=== PATIENT | male | born 1935 | race Caucasian/White ===

== ENCOUNTER 2019-09-27 08:49 | Emergency (ER) | payer OTHER ==
[~2019-09-27] VITALS: Ht 167.6 cm; Wt 72.6 kg
[2019-09-27 09:20] VITALS: BP_SYST 131
[2019-09-27 10:10] LABS: BASOPHILS % (AUTO) 0.7 % (0.0-2.0); EOSINOPHILS # (AUTO) 0.1 K/uL (0.0-0.4); EOSINOPHILS % (AUTO) 2.1 % (0.0-4.0); HEMATOCRIT 42.6 % (36-54); HEMOGLOBIN 14.2 g/dL (14.0-18.0); LYMPHOCYTES # (AUTO) 0.7 K/uL (1.0-5.5); LYMPHOCYTES % (AUTO) 10.9 % (20.5-51.5); MEAN CORPUSCULAR HEMOGLOBIN 30 pg (27-31); MEAN CORPUSCULAR HGB CONC 33 % (32-36); MEAN CORPUSCULAR VOLUME 90 fL (79.0-98.0); MONOCYTES # (AUTO) 0.5 K/uL (0.0-1.0); MONOCYTES % (AUTO) 8.1 % (1.7-9.3); NEUTROPHILS % (AUTO) 78.2 % (40.0-70.0); PLATELET COUNT (AUTO) 205 K/uL (130-430); RED BLOOD CELL COUNT(AUTO) 4.72 MIL/uL (4.2-6.2); RED CELL DISTRIBUTION WIDTH 13.4 % (9.0-15.0); WHITE BLOOD COUNT (AUTO) 6.3 K/uL (4.8-10.8)
[2019-09-27 10:39] LABS: ALANINE AMINOTRANSFERASE 25 U/L (12-78); ALBUMIN 3.8 g/dL (3.4-4.8); ANION GAP 4 (5-15); ASPARTATE AMINOTRANSFERASE 17 U/L (10-37); CALCIUM 8.7 mg/dL (8.4-11.0); CHLORIDE 105 mmol/L (98-107); CHOLESTEROL 176 mg/dL (<200); CREATININE 1.28 mg/dL (0.55-1.30); GLUCOSE 110 mg/dL (70-99); HDL CHOLESTEROL 60 mg/dL (>45); LDL CHOLESTEROL 107 mg/dL (<100); POTASSIUM 3.6 mmol/L (3.5-5.1); SODIUM SERUM 136 mmol/L (136-145); TOTAL BILIRUBIN 0.6 mg/dL (0.0-1.0); TRIGLYCERIDES 75 mg/dL (30-150); UREA NITROGEN, BLOOD 23 mg/dL (8-21)
[2019-09-27 10:40] LABS: ALCOHOL, BLOOD < 3 mg/dL (<10)
[2019-09-27 10:43] LABS: ACETAMINOPHEN < 1 ug/mL (1-30)
[2019-09-27 12:40] LABS: BILIRUBIN,URINE NEGATIVE (NEGATIVE); BLOOD, URINE NEGATIVE (NEGATIVE); CLARITY/URINE CLEAR (CLEAR); COLOR,URINE YELLOW (YELLOW); GLUCOSE,URINE NEGATIVE (NEGATIVE); KETONES,URINE NEGATIVE (NEGATIVE); LEUKOCYTE ESTERASE ,URINE NEGATIVE (NEGATIVE); NITRITE, URINE NEGATIVE (NEGATIVE); PH,URINE 5.5 (5.0-8.0); PROTEIN URINE NEGATIVE (NEGATIVE)
[2019-09-27 12:52] LABS: BARBITURATE, URINE NEGATIVE (NEG <=200); BENZODIAZEPINE, URINE NEGATIVE (NEG <=150); CANNABINOID, URINE NEGATIVE (NEG <=50); COCAINE, URINE NEGATIVE (NEG <=150); METHAMPHETAMINES SCREEN,URINE NEGATIVE (NEG <=500); OPIATE, URINE NEGATIVE (NEG <=100); PHENCYCLIDINE SCREEN,URINE NEGATIVE (NEG <=25); URINE AMPHETAMINE NEGATIVE (NEG <=500); URINE METHADONE NEGATIVE (NEG <=200); URINE OXYCODONE SCREEN NEGATIVE (NEG <=100); URINE PROPOXYPHENE SCREEN NEGATIVE (NEG <=300)
[2019-09-27 12:53] LABS: UR TRICYCLIC ANTIDEPRESSANTS NEGATIVE (NEG <=300)
[2019-09-27 14:38] VITALS: BP_SYST 129
== END 2019-09-27 15:00 ==
LOC: SED 08:49
DX: Z02.89 Encounter for other administrative examinations (principal); M54.5 Low back pain; I44.4 Left anterior fascicular block; R79.89 Other specified abnormal findings of blood chemistry
CPT/HCPCS: 36415; 80053; 80061; 80307; 81003; 83036; 85025; 87081; 93005; 99285; G0480; G0481; G0482

== ENCOUNTER 2019-09-28 12:57 | Outpatient (CLI) | payer OTHER ==
[2019-09-28 14:10] LABS: CHOLESTEROL 156 mg/dL (<200); HDL CHOLESTEROL 50 mg/dL (>45); TRIGLYCERIDES 54 mg/dL (30-150)
[2019-09-28 14:11] LABS: LDL CHOLESTEROL 94 mg/dL (<100)
== END 2019-09-28 20:16 | disposition home or self-care (01) ==
LOC: SLB 12:57
DX: Z00.00 Encounter for general adult medical examination without abnormal findings (principal); R73.09 Other abnormal glucose
CPT/HCPCS: 36415; 80061; 83036

== ENCOUNTER 2019-10-02 17:53 | Outpatient (CLI) | payer OTHER ==
[2019-10-02 18:21] LABS: ANION GAP 8 (5-15); CHLORIDE 106 mmol/L (98-107); CREATININE 1.53 mg/dL (0.55-1.30); GLUCOSE 93 mg/dL (70-99); SODIUM SERUM 137 mmol/L (136-145); UREA NITROGEN, BLOOD 32 mg/dL (8-21)
== END 2019-10-02 21:10 | disposition home or self-care (01) ==
LOC: SLB 17:53
PROVIDERS: ATTEND Internal Medicine
DX: Z00.00 Encounter for general adult medical examination without abnormal findings (principal)
CPT/HCPCS: 36415; 80048

== ENCOUNTER 2019-10-02 20:46 | Inpatient (IN) | payer OTHER ==
[~2019-10-02] VITALS: Ht 172.7 cm; Wt 59.9 kg
[2019-10-02] MEDS ORDERED: ACETAMINOPHEN 325 MG TABLET PO PRN (22:15)
[2019-10-02] MEDS ORDERED: MAG-AL HYDROX/SIMETH 30 ML UDC PO PRN (22:15)
[2019-10-02] MEDS ORDERED: MILK OF MAGNESIA 30 ML UDC PO PRN (22:15)
[2019-10-02 22:35] VITALS: BP_SYST 130
[2019-10-03] MEDS ORDERED: DOCUSATE SODIUM 100 MG CAPSULE PO SCH
[2019-10-03] MEDS ORDERED: MEMANTINE HCL 5 MG TABLET PO SCH
[2019-10-03] MEDS: cloNIDine HCL 0.1 MG TABLET PO PRN (00:06)
[2019-10-03] MEDS: ZOLPIDEM TARTRATE 5 MG TABLET PO PRN (00:06)
[2019-10-03] MEDS: D5/0.45 NS 1,000 ML IV SCH ×2 (00:07→08:28)
[2019-10-03 00:10] VITALS: BP_SYST 171
[2019-10-03 01:20] VITALS: BP_SYST 127
[2019-10-03 07:13] LABS: BILIRUBIN,URINE NEGATIVE (NEGATIVE); BLOOD, URINE NEGATIVE (NEGATIVE); CLARITY/URINE CLEAR (CLEAR); COLOR,URINE YELLOW (YELLOW); GLUCOSE,URINE NEGATIVE (NEGATIVE); KETONES,URINE NEGATIVE (NEGATIVE); LEUKOCYTE ESTERASE ,URINE NEGATIVE (NEGATIVE); NITRITE, URINE NEGATIVE (NEGATIVE); PROTEIN URINE NEGATIVE (NEGATIVE)
[2019-10-03 07:19] LABS: BASOPHILS # (AUTO) 0.1 K/uL (0.0-0.2); EOSINOPHILS # (AUTO) 0.3 K/uL (0.0-0.4); EOSINOPHILS % (AUTO) 3.7 % (0.0-4.0); HEMATOCRIT 38.3 % (36-54); LYMPHOCYTES # (AUTO) 1.2 K/uL (1.0-5.5); MEAN CORPUSCULAR HEMOGLOBIN 31 pg (27-31); MEAN CORPUSCULAR HGB CONC 34 % (32-36); MEAN CORPUSCULAR VOLUME 91 fL (79.0-98.0); MONOCYTES # (AUTO) 0.8 K/uL (0.0-1.0); NEUTROPHILS # (AUTO) 5.2 K/uL (1.8-7.7); NEUTROPHILS % (AUTO) 68.3 % (40.0-70.0); PLATELET COUNT (AUTO) 177 K/uL (130-430); RED BLOOD CELL COUNT(AUTO) 4.22 MIL/uL (4.2-6.2); RED CELL DISTRIBUTION WIDTH 13.2 % (9.0-15.0); WHITE BLOOD COUNT (AUTO) 7.6 K/uL (4.8-10.8)
[2019-10-03 07:32] LABS: ALANINE AMINOTRANSFERASE 25 U/L (12-78); ALBUMIN 3.3 g/dL (3.4-4.8); ANION GAP 8 (5-15); ASPARTATE AMINOTRANSFERASE 29 U/L (10-37); CALCIUM 8.5 mg/dL (8.4-11.0); CHLORIDE 105 mmol/L (98-107); CREATININE 1.22 mg/dL (0.55-1.30); GLUCOSE 94 mg/dL (70-99); POTASSIUM 3.8 mmol/L (3.5-5.1); SODIUM SERUM 135 mmol/L (136-145); TOTAL BILIRUBIN 0.7 mg/dL (0.0-1.0); UREA NITROGEN, BLOOD 32 mg/dL (8-21)
[2019-10-03] MEDS: QUEtiapine FUMARATE 25 MG TABLET PO SCH ×2 (08:27→22:08)
[2019-10-03] MEDS: MEMANTINE HCL 5 MG TABLET PO SCH ×2 (08:27→22:08)
[2019-10-03] MEDS: DOCUSATE SODIUM 100 MG CAPSULE PO SCH ×2 (08:27→22:09)
[2019-10-03] MEDS: MULTIVITS,CA,MINERALS/IRON/FA 1 TABLET PO SCH (08:27)
[2019-10-03 08:35] VITALS: BP_SYST 139
[2019-10-03 12:32] VITALS: BP_SYST 129
[2019-10-03] MEDS: NACL 0.9% 1,000 ML IV SCH (15:45)
[2019-10-03 16:50] VITALS: BP_SYST 123
[2019-10-03 20:48] VITALS: BP_SYST 160
[2019-10-04 00:25] VITALS: BP_SYST 150
[2019-10-04] MEDS: NACL 0.9% 1,000 ML IV SCH ×2 (03:50→17:10)
[2019-10-04 05:35] LABS: URINE SODIUM, RANDOM 40 mmol/L (40-220)
[2019-10-04 06:15] LABS: ALANINE AMINOTRANSFERASE 21 U/L (12-78); ANION GAP 7 (5-15); ASPARTATE AMINOTRANSFERASE 27 U/L (10-37); CALCIUM 8.4 mg/dL (8.4-11.0); CHLORIDE 106 mmol/L (98-107); CREATININE 1.12 mg/dL (0.55-1.30); GLUCOSE 80 mg/dL (70-99); PHOSPHORUS 2.8 mg/dL (2.7-4.5); POTASSIUM 3.8 mmol/L (3.5-5.1); SODIUM SERUM 138 mmol/L (136-145); TOTAL BILIRUBIN 0.6 mg/dL (0.0-1.0); UREA NITROGEN, BLOOD 26 mg/dL (8-21)
[2019-10-04 07:12] LABS: BASOPHILS % (AUTO) 0.6 % (0.0-2.0); EOSINOPHILS # (AUTO) 0.2 K/uL (0.0-0.4); EOSINOPHILS % (AUTO) 3.4 % (0.0-4.0); HEMATOCRIT 35.7 % (36-54); HEMOGLOBIN 12.2 g/dL (14.0-18.0); LYMPHOCYTES # (AUTO) 1.2 K/uL (1.0-5.5); LYMPHOCYTES % (AUTO) 18.3 % (20.5-51.5); MEAN CORPUSCULAR HEMOGLOBIN 31 pg (27-31); MEAN CORPUSCULAR HGB CONC 34 % (32-36); MEAN CORPUSCULAR VOLUME 90 fL (79.0-98.0); MONOCYTES # (AUTO) 0.7 K/uL (0.0-1.0); MONOCYTES % (AUTO) 10.5 % (1.7-9.3); NEUTROPHILS # (AUTO) 4.5 K/uL (1.8-7.7); NEUTROPHILS % (AUTO) 67.2 % (40.0-70.0); PLATELET COUNT (AUTO) 184 K/uL (130-430); RED BLOOD CELL COUNT(AUTO) 3.99 MIL/uL (4.2-6.2); RED CELL DISTRIBUTION WIDTH 13.3 % (9.0-15.0); WHITE BLOOD COUNT (AUTO) 6.7 K/uL (4.8-10.8)
[2019-10-04 08:00] VITALS: BP_SYST 153
[2019-10-04] MEDS: DOCUSATE SODIUM 100 MG CAPSULE PO SCH ×2 (09:11→21:29)
[2019-10-04] MEDS: MULTIVITS,CA,MINERALS/IRON/FA 1 TABLET PO SCH (09:11)
[2019-10-04] MEDS: QUEtiapine FUMARATE 25 MG TABLET PO SCH ×2 (09:11→21:29)
[2019-10-04] MEDS: MEMANTINE HCL 5 MG TABLET PO SCH ×2 (09:12→21:29)
[2019-10-04 10:14] LABS: CREATININE, URINE 48.9 mg/dL; MICROALBUMIN URINE RANDOM < 3.0 ug/ml (NOT ESTABLISHED); MICROALBUMIN/CREAT RATIO, UR <6.1 MG/G CRE (0.0-30.0)
[2019-10-04 12:50] VITALS: BP_SYST 148
[2019-10-04 16:39] VITALS: BP_SYST 148
[2019-10-04 20:00] VITALS: BP_SYST 163
[2019-10-05 00:12] VITALS: BP_SYST 146
[2019-10-05] MEDS: NACL 0.9% 1,000 ML IV SCH (06:30)
[2019-10-05 08:00] VITALS: BP_SYST 149
[2019-10-05] MEDS: MULTIVITS,CA,MINERALS/IRON/FA 1 TABLET PO SCH (08:31)
[2019-10-05] MEDS: DOCUSATE SODIUM 100 MG CAPSULE PO SCH ×2 (08:31→21:02)
[2019-10-05] MEDS: MEMANTINE HCL 5 MG TABLET PO SCH ×2 (08:32→21:03)
[2019-10-05 09:24] LABS: ANION GAP 8 (5-15); CALCIUM 8.2 mg/dL (8.4-11.0); CHLORIDE 105 mmol/L (98-107); CREATININE 1.06 mg/dL (0.55-1.30); GLUCOSE 78 mg/dL (70-99); POTASSIUM 3.7 mmol/L (3.5-5.1); SODIUM SERUM 135 mmol/L (136-145); UREA NITROGEN, BLOOD 25 mg/dL (8-21)
[2019-10-05 13:22] VITALS: BP_SYST 128
[2019-10-05 17:35] VITALS: BP_SYST 125
[2019-10-05 19:00] VITALS: BP_SYST 151
[2019-10-05 20:00] VITALS: BP_SYST 151
[2019-10-05] MEDS: QUEtiapine FUMARATE 25 MG TABLET PO SCH (21:03)
[2019-10-05] MEDS: LORazepam 1 MG TABLET PO PRN (22:02)
[2019-10-06] VITALS (12 sets, daily range): BP systolic 119–207
[2019-10-06] MEDS: cloNIDine HCL 0.1 MG TABLET PO PRN ×3 (00:10→20:25)
[2019-10-06] MEDS: NACL 0.9% 1,000 ML IV SCH ×3 (06:08→22:30)
[2019-10-06] MEDS: MEMANTINE HCL 5 MG TABLET PO SCH ×2 (10:12→20:24)
[2019-10-06] MEDS: DOCUSATE SODIUM 100 MG CAPSULE PO SCH ×2 (10:12→20:22)
[2019-10-06] MEDS: MULTIVITS,CA,MINERALS/IRON/FA 1 TABLET PO SCH (10:12)
[2019-10-06] MEDS: LORazepam 1 MG TABLET PO PRN (20:24)
[2019-10-06] MEDS: ZOLPIDEM TARTRATE 5 MG TABLET PO PRN (20:24)
[2019-10-06] MEDS: QUEtiapine FUMARATE 25 MG TABLET PO SCH (20:24)
[2019-10-07 00:40] VITALS: BP_SYST 103
[2019-10-07] MEDS: NACL 0.9% 1,000 ML IV SCH ×2 (01:02→15:00)
[2019-10-07 08:00] VITALS: BP_SYST 132
[2019-10-07] MEDS: DOCUSATE SODIUM 100 MG CAPSULE PO SCH ×2 (08:23→22:30)
[2019-10-07] MEDS: MULTIVITS,CA,MINERALS/IRON/FA 1 TABLET PO SCH (08:23)
[2019-10-07] MEDS: QUEtiapine FUMARATE 25 MG TABLET PO SCH ×2 (08:23→22:30)
[2019-10-07] MEDS: MEMANTINE HCL 5 MG TABLET PO SCH ×2 (08:23→22:30)
[2019-10-07 08:29] LABS: ANION GAP 8 (5-15); CALCIUM 8.1 mg/dL (8.4-11.0); CHLORIDE 106 mmol/L (98-107); CREATININE 1.11 mg/dL (0.55-1.30); GLUCOSE 80 mg/dL (70-99); POTASSIUM 3.7 mmol/L (3.5-5.1); SODIUM SERUM 137 mmol/L (136-145); UREA NITROGEN, BLOOD 24 mg/dL (8-21)
[2019-10-07 12:00] VITALS: BP_SYST 101
[2019-10-07 16:00] VITALS: BP_SYST 135
[2019-10-07 20:00] VITALS: BP_SYST 135; BP_SYST 159
[2019-10-08 01:08] VITALS: BP_SYST 135
[2019-10-08 02:59] VITALS: BP_SYST 139
[2019-10-08 08:00] VITALS: BP_SYST 157
[2019-10-08] MEDS: MEMANTINE HCL 5 MG TABLET PO SCH ×2 (10:07→20:12)
[2019-10-08] MEDS: DOCUSATE SODIUM 100 MG CAPSULE PO SCH ×2 (10:07→20:12)
[2019-10-08] MEDS: MULTIVITS,CA,MINERALS/IRON/FA 1 TABLET PO SCH (10:08)
[2019-10-08 12:00] VITALS: BP_SYST 171
[2019-10-08] MEDS: QUEtiapine FUMARATE 25 MG TABLET PO SCH ×2 (12:27→20:12)
[2019-10-08 16:00] VITALS: BP_SYST 153
[2019-10-08 19:34] VITALS: BP_SYST 158
[2019-10-08] MEDS: NACL 0.9% 1,000 ML IV SCH (20:00)
[2019-10-08] MEDS: cloNIDine HCL 0.1 MG TABLET PO PRN (21:40)
== END 2019-10-08 21:45 | DRG 682 ==
LOC: STU 21:32 → SMU 10-04 13:18
PROVIDERS: ADMIT Internal Medicine; ATTEND Internal Medicine
DX: N17.9 Acute kidney failure, unspecified (principal); G93.41 Metabolic encephalopathy; E44.0 Moderate protein-calorie malnutrition; F03.91 Unspecified dementia, unspecified severity, with behavioral disturbance; F29 Unspecified psychosis not due to a substance or known physiological condition; E66.9 Obesity, unspecified; E86.0 Dehydration; M19.90 Unspecified osteoarthritis, unspecified site; Z91.19 Patient's noncompliance with other medical treatment and regimen; Z68.20 Body mass index [BMI] 20.0-20.9, adult
CPT/HCPCS: 36415; 76770; 80048; 80053; 81003; 82043; 82570; 82570-TC; 83735-TC; 84100-TC; 84302-TC; 84550-TC; 85025; 87081; 87086; G0378; J7030

== ENCOUNTER → 2019-10-09 | Outpatient (CLI) | payer OTHER ==
[2019-10-09 11:20] LABS: CHOLESTEROL 163 mg/dL (<200); HDL CHOLESTEROL 51 mg/dL (>45); LDL CHOLESTEROL 102 mg/dL (<100); TRIGLYCERIDES 51 mg/dL (30-150)
== END | disposition home or self-care (01) ==
LOC: SLB 10:42
PROVIDERS: ATTEND Psychiatry & Neurology Psychiatry
DX: Z00.00 Encounter for general adult medical examination without abnormal findings (principal)
CPT/HCPCS: 36415; 80061; 83036

== ENCOUNTER 2019-11-18 18:04 | Inpatient (IN) | payer OTHER ==
[~2019-11-18] VITALS: Ht 162.6 cm; Wt 53.1 kg
[2019-11-18 18:11] VITALS: BP_SYST 122
--- NOTE | 2019-11-18 18:15 | NUR ---
Patient triaged and placed in waiting room. VSS and patient appears in no acute distress at this time. Accompanied by EMS, awaiting available bed, and MD notified of need for MSE.
--- NOTE | 2019-11-18 19:00 | NUR ---
ER at bedside examining patient.
--- NOTE | 2019-11-18 19:15 | NUR ---
Pt brought in by BLS Ambulance. Pt brought in by ambulance after [facility] staff stated that the patient had difficulty breathing. Staff stated that patient had sp02 saturation of 85% prior to EMS arrival. Pt is normally nonverbal, unable to answer questions. At time of ED presentation, pt VSS, resting comfortably, no acute signs of distress, pain, guarding, accessory muscle use or retractions. VSS
--- NOTE | 2019-11-18 20:00 | NUR ---
ER at bedside examining patient.
[2019-11-18 20:05] LABS: BASOPHILS # (AUTO) 0.1 K/uL (0.0-0.2); BASOPHILS % (AUTO) 0.5 % (0.0-2.0); EOSINOPHILS # (AUTO) 0.1 K/uL (0.0-0.4); EOSINOPHILS % (AUTO) 0.9 % (0.0-4.0); HEMATOCRIT 43.1 % (36-54); LYMPHOCYTES # (AUTO) 1.4 K/uL (1.0-5.5); LYMPHOCYTES % (AUTO) 10.5 % (20.5-51.5); MEAN CORPUSCULAR HEMOGLOBIN 30 pg (27-31); MEAN CORPUSCULAR HGB CONC 32 % (32-36); MEAN CORPUSCULAR VOLUME 91 fL (79.0-98.0); MONOCYTES # (AUTO) 0.8 K/uL (0.0-1.0); MONOCYTES % (AUTO) 5.9 % (1.7-9.3); NEUTROPHILS # (AUTO) 11.2 K/uL (1.8-7.7); NEUTROPHILS % (AUTO) 82.2 % (40.0-70.0); PLATELET COUNT (AUTO) 290 K/uL (130-430); RED BLOOD CELL COUNT(AUTO) 4.75 MIL/uL (4.2-6.2); RED CELL DISTRIBUTION WIDTH 13.6 % (9.0-15.0); WHITE BLOOD COUNT (AUTO) 13.6 K/uL (4.8-10.8)
[2019-11-18 20:11] LABS: ANION GAP 10 (5-15); CALCIUM 8.7 mg/dL (8.4-11.0); CHLORIDE 118 mmol/L (98-107); CREATININE 1.27 mg/dL (0.55-1.30); GLUCOSE 77 mg/dL (70-99); POTASSIUM 3.4 mmol/L (3.5-5.1); SODIUM SERUM 149 mmol/L (136-145); UREA NITROGEN, BLOOD 28 mg/dL (8-21)
[2019-11-18] MEDS ORDERED: cefTRIAXone 1 GM in D5W 50 ML IV ONE (20:15)
[2019-11-18] MEDS ORDERED: LORazepam 2 MG/ML VIAL IVP ONE (20:15)
[2019-11-18] MEDS ORDERED: NACL 0.9% 1,000 ML IV ONE (20:15)
[2019-11-18 20:17] LABS: ALANINE AMINOTRANSFERASE 29 U/L (12-78); ALBUMIN 2.2 g/dL (3.4-4.8); ASPARTATE AMINOTRANSFERASE 24 U/L (10-37); TOTAL BILIRUBIN 0.6 mg/dL (0.0-1.0)
[2019-11-18 20:18] LABS: ALCOHOL, BLOOD < 3 mg/dL (<10)
--- NOTE | 2019-11-18 21:00 | NUR ---
Pt resting in ED bed comfortably
--- NOTE | 2019-11-18 21:45 | NUR ---
Patient will be admitted to care of [facility]. Admitted to Tele unit. Will go to room 113B. Belongings list completed. Complete and up to date summary report printed. SBAR report to be given at bedside with opportunity for questions.
[2019-11-18] MEDS ORDERED: ACET-2165 PO ×2 (21:52→21:53)
[2019-11-18] MEDS ORDERED: CAT.1 PO (21:54)
[2019-11-18] MEDS ORDERED: DOCU-144 PO (21:55)
[2019-11-18] MEDS ORDERED: HYDR-3698 PO (21:55)
[2019-11-18] MEDS ORDERED: LORA-258 PO (21:56)
[2019-11-18] MEDS ORDERED: MAG-149 (22:00)
[2019-11-18] MEDS ORDERED: ANT30 PO (22:00)
[2019-11-18] MEDS ORDERED: MEGE40TA PO (22:01)
[2019-11-18] MEDS ORDERED: MELA5TAB12 PO (22:03)
[2019-11-18] MEDS ORDERED: MEGE400O4 PO (22:03)
[2019-11-18] MEDS ORDERED: MEMA10TA PO (22:04)
[2019-11-18] MEDS ORDERED: MOM PO (22:05)
[2019-11-18] MEDS ORDERED: MOXI400T30 PO (22:06)
[2019-11-18] MEDS ORDERED: MULT-1100 PO (22:07)
[2019-11-18] MEDS ORDERED: SER25 PO (22:07)
[2019-11-18] MEDS ORDERED: RISP1TAB7 PO (22:08)
[2019-11-18] MEDS ORDERED: ZOLP5TAB2 PO (22:09)
--- NOTE | 2019-11-18 22:09 | NUR ---
Medication reconciliation completed with information provided by [facility]. Any prior medication reconciliation on file was reviewed and corrected.
[2019-11-19 00:10] LABS: BILIRUBIN,URINE 1+ (NEGATIVE); CLARITY/URINE CLEAR (CLEAR); COLOR,URINE YELLOW (YELLOW); GLUCOSE,URINE NEGATIVE (NEGATIVE); KETONES,URINE 1+ (NEGATIVE); LEUKOCYTE ESTERASE ,URINE NEGATIVE (NEGATIVE); NITRITE, URINE NEGATIVE (NEGATIVE); PH,URINE 5.5 (5.0-8.0); PROTEIN URINE NEGATIVE (NEGATIVE)
[2019-11-19 00:11] LABS: BLOOD, URINE TRACE (NEGATIVE)
--- NOTE | 2019-11-19 00:15 | NUR ---
ADMISSION NOTE: Received patient from ER via gurney. Patient admitted with diagnosis of PNA, SEPSIS . Patient is awake, alert, oriented X 1. Patient oriented to hospital room, call light, toileting, pain management and safety-teach back done. Patient informed that DALIA will be HIS nurse and that their room number is 133A. Personal belongings checked and Belongings List documented. Call light within reach.
[2019-11-19 00:49] LABS: BACTERIA,URINE FEW /HPF (None Seen); WBC,URINE 0-3 /HPF (0-3)
[2019-11-19 01:00] VITALS: BP_SYST 110
--- NOTE | 2019-11-19 01:00 | NUR ---
ASSUMED CARE. RECEIVED AWAKE, ALERT, NON-VERBAL. AFEBRILE, NOT IN ACUTE DISTRESS. NO PAIN OR DISCOMFORT NOTED. WITH SALINE LOCK TO THE RIGHT FOREARM #20 INTACT. SAO2=97% ON ROOM AIR. SINUS RHYTHM AT 70-80'S/MINUTE ON THE MONITOR. VS STABLE, WILL CONTINUE TO MONITOR. NEEDS ATTENDED.
[2019-11-19] MEDS ORDERED: AZITHROMYCIN 500 MG/VIAL (ZITHROMAX) IV ONE (02:10)
[2019-11-19] MEDS ORDERED: cefTRIAXone 1 GM IVPB PREMIX 50 ML IV ONE (02:10)
[2019-11-19] MEDS: 0.45% NACL 1,000 ML IV SCH ×3 (02:13→17:38)
--- NOTE | 2019-11-19 02:14 | NUR ---
IV FLUID 1/2 NS @ 75 ML/HR AND ROCEPHIN 1 GM IVPB GIVEN ORDERED.
[2019-11-19] MEDS: AZITHROMYCIN 500 MG in NS 250 ML IV SCH (02:45)
--- NOTE | 2019-11-19 02:45 | NUR ---
ZITHROMAX 500 MG IVPB ADMINISTERED.
--- NOTE | 2019-11-19 04:00 | NUR ---
ASLEEP, NOT IN ANY KIND OF DISTRESS. NO PAIN OR DISCOMFORT NOTED. SIDE RAILS UP,CALL LIGHT WITHIN REACH. KEPT WARM AND COMFORTABLE.
--- NOTE | 2019-11-19 05:25 | NUR ---
CONSULTATION PAGED/CALLED Reason for Consultation: PNA Person Who was Notified: MARILIN Consulting Physician: DR. SMITH; CAKE TESTER- DR. LEON Ordering Physician: DR. GLEASON
--- NOTE | 2019-11-19 05:27 | NUR ---
CONSULTATION PAGED/CALLED Reason for Consultation: SEPSIS Person Who was Notified:MARILIN Consulting Physician: NICOLE BRIGHT Ordering Physician: DR. GLEASON FAXED FACESHEET TO 'S OFFICE f)[phone]
--- NOTE | 2019-11-19 07:26 | NUR ---
ENDORSED CARE TO TITUS LEWIS
--- NOTE | 2019-11-19 07:30 | NUR ---
Opening note Patient is A/ox1, nonverbal, awake. No sob. No complaints of pain. Iv patent, intact, and infusing fluids as ordered. No adverse side effects noted. No infiltration noted. On safety and aspiration precautions, HOB kept elevated, 3 side rails up, call light within reach. patient in stable condition. Will continue to monitor.
--- NOTE | 2019-11-19 07:30 | NUR ---
ENDORSED CARE TO TITUS LEWIS
[2019-11-19 08:00] VITALS: BP_SYST 158
[2019-11-19 08:31] LABS: BASOPHILS # (AUTO) 0.1 K/uL (0.0-0.2); BASOPHILS % (AUTO) 0.4 % (0.0-2.0); EOSINOPHILS # (AUTO) 0.1 K/uL (0.0-0.4); EOSINOPHILS % (AUTO) 0.7 % (0.0-4.0); HEMATOCRIT 44.5 % (36-54); HEMOGLOBIN 14.4 g/dL (14.0-18.0); LYMPHOCYTES # (AUTO) 1.1 K/uL (1.0-5.5); LYMPHOCYTES % (AUTO) 7.7 % (20.5-51.5); MEAN CORPUSCULAR HEMOGLOBIN 29 pg (27-31); MEAN CORPUSCULAR HGB CONC 32 % (32-36); MEAN CORPUSCULAR VOLUME 91 fL (79.0-98.0); MONOCYTES # (AUTO) 0.6 K/uL (0.0-1.0); MONOCYTES % (AUTO) 4.1 % (1.7-9.3); NEUTROPHILS # (AUTO) 12.1 K/uL (1.8-7.7); NEUTROPHILS % (AUTO) 87.1 % (40.0-70.0); PLATELET COUNT (AUTO) 323 K/uL (130-430); RED BLOOD CELL COUNT(AUTO) 4.91 MIL/uL (4.2-6.2); RED CELL DISTRIBUTION WIDTH 13.7 % (9.0-15.0); WHITE BLOOD COUNT (AUTO) 13.8 K/uL (4.8-10.8)
[2019-11-19 09:04] LABS: ALANINE AMINOTRANSFERASE 26 U/L (12-78); ALBUMIN 2.8 g/dL (3.4-4.8); ANION GAP 14 (5-15); ASPARTATE AMINOTRANSFERASE 24 U/L (10-37); CALCIUM 8.9 mg/dL (8.4-11.0); CHLORIDE 116 mmol/L (98-107); CREATININE 1.39 mg/dL (0.55-1.30); GLUCOSE 86 mg/dL (70-99); POTASSIUM 3.4 mmol/L (3.5-5.1); SODIUM SERUM 152 mmol/L (136-145); TOTAL BILIRUBIN 0.7 mg/dL (0.0-1.0); UREA NITROGEN, BLOOD 27 mg/dL (8-21)
--- NOTE | 2019-11-19 09:30 | NUR ---
NPO Patient unable to eat breakfast. Poor swallowing noted. Patient currently NPO.
--- NOTE | 2019-11-19 10:35 | NUR ---
Nutrition Update Matthew Scale 14 noted. Pt admitted for pneumonia, sepsis. Diet: cardiac BMI: 17.6 kg/m2 RD to follow per nutrition care standards.
--- NOTE | 2019-11-19 11:00 | NUR ---
misty ESCOBAR Spoke with Dr. quinones about patients poor swallowing. New orders noted. Patient to remain NPO.
--- NOTE | 2019-11-19 11:27 | NUR ---
S.T. SWALLOW EVAL SWALLOW EVAL COMPLETED. PT PRESENTS W/ SEV PRE-ORAL, ORAL, AND PHARYNGEAL DYSPHAGIA W/ POOR BOLUS AWARENESS, POOR BOLUS CORPORATE SCHEDULER, POOR BOLUS MANIPULATION, SEV DELAYED OR ABSENT SWALLOW WITH COUGHING ON TSP HONEY THICK LIQUIDS. PT W/ DIFFICULTY MANAGING OWN SECRETIONS WITH VERY WEAK COUGH. PT IS AT HIGH RISK FOR ASPIRATION. REC: STRICT NPO. ALTERNATIVE METHOD FOR FEEDING. NURSE TITUS NOTIFIED. G8996 CM G8997 CM G8998 CM NOMS LEVEL 2
[2019-11-19 12:42] VITALS: BP_SYST 147
--- NOTE | 2019-11-19 14:34 | NUR ---
Skin care Skin care provided. patient turned and repositioned. Linens changed. No other needs at this time.
--- NOTE | 2019-11-19 16:30 | NUR ---
skin care Skin care provided, oral care provided. No other needs at this time.
[2019-11-19 16:32] VITALS: BP_SYST 141
--- NOTE | 2019-11-19 17:54 | NUR ---
rounds patient noted with incontinence of urine. Skin care provided. linens changed. No other needs at this time.
--- NOTE | 2019-11-19 18:14 | NUR ---
CONSULTATION PAGED REASON FOR CONSULTATION:WEAKNESS WAS CONSULT CALLED?Y PERSON WHO WAS NOTIFIED:JOSSE CONSULTING PHYSICIAN:MELQUIADES ELLISON DIRECTOR OF FEDERAL SALES SPECIALTY:NEURO DIRECTOR OF FEDERAL SALES PHONE NUMBER:[phone] REQUESTING PHYSICIAN:AMARJIT LITTLE
--- NOTE | 2019-11-19 18:23 | NUR ---
CONSULTATION PAGED REASON FOR CONSULTATION:PNA WAS CONSULT CALLED?Y PERSON WHO WAS NOTIFIED:MIREYA CONSULTING PHYSICIAN:PEDRO FRENCH FARM SERVICE ADVISER SPECIALTY:INFECTIOUS DISEASE FARM SERVICE ADVISER PHONE NUMBER:[phone] REQUESTING PHYSICIAN:AMARJIT LITTLE
--- NOTE | 2019-11-19 18:36 | NUR ---
closing note Patient is A/ox1, nonverbal, awake. No sob. No complaints of pain. Iv patent, intact, and infusing fluids as ordered. No adverse side effects noted. No infiltration noted. On safety and aspiration precautions, HOB kept elevated, 3 side rails up, call light within reach. patient in stable condition. All needs met.
[2019-11-19 18:41] LABS: BASOPHILS # (AUTO) 0.1 K/uL (0.0-0.2); BASOPHILS % (AUTO) 0.6 % (0.0-2.0); EOSINOPHILS # (AUTO) 0.1 K/uL (0.0-0.4); HEMOGLOBIN 15.1 g/dL (14.0-18.0); LYMPHOCYTES # (AUTO) 1.4 K/uL (1.0-5.5); LYMPHOCYTES % (AUTO) 10.2 % (20.5-51.5); MEAN CORPUSCULAR HEMOGLOBIN 29 pg (27-31); MEAN CORPUSCULAR HGB CONC 32 % (32-36); MEAN CORPUSCULAR VOLUME 91 fL (79.0-98.0); MONOCYTES # (AUTO) 0.8 K/uL (0.0-1.0); MONOCYTES % (AUTO) 6.1 % (1.7-9.3); NEUTROPHILS # (AUTO) 11.2 K/uL (1.8-7.7); NEUTROPHILS % (AUTO) 82.1 % (40.0-70.0); PLATELET COUNT (AUTO) 299 K/uL (130-430); RED BLOOD CELL COUNT(AUTO) 5.16 MIL/uL (4.2-6.2); RED CELL DISTRIBUTION WIDTH 13.7 % (9.0-15.0); WHITE BLOOD COUNT (AUTO) 13.7 K/uL (4.8-10.8)
[2019-11-19] MEDS: D5/0.45 NS 1,000 ML IV SCH (18:48)
--- NOTE | 2019-11-19 19:10 | NUR ---
OPENING NOTES Late entry due to patient care. Patient in bed sleeping. No s/s of acute distress noted. Breathing even and unlabored. IVF infusing well, HOB raised, nasal canula attached properly, on 2L of oxygen. Bed alarm on. Bed is locked and at lowest position. Will continue to monitor.
--- NOTE | 2019-11-19 19:10 | NUR ---
OPENING NOTES Bedside report received from [facility] nurse. Patient received lying in bed, awake, no s/s of acute distress noted. Breathing is even and unlabored. HOB raised, trach to TBAR attached. Gtube infusing well. Sandoval attached, secured and draining by gravity. Bed alarm on. Will continue to monitor. Addendum: 11/20/19 at 0533 by Chuy Romero RN INPUTTED FOR WRONG PATIENT
[2019-11-19 20:00] VITALS: BP_SYST 145
[2019-11-19] MEDS: cefTRIAXone 1 GM IVPB PREMIX 50 ML IV SCH (20:07)
--- NOTE | 2019-11-19 21:00 | NUR ---
ROUNDS Patient in bed sleeping. No s/s of acute distress noted. Breathing even and unlabored. HOB raised. Nasal canula attached properly. IVF infusing well. All needs met. bed alarm on. Will continue to monitor.
--- NOTE | 2019-11-19 23:00 | NUR ---
ROUNDS Patient in bed asleep. No signs of discomfort noted. All needs met. Call light with patient. Bed alarm on. Will continue to monitor.
[2019-11-20] VITALS: BP_SYST 151
[2019-11-20] MEDS: AZITHROMYCIN 500 MG in NS 250 ML IV SCH ×2 (00:54→23:34)
--- NOTE | 2019-11-20 01:00 | NUR ---
VOID/PERICARE Pericare done by RN at this time. Sheets replaced. All needs met. Bed alarm on. Will continue to monitor.
--- NOTE | 2019-11-20 03:00 | NUR ---
ROUNDS Patient in bed asleep. No s/s of acute distress noted. Breathing even and unlabored. HOB raised. IVF infusing well. Bed alarm on. Will continue to monitor.
--- NOTE | 2019-11-20 05:00 | NUR ---
ROUNDS Patient in bed sleeping. No signs of discomfort noted. Chest rise and fall even bilaterally. All needs met. Call light with patient. Bed alarm on. Will continue to monitor.
--- NOTE | 2019-11-20 06:18 | NUR ---
CLOSING NOTES Patient at bedside sleeping at this time. No s/s of acute distress noted. Breathing is even and unlabored. HOB raised, nasal canula attached properly, on 2L of oxygen. IVF infusing well, IV site patent, no signs of infiltration or infection noted. All needs met throughout shift. Fall and safety precautions maintained throughout shift. Will continue to monitor until patient care is endorsed to oncoming dayshift nurse.
[2019-11-20 08:00] VITALS: BP_SYST 108
[2019-11-20 09:12] LABS: ANION GAP 8 (5-15); CALCIUM 8.4 mg/dL (8.4-11.0); CHLORIDE 119 mmol/L (98-107); GLUCOSE 89 mg/dL (70-99); POTASSIUM 3.2 mmol/L (3.5-5.1); SODIUM SERUM 147 mmol/L (136-145); UREA NITROGEN, BLOOD 22 mg/dL (8-21)
--- NOTE | 2019-11-20 09:30 | NUR ---
skin care Patient noted with episode of urine incontinence. Skin care provided. linens changed. Oral care provided. No other needs at this time.
--- NOTE | 2019-11-20 11:45 | NUR ---
Rounds Patient noted with incontinence of bladder. Linens changed, skin care provided. no other needs at this time.
[2019-11-20 12:48] VITALS: BP_SYST 147
--- NOTE | 2019-11-20 13:50 | NUR ---
Rounds Patient resting in bed at this time. No signs of pain. No SOB. Patient kept NPO. HOB kept elevated, 3 side rails up, call light within reach. patient in stable condition.
[2019-11-20] MEDS: D5/0.45 NS 1,000 ML IV SCH (14:53)
--- NOTE | 2019-11-20 15:55 | NUR ---
Rounds patient resting in bed at this time, no complaints of pain. IV patent, intact, and infusing fluids as ordered. no adverse side effects noted. No infiltration noted. No other needs at this time. patient in stable condition.
--- NOTE | 2019-11-20 17:15 | NUR ---
CONSULT GI DYSPHAGIA KYLEE HOLLIDAY [phone] S/W RICHY EXCHANGE
--- NOTE | 2019-11-20 17:18 | NUR ---
Dr. Edwards reported patients potassium to MD. New orders noted. patient to be seen by GI. Attempted to reach family for possible GTube placement if needed. Called daughter left message. Awaiting call back.
[2019-11-20 17:19] VITALS: BP_SYST 152
[2019-11-20] MEDS: KCL 40mEq in D5/0.45NS 1000 mL 1,000 ML IV SCH (17:25)
--- NOTE | 2019-11-20 18:12 | NUR ---
Closing note Patient resting in bed at this time, A/ox1. nonverbal, awake. No sob. No complaints of pain. Iv patent, intact, and infusing fluids as ordered. No adverse side effects noted. No infiltration noted. On safety and aspiration precautions, HOB kept elevated, 3 side rails up, call light within reach, bed alarm on. patient in stable condition. All needs met.
--- NOTE | 2019-11-20 19:05 | NUR ---
OPENING NOTES Late entry due to patient care. Bedside report received from dayshift nurse. Patient received lying in bed, appears to be asleep, eyes closed, no s/s of acute distress noted. Breathing even and unlabored, HOB raised, nasal canula attached properly, on 2L of oxygen. Bed alarm on. Three side rails up. Bed locked and at lowest position. Will continue to monitor.
[2019-11-20 20:00] VITALS: BP_SYST 147
[2019-11-20] MEDS: cefTRIAXone 1 GM IVPB PREMIX 50 ML IV SCH (20:19)
--- NOTE | 2019-11-20 21:00 | NUR ---
ROUNDS Patient in bed, sleeping. No signs of discomfort noted. Chest rise and fall even bilaterally. IVF infusing well. Bed alar on. Will continue to monitor.
--- NOTE | 2019-11-20 23:00 | NUR ---
INCONTINENT CARE Taylor care rendered by CALCINER FEEDER and RN. Patient tolerated well. HOB raised, IVF infusing. All needs met. Bed alarm on. Will continue to monitor.
--- NOTE | 2019-11-21 01:00 | NUR ---
ROUNDS Patient in bed sleeping at this time. No s/s of acute distress noted. Breathing even and unlabored. IVF infusing well. HOB raised, nasal canula attached properly. Bed alarm on. Will continue to monitor.
[2019-11-21 02:14] VITALS: BP_SYST 143
--- NOTE | 2019-11-21 03:00 | NUR ---
ROUNDS Patient in bed asleep at this time. No s/s of acute distress noted. Breathing even and unlabored. IVF infusing well. Call light with patient. Bed alarm on. Will continue to monitor.
[2019-11-21] MEDS: KCL 40mEq in D5/0.45NS 1000 mL 1,000 ML IV SCH ×3 (03:15→18:07)
--- NOTE | 2019-11-21 05:40 | NUR ---
PULLED IV OUT/NEW IV Patient pulled out IV at right forearm, catheter fully intact, no active bleeding noted. New IV site inserted at right forearm, 22 gauge. IVF infusing well. No signs of infiltration noted. Bed alarm on. Call light with patient.
--- NOTE | 2019-11-21 06:14 | NUR ---
CLOSING NOTES Patient in bed asleep at this time. No s/s of acute distress noted. Breathing is even and unlabored. HOB raised, nasal canula attached properly, on 2L of oxygen. IVF infusing well, IV site patent, no signs of infiltration or infectio noted. All needs met throughout shift. Fall and safety precautions maintained throughout shift. Will continue to monitor until patient care is endorsed to oncoming dayshift nurse.
[2019-11-21 07:30] LABS: BASOPHILS % (AUTO) 0.4 % (0.0-2.0); EOSINOPHILS # (AUTO) 0.2 K/uL (0.0-0.4); EOSINOPHILS % (AUTO) 1.7 % (0.0-4.0); HEMATOCRIT 42.4 % (36-54); HEMOGLOBIN 14.2 g/dL (14.0-18.0); LYMPHOCYTES # (AUTO) 1.3 K/uL (1.0-5.5); LYMPHOCYTES % (AUTO) 12.7 % (20.5-51.5); MEAN CORPUSCULAR HEMOGLOBIN 30 pg (27-31); MEAN CORPUSCULAR HGB CONC 34 % (32-36); MEAN CORPUSCULAR VOLUME 90 fL (79.0-98.0); MONOCYTES # (AUTO) 0.7 K/uL (0.0-1.0); MONOCYTES % (AUTO) 6.3 % (1.7-9.3); NEUTROPHILS # (AUTO) 8.2 K/uL (1.8-7.7); NEUTROPHILS % (AUTO) 78.9 % (40.0-70.0); PLATELET COUNT (AUTO) 280 K/uL (130-430); RED BLOOD CELL COUNT(AUTO) 4.72 MIL/uL (4.2-6.2); RED CELL DISTRIBUTION WIDTH 13.5 % (9.0-15.0); WHITE BLOOD COUNT (AUTO) 10.4 K/uL (4.8-10.8)
[2019-11-21 07:49] LABS: ANION GAP 8 (5-15); CALCIUM 8.3 mg/dL (8.4-11.0); CHLORIDE 115 mmol/L (98-107); CREATININE 1.07 mg/dL (0.55-1.30); GLUCOSE 110 mg/dL (70-99); POTASSIUM 3.4 mmol/L (3.5-5.1); SODIUM SERUM 147 mmol/L (136-145); UREA NITROGEN, BLOOD 13 mg/dL (8-21)
--- NOTE | 2019-11-21 07:53 | NUR ---
RN INITIAL NOTES RECEIVED PATIENT IN BED AWAKE GARBLED WHEN TALKING NOT ABLE TO UNDERSTAND WORD COMING FROM HIS MOUTH , PATIENT RESP EVEN AND UNLABORED HIS IV NEWLY REINSERTED INFUSING WITH IVF ORDERED , PATIENT SEEN BY DR DIEHL INFORMED PATIENT FAILED ST EVAL AND DR DIEHL WILL WAIT FOR A FEW DAYS FOR NOW ,SATING 1005 Addendum: 11/21/19 at 0758 by Eufemia Malloy RN CORRECTION. PATIENT SATING 100% WITH 2 L/MIN
[2019-11-21 08:15] VITALS: BP_SYST 166
--- NOTE | 2019-11-21 10:03 | NUR ---
ROUNDS SLEEPING AT THIS TIME, NO DISTRESS , NEEDS ATTENDED
[2019-11-21 12:00] VITALS: BP_SYST 126
--- NOTE | 2019-11-21 14:04 | NUR ---
Dietitian Recommendations *Recommend initiate nutrition support in 24 hrs. *Consider NGT feeding Jevity 1.2 at 50ml/hr. Please see Nutritional Assessment for details. CHILANGO, RD
--- NOTE | 2019-11-21 15:19 | NUR ---
KENDRA RESENDEZ FROM [facility] CALLED AND REPORT GIVEN FOR PATIENT CONDITION.
--- NOTE | 2019-11-21 15:59 | NUR ---
DC PLANNING: CLINICALS FAXED TO [facility]) @ [facility]
[2019-11-21 16:00] VITALS: BP_SYST 165
--- NOTE | 2019-11-21 17:00 | NUR ---
DR GLEASON CALLED DR GLEASON INFORMED ABOUT PATIENT CONDITION AND SAID MAINTAIN NPO AND CONT WITH IVF ORDERED , PATIENT CONDITION STILL THE SAME NO FACIAL GRIMACE , WITH RESISTANCE TO CARE Addendum: 11/21/19 at 1815 by Eufemia Malloy RN DR GLEASON INFORMED ABOUT BP READINGS SAID HE WILL COME AND SEE THE PATIENT KEEP NPO
--- NOTE | 2019-11-21 19:30 | NUR ---
Pt is lying in bed awake and oriented to his name only. No acute distress noted. IVF of D5 1/2NS w/ 40meq KCL is infusing well in RFA at 100ml/hr without any signs of infiltration at the IV site. Fall and safety precautions are in place.
[2019-11-21 20:00] VITALS: BP_SYST 127
[2019-11-21] MEDS: cefTRIAXone 1 GM IVPB PREMIX 50 ML IV SCH (21:01)
--- NOTE | 2019-11-21 22:00 | NUR ---
Pt remains confused and disoriented. IVF is infusing well in RFA. Fall and safety precautions are in place.
[2019-11-21] MEDS: AZITHROMYCIN 500 MG in NS 250 ML IV SCH (23:59)
--- NOTE | 2019-11-22 | NUR ---
Pt is awake and not in any distress. IVF is infusing well in RFA. Call light is with pt and bed alarm is on.
[2019-11-22 00:12] VITALS: BP_SYST 154
--- NOTE | 2019-11-22 02:00 | NUR ---
IVF is infusing well. Pt is sleeping, but easily arousable. Fall and safety precautions are in place.
--- NOTE | 2019-11-22 04:00 | NUR ---
Pt is sleeping without any distress noted. IVF is infusing well in RFA.
[2019-11-22] MEDS: KCL 40mEq in D5/0.45NS 1000 mL 1,000 ML IV SCH ×3 (05:41→23:50)
--- NOTE | 2019-11-22 06:30 | NUR ---
Pt is awake and resting quietly in bed. All pt's needs were attended to. IVF is infusing well in RFA. Fall and safety precautions are in place. Will endorse to day shift nurse.
--- NOTE | 2019-11-22 07:45 | NUR ---
AM rounds: Patient is asleep. IV fluids of D5 1.2 NS + KCL 40 MEQ at 100 cc/hr on the right forearm gauge 22. Bed alarm is ON. Call light within reach.
[2019-11-22 08:47] VITALS: BP_SYST 155
--- NOTE | 2019-11-22 11:30 | NUR ---
Rounds: Patient is calm. Call light within reach.
[2019-11-22 12:30] VITALS: BP_SYST 189
--- NOTE | 2019-11-22 12:43 | NUR ---
CASE MANAGEMENT: CM CONTACTED LENA SALAZAR @ , WHO IS LISTED CHILD. HOWEVER, PER LENA, SHE IS NOT RELATED TO THE PATIENT. SHE IS JUST A CAREGIVER/MILITARY COOK AT [facility] WHERE PATIENT USED TO RESIDE PRIOR TO [facility]. PER LENA, PATIENT DOES NOT HAVE ANY FAMILY/RELATIVES. CM CONTACTED [facility] @ . SPOKE WITH TENZIN (DISH NETWORK INSTALLER) TO CHECK IF PATIENT HAS FAMILY/RELATIVE. PER TENZIN, PATIENT HAS NO FAMILY/NEXT OF KIN. ONLY MANAGEMENT DEVELOPMENT SPECIALIST WAS LENA (MILITARY COOK AT [facility]). CM NOTIFIED [facility] AT [facility]. PATIENT IS UNREPRESENTED. PER [facility], THEY CANNOT ACCEPT PATIENT AT THIS TIME PATIENT HAS NO FAMILY. AND NOT ALERT AND ORIENTED TO MAKE HIS OWN DECISION. JACK MADE DR. GLEASON AWARE. Addendum: 11/22/19 at 1542 by Herminia Early RN SPOKE WITH DR. GLEASON REGARDING PATIENT UNREPRESENTED AND [facility] CANNOT ACCEPT PATIENT AT THIS TIME. PER DR. GLEASON, PATIENT IS NOT STABLE TO BE DISCHARGE TO SNF AT THIS TIME. STATED HE WILL BE COMING TO EVALUATE PATIENT AND DECIDE ON DC PLAN.
[2019-11-22 16:44] VITALS: BP_SYST 186
[2019-11-22 17:19] VITALS: BP_SYST 134
--- NOTE | 2019-11-22 17:51 | NUR ---
NO IV ACCESS. IV infiltrated, unable to gain IV access. MD is aware. New order for PICC line.
--- NOTE | 2019-11-22 19:30 | NUR ---
OPENING NOTES Received care of pt and sbar report from daysarft nurse. Patient received lying in bed, appears to be asleep, eyes closed but is easily aroused to speech. No s/s of acute distress noted. Pt has no IV access at this time, plan is for pt to get PICC line this evening. Breathing even and unlabored, HOB raised. Bed alarm on. Three side rails up. Bed locked and at lowest position. Bed alarm is on. Close to nurses station. Will continue to monitor.
--- NOTE | 2019-11-22 21:25 | NUR ---
INCONTINENCE CARE Taylor care rendered by GLOVE TURNER AND FORMER AUTOMATIC and RN. Patient tolerated well. Breathing is unlabored to room air. No s/s of pain or discomfort. All needs met. Bed alarm on. Will continue to monitor.
--- NOTE | 2019-11-22 22:00 | NUR ---
SPOKE TO PICC LINE NURSE PER PICC NURSE, PT NEEDS TO HAVE THE CONSENT SIGNED BY A FAMILY MEMBER OR GUARDIAN.
--- NOTE | 2019-11-22 22:05 | NUR ---
NOTE: ATTEMPTED TO CALL CONTACT LENA SALAZAR (CHILD) AT . PHONE NOT ANSWERED AND ANSWERING MACHINE IS FULL. WILL ATTEMPT TO CALL BACK AT LATER TIME TO OBTAIN CONSENT FOR PICC LINE.
[2019-11-22 23:35] VITALS: BP_SYST 138
--- NOTE | 2019-11-22 23:45 | NUR ---
IV PLACEMENT: # 18 gauge angiocath placed to LEFT FOREARM BY CATHY ORTIZ. Use of asceptic technique. Opsite placed over site. Blood return noted. Flushed with 10 cc of normal saline. No evidence of infiltration noted. Patient tolerated WELL.
[2019-11-22] MEDS: cefTRIAXone 1 GM IVPB PREMIX 50 ML IV SCH (23:50)
--- NOTE | 2019-11-22 23:50 | NUR ---
IVF RESTARTED/ROCEPHIN IVF RESTARTED AND INFUSING AT ORDERED RATE. ROCEPHIN HUNG LATE DUE TO LACK OF IV ACCESS. IV IS PATENT AND INFUSING WELL. NO S/S OF INFILTRATION AT IV SITE. SAFETY MAINTAINED. WILL MONITOR.
--- NOTE | 2019-11-23 02:00 | NUR ---
SLEEPING PT RESTING IN BED WITH EYES CLOSED. VISIBLE SYMMETRICAL RISE AND FALL OF CHEST TO ROOM AIR, NO SOB NOTED. PT APPEARS COMFORTABLE, NO SIGNS OF PAIN OR DISCOMFORT. SAFETY AND FALL PRECAUTIONS ARE IN PLACE. WILL MONITOR.
--- NOTE | 2019-11-23 04:02 | NUR ---
INCONTINENCE CARE Taylor care rendered by FAMILY AND CONSUMER SCIENCES TEACHER and RN. Patient tolerated well. Breathing is unlabored to room air. No s/s of pain or discomfort. All needs met. Bed alarm on. Will continue to monitor.
--- NOTE | 2019-11-23 06:42 | NUR ---
CLOSING NOTE Pt lying in bed, appears to be asleep, eyes closed but is easily aroused to speech. No s/s of acute distress noted. Breathing even and unlabored, HOB raised. Bed alarm on. Three side rails up. Bed locked and at lowest position. Bed alarm is on. Close to nurses station. Will endorse to day shift RN.
[2019-11-23 07:25] VITALS: BP_SYST 133
--- NOTE | 2019-11-23 07:25 | NUR ---
AM ROUNDS: PATIENT SLEEPING DURING ROUNDS. SWOLLEN/REDNESS BILATERAL ARMS . NO IV ACCESS,HARD STICK. NO GUARDIAN AND 2 MD'S TO SIGN CONSENT FOR PICC LINE PLACEMENT FOR EMERGENCY USE.SAFETY MEASURES RENDERED. BED LOCKED AT LOWEST POSITION.BED ALARM ON. CONDITION GUARDED.
--- NOTE | 2019-11-23 09:25 | NUR ---
Iv Notes: Iv re sited at right upper arm using G#22,continue iv fluids as ordered.
--- NOTE | 2019-11-23 11:20 | NUR ---
Rn rounds: Patient relax and calm this time. Not in any respiratory distress.
[2019-11-23 12:37] VITALS: BP_SYST 126
--- NOTE | 2019-11-23 13:15 | NUR ---
Rn Rounds: No acute distress. Continue to monitor.
--- NOTE | 2019-11-23 15:30 | NUR ---
Rn Rounds: Patient sleeping during rounds. Continue to monitor. Safety measures rendered.
[2019-11-23] MEDS: KCL 40mEq in D5/0.45NS 1000 mL 1,000 ML IV SCH (16:39)
[2019-11-23 16:40] VITALS: BP_SYST 145
--- NOTE | 2019-11-23 17:15 | NUR ---
RN ROUNDS: PATIENT RESTING. NO DISTRESS.
--- NOTE | 2019-11-23 18:20 | NUR ---
END OF SHIFT: CALL LIGHT WITH IN REACH. BED LOCKED AT LOWEST POSITION. BED ALARM ON.SAFETY MEASURES RENDERED. IV FLUIDS RUNNING WELL.CONDITION GUARDED.
--- NOTE | 2019-11-23 21:13 | NUR ---
IV REINSERTION IV INFILTRATED, REINSERTED ON THE RIGHT FOREARM G. 22, PATENT, PATIENT TOLERATING WELL. WILL CONTINUE TO MONITOR.
[2019-11-23] MEDS: cefTRIAXone 1 GM IVPB PREMIX 50 ML IV SCH (22:42)
--- NOTE | 2019-11-24 00:14 | NUR ---
PATIENT RESTING: Patient resting quietly. No acute distress noted. Vital signs within normal range.
[2019-11-24 00:18] VITALS: BP_SYST 163
--- NOTE | 2019-11-24 02:15 | NUR ---
ROUNDS PATIENT ASLEEP, RESPIRATIONS EVEN AND UNLABORED, WILL CONTINUE TO MONITOR.
--- NOTE | 2019-11-24 04:13 | NUR ---
PATIENT RESTING: Patient resting quietly. No acute distress noted. Vital signs within normal range.
[2019-11-24] MEDS: KCL 40mEq in D5/0.45NS 1000 mL 1,000 ML IV SCH ×3 (04:24→20:23)
--- NOTE | 2019-11-24 06:52 | NUR ---
CLOSING NOTES PATIENT AWAKE, NO SIGNS OF ANY PAIN AND DISCOMFORT NOTED. ALL NEEDS ATTEDED TO. SAFETY MEASURES MAINTAINED. CALL LIGHT PLACED WITHIN REACH.
--- NOTE | 2019-11-24 07:34 | NUR ---
AM ROUNDS: PATIENT SLEEPING COMFORTABLE ON THE BED. IVF ON GOING AT RIGHT ARM IN PLACE. CALL LIGHT WITH IN REACH. BED LOCKED AT LOWEST POSITION. BED ALARM ON. NO ACUTE DISTRESS.
[2019-11-24 08:15] VITALS: BP_SYST 144
--- NOTE | 2019-11-24 09:25 | NUR ---
RN ROUNDS: PATIENT RESTING DURING ROUNDS. NOT IN ANY RESPIRATORY DISTRESS.
--- NOTE | 2019-11-24 11:30 | NUR ---
Rn Rounds: Patient resting during rounds. Stable. Safety measures rendered.
[2019-11-24 12:50] VITALS: BP_SYST 128
--- NOTE | 2019-11-24 13:00 | NUR ---
Rn Rounds: No acute distress. Continue to monitor.
--- NOTE | 2019-11-24 15:00 | NUR ---
Rn rounds: Awake. No needs this time. No distress.
[2019-11-24 16:52] VITALS: BP_SYST 139
--- NOTE | 2019-11-24 17:00 | NUR ---
RN ROUNDS: RESTING. NO COMPLAINED MADE. SAFETY MEASURES RENDERED. CONTINUE TO MONITOR.
--- NOTE | 2019-11-24 18:22 | NUR ---
CLOSING NOTES: PATIENT RESTING. CALM AND RELAXED. SAFETY MEASURES RENDERED.PRACTICE GUIDELINES MET THROUGH OUT THE SHIFT.
--- NOTE | 2019-11-24 19:05 | NUR ---
OPENING NOTES Bedside report received from dayshift nurse. Patient received lying in bed, turning by himself, appears to be slightly agitated. Breathing is even and unlabored. IVF infusing well, IV site is patent, no signs of infiltration or infection noted. Call light with patient. Bed alarm on. Bed is locked and at lowest position. Will continue to monitor.
[2019-11-24 20:00] VITALS: BP_SYST 135
[2019-11-24] MEDS: cefTRIAXone 1 GM IVPB PREMIX 50 ML IV SCH (20:23)
--- NOTE | 2019-11-24 21:00 | NUR ---
PERICARE Patient cleaned by RN at this time. Patient tolerated well. Bed alarm on. Bed is locked and at lowest position. IVF infusing well. Will continue to monitor.
--- NOTE | 2019-11-24 23:00 | NUR ---
ROUNDS Patient in bed, asleep. No s/s of acute distress noted. Breathing even and unlabored. IVF infusing well. Bed alarm on. Will continue to monitor.
[2019-11-25] VITALS: BP_SYST 132
--- NOTE | 2019-11-25 01:00 | NUR ---
ROUNDS Patient in bed asleep. No signs of discomfort noted. Chest rise and fall even bilaterally. IVF infusing well. All needs met at this time. Bed alarm on. Will continue to monitor.
[2019-11-25] MEDS ORDERED: LEVOFLOXACIN 250 MG/D5W 50 ML IV SCH (02:30)
--- NOTE | 2019-11-25 03:05 | NUR ---
CHANGE START TIME FOR LEVAQUIN Dr. Gates spoke with RN, ordered to start Levaquin in the morning, at 0900. RN will edit order.
--- NOTE | 2019-11-25 05:00 | NUR ---
PERICARE Taylor care rendered by FINANCIAL SALES ASSISTANT and RN. Patient tolerated well. All needs met. Bed alarm on. Will continue to monitor.
[2019-11-25] MEDS ORDERED: LEVOFLOXACIN 250 MG/D5W 50 ML IV ONE (05:09)
--- NOTE | 2019-11-25 06:27 | NUR ---
CLOSING NOTES Patient in bed, sleeping comfortably. No s/s of acute distress noted. Breathing even and unlabored. IVF infusing well, IV site patent, no signs of infiltration or infection noted. HOB raised slightly. All needs met throughout the shift. Fall and safety precautions maintained throughout the shift. Will continue to monitor until patient care is endorsed to oncoming dayshift nurse.
[2019-11-25 07:28] LABS: BASOPHILS # (AUTO) 0.1 K/uL (0.0-0.2); BASOPHILS % (AUTO) 0.5 % (0.0-2.0); EOSINOPHILS # (AUTO) 0.2 K/uL (0.0-0.4); EOSINOPHILS % (AUTO) 1.6 % (0.0-4.0); HEMATOCRIT 43.6 % (36-54); HEMOGLOBIN 14.6 g/dL (14.0-18.0); LYMPHOCYTES # (AUTO) 1.6 K/uL (1.0-5.5); LYMPHOCYTES % (AUTO) 14.9 % (20.5-51.5); MEAN CORPUSCULAR HEMOGLOBIN 30 pg (27-31); MEAN CORPUSCULAR HGB CONC 33 % (32-36); MEAN CORPUSCULAR VOLUME 89 fL (79.0-98.0); MONOCYTES # (AUTO) 0.9 K/uL (0.0-1.0); MONOCYTES % (AUTO) 8.3 % (1.7-9.3); NEUTROPHILS # (AUTO) 8.2 K/uL (1.8-7.7); NEUTROPHILS % (AUTO) 74.7 % (40.0-70.0); PLATELET COUNT (AUTO) 306 K/uL (130-430); RED BLOOD CELL COUNT(AUTO) 4.91 MIL/uL (4.2-6.2); RED CELL DISTRIBUTION WIDTH 13.8 % (9.0-15.0); WHITE BLOOD COUNT (AUTO) 10.9 K/uL (4.8-10.8)
--- NOTE | 2019-11-25 07:30 | NUR ---
Opening Notes Patient received lying in bed, alert, awake, opens his eyes with verbal and tactile stimuli, no moaning or grimacing noted. Respiration even and unlabored. IVF infusing well. Fall precaution observed, bed at lowest position, bed alarm on. Call light within the reach. Will continue to monitor.
--- NOTE | 2019-11-25 07:40 | NUR ---
Dr. Kinney Rounds Seen and examined by MD, with new order to insert NGT and start on Nephro at 10 ml/hr increase by 10 Ml every hour, free water 100 ml every 6 hours, residual check every 6 hours, and hold feeding if residual is more than 100 mL, order read back, verified, noted and carried out.
[2019-11-25 08:10] VITALS: BP_SYST 152
[2019-11-25 08:10] LABS: ALANINE AMINOTRANSFERASE 19 U/L (12-78); ALBUMIN 2.8 g/dL (3.4-4.8); ANION GAP 7 (5-15); ASPARTATE AMINOTRANSFERASE 20 U/L (10-37); CALCIUM 9.2 mg/dL (8.4-11.0); CHLORIDE 105 mmol/L (98-107); CREATININE 1.05 mg/dL (0.55-1.30); GLUCOSE 88 mg/dL (70-99); POTASSIUM 5.2 mmol/L (3.5-5.1); SODIUM SERUM 133 mmol/L (136-145); TOTAL BILIRUBIN 0.8 mg/dL (0.0-1.0); UREA NITROGEN, BLOOD 8 mg/dL (8-21)
--- NOTE | 2019-11-25 09:10 | NUR ---
Dr. Fisher Rounds Seen and examined by MD, will follow-up for any new orders.
[2019-11-25] MEDS: D5/0.45 NS 1,000 ML IV SCH ×2 (09:30→17:00)
[2019-11-25] MEDS: LEVOFLOXACIN 250 MG/D5W 50 ML IV SCH (10:15)
--- NOTE | 2019-11-25 10:30 | NUR ---
NGT inserted NGT inserted, patient well tolerated. Will continue to monitor.
--- NOTE | 2019-11-25 10:35 | NUR ---
NGT removed, called MD for restrain Called and spoke to MD regarding patient removed his NGT and the need for restrain, MD only ordered for mittens for restrain.
--- NOTE | 2019-11-25 11:10 | NUR ---
Patient non-compliant Patient keeps refusing NGT placement and non-compliant, explained risks and benefits but patient was fighting, mittens ineffective.
--- NOTE | 2019-11-25 11:30 | NUR ---
IV line infiltrated Due to patient constantly moving, IV line noted with infiltration, generalized swelling to bilateral arms, patient was a hard stick, attempted to reinsert x 2, called and spoke with MD boggsay to insert midline. Midline nurse made aware.
[2019-11-25 12:41] VITALS: BP_SYST 159
--- NOTE | 2019-11-25 13:30 | NUR ---
RN ROUNDS Patient remain to be alert, awake and verbally responsive, still noted with confusion, denies any pain or discomfort. Respiration even and unlabored. Call light within the reach. Fall precaution observed.
--- NOTE | 2019-11-25 14:00 | NUR ---
Nutrition F/U RD reviewed pt's current EMR including diet Hx, physician notes, nursing notes, pertinent labs/meds/procedures, care trends and care activity. Current Nutrition Support: Nepro at 50ml/hr (goal rate), FWF 100ml Q6H via NGT x 0 days Provides: 2160 kcal, 97 gm protein and 1272ml free water daily. Meets: 116% of upper end of est calorie needs and 109% of upper end of est protein needs. Subjective information: Pt seen in bed, +aphasic, RN at bedside. Per RN report, pt seen by Dr. Kinney and ordered to insert NGT and start feeding. Per bed huddle discussion, pt was supposed to have PEG placement, but pt dies not have a family or conservator. NEW Estimated Energy Expenditure (kcals/day) 2095-3703 kcal/day (30-35 kcal/kg CBW for sepsis) NEW Estimated Protein Required (g/day) 53-80 gm/day (1-1.5 gm/kg IBW for renal Dz predialysis/sepsis) Estimated Fluid Required (l/day) per MD (Renal Dz) Problem/Etiology/Signs/Symptoms Inadequate protein-energy intake r/t current diet order AEB NPO status and ST rec to keep pt on NPO and provide alternative method of feeding pt. (*resolved w/ EN support) Expected Outcomes/Goals Monitor provision of nutrition support w/ goal of pt meeting at least 75% of estimated nutritional needs, labs trending WNL, normal GI function, skin integrity/wt maintenance Dietitian Recommendations *Recommend continuing Nepro at 50ml/hr(goal), FWF 100ml Q6H via NGT Provides: 2160 kcal, 97 gm protein and 1272ml free water daily. Meets: 116% of upper end of est calorie needs and 109% of upper end of est protein needs. Follow Up High Risk: F/U in 2-3days
--- NOTE | 2019-11-25 14:08 | NUR ---
Dietitian Recommendations *Recommend continuing Nepro at 50ml/hr(goal), FWF 100ml Q6H via NGT Provides: 2160 kcal, 97 gm protein and 1272ml free water daily. Meets: 116% of upper end of est calorie needs and 109% of upper end of est protein needs. Please see Nutrition F/U note for details. CHILANGO, RD
--- NOTE | 2019-11-25 15:30 | NUR ---
Midline inserted Midline inserted, patient able to tolerate, good back flow. Call light within the reach. Fall precaution observed. Call light within the reach.
[2019-11-25 16:50] VITALS: BP_SYST 130
--- NOTE | 2019-11-25 17:52 | NUR ---
Called Dr. Edwards Notified MD regarding patient pulling lines, that mittens ineffective, with new order to start patient on bilateral soft wrist restrains, noted and carried out.
--- NOTE | 2019-11-25 18:20 | NUR ---
NGT re-inserted NGT reinserted, awaiting for chest x-ray to confirm NGT placement.
--- NOTE | 2019-11-25 18:50 | NUR ---
Closing Notes Patient remain to be alert, awake and verbally responsive, no moaning or grimacing noted. IVF infusing well via PICC line, bilateral soft wrist restraint in place, good circulation observed. Chest x-ray shows NGT not in proper place, will endorse to the next shift to attempt for NGT insertion. Call light within the reach. Fall precaution observed.
--- NOTE | 2019-11-25 20:00 | NUR ---
RECIEVED REPORT @ START OF SHIFT, PATIENT CONFUSED, ALERT TO NAME , RESPIRATIONS EVEN AND UNLABORED, ROOM AIR, NPO STAUS, HAS NGT IN PLACE BUT NEEDS TO BE RE-INSERTED DUE TO CURLING IN STOMACH, HOB ELEVATED SOFT WRIST RESTRAINTS IN PLACE, INCONTIENT OF URINE, KEPT CLEAN AND DRY,HAS MULTIPLE DISCOLORATIONS TO BILATERAL UPPER EXTREMITIES, PICC LINE PATENT AND INTACT DOUBLE LEUMEN TO ONUR INFUSING D51/2NS @75 ML/HR, SCD'S IN PLACE TO BILATERAL LOWER EXTREMITIES.RESTING QUIETLY IN BED WITH EYES CLOSED, WILL CONTINUE TO MONITOR.
[2019-11-25 22:23] VITALS: BP_SYST 140
[2019-11-26 00:11] VITALS: BP_SYST 130
--- NOTE | 2019-11-26 01:00 | NUR ---
NGT RE-INSERTED IN RIGHT NOSTRIL, X-RAY TAKEN AND TUBE NEEDS TO BE ADVANCED 15 CM, DONE XRAY TO BE DONE AGAIN FOR FOR PROPER PLACEMENT. WILL CONTINUE TO MONITOR.
[2019-11-26 04:00] VITALS: BP_SYST 132
--- NOTE | 2019-11-26 05:09 | NUR ---
SEVERAL ATTEMPTS MADE TO REINSERT AND ADVANCE NGT UNSUCESSFUL TIMES 3, WILL ALLOW PATIENT TO REST AND ENDORSE TO DAY STAFF TO REINSERT NGT., XRAYS TAKEN TIMES 3 ALSO.
[2019-11-26 06:40] LABS: ANION GAP 9 (5-15); CALCIUM 9.1 mg/dL (8.4-11.0); CHLORIDE 105 mmol/L (98-107); CREATININE 1.22 mg/dL (0.55-1.30); GLUCOSE 94 mg/dL (70-99); POTASSIUM 4.8 mmol/L (3.5-5.1); SODIUM SERUM 136 mmol/L (136-145); UREA NITROGEN, BLOOD 12 mg/dL (8-21)
[2019-11-26 07:17] LABS: BASOPHILS # (AUTO) 0.1 K/uL (0.0-0.2); BASOPHILS % (AUTO) 0.7 % (0.0-2.0); EOSINOPHILS # (AUTO) 0.1 K/uL (0.0-0.4); HEMATOCRIT 40.7 % (36-54); HEMOGLOBIN 13.6 g/dL (14.0-18.0); LYMPHOCYTES # (AUTO) 1.6 K/uL (1.0-5.5); LYMPHOCYTES % (AUTO) 13.5 % (20.5-51.5); MEAN CORPUSCULAR HEMOGLOBIN 30 pg (27-31); MEAN CORPUSCULAR HGB CONC 34 % (32-36); MEAN CORPUSCULAR VOLUME 89 fL (79.0-98.0); MONOCYTES # (AUTO) 1.1 K/uL (0.0-1.0); MONOCYTES % (AUTO) 9.5 % (1.7-9.3); NEUTROPHILS # (AUTO) 8.8 K/uL (1.8-7.7); NEUTROPHILS % (AUTO) 75.3 % (40.0-70.0); PLATELET COUNT (AUTO) 303 K/uL (130-430); RED BLOOD CELL COUNT(AUTO) 4.57 MIL/uL (4.2-6.2); RED CELL DISTRIBUTION WIDTH 13.9 % (9.0-15.0); WHITE BLOOD COUNT (AUTO) 11.7 K/uL (4.8-10.8)
--- NOTE | 2019-11-26 07:30 | NUR ---
Opening Notes Patient received lying comfortably in bed, bilateral sort wrist restraints in place, good circulation noted, alert, awake and verbally responsive, no moaning or grimacing noted. IVF infusing well via midline. Respiration even and unlabored. Fall precaution observed. Bed alarm on, bed at lowest position. Call light within the reach. Will continue to monitor.
[2019-11-26] MEDS: LEVOFLOXACIN 250 MG/D5W 50 ML IV SCH (08:22)
[2019-11-26 08:26] VITALS: BP_SYST 135
--- NOTE | 2019-11-26 09:45 | NUR ---
Dr. Duncan Pageomer re: unsuccessful NGt placement Paged MD regarding unsuccessful NGT placement, awaiting for call back.
--- NOTE | 2019-11-26 11:00 | NUR ---
No call back from Dr. Duncan re-paged to notify regarding unsuccessful NGt placement, awaiting for call back.
--- NOTE | 2019-11-26 11:24 | NUR ---
Dr. Edwards made aware of unsuccessful NGT insertion Called and spoke with MD regardijng unsuccessful NGT insertion, per MD refer to GI regarding it but start patient on TPN for pharmacy to dose, telephone order read back, verified, noted and carried out. Pharmacy notified.
[2019-11-26] MEDS: D5/0.45 NS 1,000 ML IV SCH ×2 (11:34→22:13)
[2019-11-26 12:07] LABS: PHOSPHORUS 3.5 mg/dL (2.7-4.5)
[2019-11-26 12:23] VITALS: BP_SYST 107
[2019-11-26] MEDS ORDERED: DEXTROSE 50% JECT 50 ML DISP.SYRIN IVP PRN (12:45)
--- NOTE | 2019-11-26 13:30 | NUR ---
RN ROUNDS Patient resting well, alert, awake and verbally responsive, denies any pain or discomfort at this time. IVF infusing well. Call light within the reach.
--- NOTE | 2019-11-26 15:15 | NUR ---
RN ROUNDS Patient remain to be alert, awake and verbally responsive, denies any pain or discomfort. Fall precaution observed, bed alarm on, bed at lowest position. Call light within the reach.
[2019-11-26 16:30] VITALS: BP_SYST 147
--- NOTE | 2019-11-26 17:30 | NUR ---
RN ROUNDS Patient remain to be alert, awake and verbally responsive, denies any pain or discomfort at this time. Call light within the reach.
--- NOTE | 2019-11-26 19:40 | NUR ---
RN ROUNDS Patient remain to be alert, awake and verbally responsive, denies any pain or discomfort at this time. Respiration even and unlabored. Midline in place and intact, IVF infusing well. Fall precaution observed, bed alarm on, bed at lowest position. Call light within the reach.
[2019-11-26 20:00] VITALS: BP_SYST 157
[2019-11-26] MEDS ORDERED: TPN PERIPHERAL IV SCH ×7 (21:00)
[2019-11-26] MEDS ORDERED: [UNRECOGNIZED DRUG - OTHER] IV SCH ×7 (21:00)
[2019-11-26] MEDS ORDERED: MAGNESIUM SULFATE IV SCH ×7 (21:00)
[2019-11-26] MEDS ORDERED: SODIUM ACETATE IV SCH ×7 (21:00)
[2019-11-26] MEDS ORDERED: *TPN PER PHARMACY XX ONE (21:00)
[2019-11-26] MEDS ORDERED: MVI IV SCH ×7 (21:00)
--- NOTE | 2019-11-26 21:50 | NUR ---
PPN started Patient started on parenteral nutrition, well tolerated, running well. Denies any pain or discomfort at this time. No moaning or grimacing noted. Fall precaution observed, bed alarm on, bed at lowest position. Call light within the reach.
--- NOTE | 2019-11-26 23:57 | NUR ---
RN ROUNDs Patient remain to be alert, awake and verbally responsive, denies any pain or discomfort at this time. IVF and TPN running well. Fall precaution observed, bed alarm on, bed at lowest position. Call light within the reach.
[2019-11-27 00:40] VITALS: BP_SYST 88
--- NOTE | 2019-11-27 01:30 | NUR ---
Midline dressing change Midline dressing changed, well tolerated, good flushing and blood back flow, denies any pain or discomfort at this time. Call light within the reach.
--- NOTE | 2019-11-27 03:20 | NUR ---
CONTINUATION OF CARE PATIENT APPEARS TO BE RESTING BREATHING IS EQUAL AND NON LABORED. NO SIGNS OF ANY DISTRESS. PATIENT HAS ALL SAFETY PRECAUTIONS IN PLACE. PATIENT IS CLOSE TO NURSES STATION.
--- NOTE | 2019-11-27 03:20 | NUR ---
Transfer of care SBAR report given to CATHY Black at bedside, patient eyes closed,visible rise and fall of chest noted, no moaning or grimacing noted, PPn and IVF infusing well through midline, well tolerated. Call light within the reach. Bed alarm on , bed at lowest position.
--- NOTE | 2019-11-27 05:50 | NUR ---
Accu check/ incontinence patients accu check done, no coverage needed. patient is awake and alert but confused. patient was trying to get out of bed, due to soilage, patient provided with incontinence care. patient has all safety precautions. patient is close to nurses station. patient has no other needs at this time. will continue to monitor.
[2019-11-27] MEDS ORDERED: *TPN PER PHARMACY XX SCH (07:30)
--- NOTE | 2019-11-27 07:40 | NUR ---
midline removed/dr. mcadams patient pulled out his midline, pressure and gauze applied to site, bleeding seems to be controlled. place gauze with tape at insertion site. md called to inform patient pulled out midline. ok to place midline back, and place in restraints once midline is placed back in. patient made aware but patient is confused. patient has all safety precautions in place.
[2019-11-27 08:00] VITALS: BP_SYST 154
[2019-11-27 09:14] LABS: ALANINE AMINOTRANSFERASE 16 U/L (12-78); ALBUMIN 2.5 g/dL (3.4-4.8); ANION GAP 10 (5-15); ASPARTATE AMINOTRANSFERASE 20 U/L (10-37); CALCIUM 8.4 mg/dL (8.4-11.0); CHLORIDE 106 mmol/L (98-107); CREATININE 1.22 mg/dL (0.55-1.30); GLUCOSE 84 mg/dL (70-99); PHOSPHORUS 2.9 mg/dL (2.7-4.5); SODIUM SERUM 137 mmol/L (136-145); TOTAL BILIRUBIN 1.1 mg/dL (0.0-1.0); UREA NITROGEN, BLOOD 12 mg/dL (8-21)
--- NOTE | 2019-11-27 09:45 | NUR ---
IV SITE NEW IV SITE OBTAINED WHILE WAITING FOR MIDLINE.IV SITE RIGHT FA 20G, GOOD BLOOD RETURN FLUSHING WELL. PATIENT IS TRYING TO PULL OUT LINE. PER MD OK TO PLACE PATIENT IS WRIST RESTRAINTS. PATIENT IV ANABIOTICS GIVEN ORDERED. PATIENT IS CLOSE TO NURSES STATION. PATIENT HAS ALL SAFETY PRECAUTIONS IN PLACE. CALL LIGHT IS WITH HIM. ALL OTHER NEEDS ARE MET. PATIENT IS CLOSE TO NURSES STATION. WILL CONTINUE TO MONITOR.
[2019-11-27] MEDS: LEVOFLOXACIN 250 MG/D5W 50 ML IV SCH (10:05)
[2019-11-27] MEDS: FAT EMULSIONS 250 ML IV SCH (10:07)
--- NOTE | 2019-11-27 11:55 | NUR ---
accu check patients Accu check done. no coverage needed. tpn and lipids running. patient is trying to kick nurse, even with bilateral wrist restraints. patient has all safety precautions in place. patient is close to nurses station. patient has no complaints at this time. will continue to monitor.
[2019-11-27 12:00] VITALS: BP_SYST 147
--- NOTE | 2019-11-27 13:00 | NUR ---
rn rounding patient is awake and alert laying in bed, no signs of any distress, breathing is equal and no labored. patient has all safety precautions in place. call light with in reach. patient is close to nurses station. picc line nurse states he needs consent from md for new mid line placement. no doctor has come by today. no other needs at this time.
[2019-11-27] MEDS: D5/0.45 NS 1,000 ML IV SCH (14:41)
--- NOTE | 2019-11-27 15:28 | NUR ---
transfer of care report endorsed by leticia rosenberg. patient is appears to be resting both eyes closed no signs of any distress, breathing is equal and non labored. patient has all safety precautions in place. all needs met at this time. patient is close to nurses station.
--- NOTE | 2019-11-27 15:40 | NUR ---
ASSUMED CARE OF PT Received report from Liz MORGAN. Received pt AAOx1, pt restless, pulling at restraints. No s/s resp distress, no s/s pain or discomfort. Aspiration, skin and safety precautions remain in place.
[2019-11-27 16:58] VITALS: BP_SYST 151
--- NOTE | 2019-11-27 18:23 | NUR ---
CLOSING NOTE Pt remains restless, pulling at restraints, attempts to kick out at staff when turning pt. No s/s resp distress, no s/s pain or discomfort. TPN and Lipids infusing well to RFA at ordered rate with no s/s infiltration to site. Aspiration, skin and safety precautions remain in place.
--- NOTE | 2019-11-27 19:35 | NUR ---
ROUNDS PATIENT RESTING COMFORTABLY IN BED, NOT IN DISTRESS, VITALS STABLE. NO SIGNS OF ANY PAIN AND DISCOMFORT NOTED. ASSESSMENT DONE AND DOCUEMNTED. SEE FLOWSHEET. ON BILATERAL SOFT WRISTS RESTRAINTS, PULSES PALPABLE AND WITH GOOD CIRCULATION. NEEDS ATTENDED TO. BED IN LOW AND LOCKED POSITION. WILL CONTINUE TO MONITOR.
--- NOTE | 2019-11-27 21:15 | NUR ---
TPN DUE TPN STARTED SCHEDULED, INFUSING WELL AT ORDERED RATE. WILL CONTINUE TO MONITOR.
[2019-11-27] MEDS: [UNRECOGNIZED DRUG - OTHER] IV SCH ×10 (21:32)
[2019-11-27] MEDS: SODIUM ACETATE IV SCH ×10 (21:32)
[2019-11-27] MEDS: TPN PERIPHERAL IV SCH ×10 (21:32)
[2019-11-27] MEDS: MAGNESIUM SULFATE IV SCH ×10 (21:32)
[2019-11-27] MEDS: MVI IV SCH ×10 (21:32)
[2019-11-28] VITALS: BP_SYST 158
--- NOTE | 2019-11-28 00:15 | NUR ---
PATIENT RESTING: Patient resting quietly. No acute distress noted. Vital signs within normal range.
--- NOTE | 2019-11-28 02:13 | NUR ---
ROUNDS PATIENT ASLEEP, RESPIRATIONS EVEN AND UNLABORED, WILL CONTINUE TO MONITOR.
--- NOTE | 2019-11-28 04:12 | NUR ---
PATIENT RESTING: Patient resting quietly. No acute distress noted. Vital signs within normal range.
--- NOTE | 2019-11-28 06:25 | NUR ---
CLOSING NOTES PATIENT AWAKE, VITALS STABLE, NO PAIN NOTED AT THIS TIME. ALL NEEDS ATTENDED TO. SAFETY MEASURES MAINTAINED. BED IN LOW AND LOCKED POSITION. CALL LIGHT PLACED WITHIN REACH.
[2019-11-28 06:56] LABS: ALANINE AMINOTRANSFERASE 17 U/L (12-78); ALBUMIN 2.4 g/dL (3.4-4.8); ANION GAP 9 (5-15); ASPARTATE AMINOTRANSFERASE 22 U/L (10-37); CALCIUM 8.2 mg/dL (8.4-11.0); CHLORIDE 104 mmol/L (98-107); CREATININE 1.07 mg/dL (0.55-1.30); GLUCOSE 106 mg/dL (70-99); PHOSPHORUS 2.5 mg/dL (2.7-4.5); POTASSIUM 3.3 mmol/L (3.5-5.1); SODIUM SERUM 135 mmol/L (136-145); TOTAL BILIRUBIN 0.7 mg/dL (0.0-1.0); UREA NITROGEN, BLOOD 17 mg/dL (8-21)
[2019-11-28] MEDS: D5/0.45 NS 1,000 ML IV SCH ×2 (07:30→17:25)
--- NOTE | 2019-11-28 07:30 | NUR ---
Opening note patient resting in bed at this time, A/Ox1, no SOB. No complaints of pain. IV patent, intact, and infusing PPN as ordered. No adverse side effects noted. No infiltration noted. On bilateral wrist restraints. patient attempting to removed IV dressing. restraints reinforced. On safety and aspiration precautions, HOB kept elevated, 3 side rails up, bed alarm on, call light within reach. patient in stable condition. Will continue to monitor.
[2019-11-28 08:00] VITALS: BP_SYST 157
[2019-11-28] MEDS: FAT EMULSIONS 250 ML IV SCH (08:12)
[2019-11-28] MEDS: LEVOFLOXACIN 250 MG/D5W 50 ML IV SCH (08:22)
--- NOTE | 2019-11-28 09:00 | NUR ---
medications All morning medications given as ordered. No adverse side effects noted. no nausea, no vomiting noted.
--- NOTE | 2019-11-28 11:04 | NUR ---
rounds patient resting in bed at this time. no complaints of pain. removed restraints, patient noted to be reaching for his IV. restraints reinforced. patient in stable condition.
[2019-11-28 12:53] VITALS: BP_SYST 133
--- NOTE | 2019-11-28 13:00 | NUR ---
rounds Patient resting in bed at this time, no complaints of pain. Skin care provided. linens changed. No other needs at this time.
--- NOTE | 2019-11-28 15:30 | NUR ---
Rounds patient resting in bed at this time, no complaints of pain. restraints in place. skin care provided. no other needs at this time.
[2019-11-28 16:41] VITALS: BP_SYST 141
--- NOTE | 2019-11-28 17:10 | NUR ---
Rounds patient resting in bed at this time, no complaints of pain. Oral care provided. skin care provided. No other needs at this time.
--- NOTE | 2019-11-28 18:51 | NUR ---
closing note patient resting in bed at this time, A/Ox1, no SOB. No complaints of pain. IV patent, intact, and infusing PPN as ordered. No adverse side effects noted. No infiltration noted. On bilateral wrist restraints. patient attempting to removed IV dressing. restraints reinforced. On safety and aspiration precautions, HOB kept elevated, 3 side rails up, bed alarm on, call light within reach. patient in stable condition. all needs met.
--- NOTE | 2019-11-28 19:40 | NUR ---
ROUNDS PATIENT RESTING COMFORTABLY IN BED, VITALS STABLE, NO SIGNS OF ANY PAIN AND DISCOMFORT NOTED. ON BILATERAL SOFT WRISTS RESTRAINT, PATIENT REMOVING IV LINES. NEEDS ATTENDED TO. SAFETY AND FALL MEASURES IN PLACED. BED IN LOW AND LOCKED POSITION. WILL CONTINUE TO MONITOR.
[2019-11-28] MEDS: MVI IV SCH ×10 (20:49)
[2019-11-28] MEDS: [UNRECOGNIZED DRUG - OTHER] IV SCH ×10 (20:49)
[2019-11-28] MEDS: SODIUM ACETATE IV SCH ×10 (20:49)
[2019-11-28] MEDS: MAGNESIUM SULFATE IV SCH ×10 (20:49)
[2019-11-28] MEDS: TPN PERIPHERAL IV SCH ×10 (20:49)
[2019-11-28] MEDS ORDERED: D5/0.45 NS 1,000 ML IV SCH (21:00)
[2019-11-28] MEDS ORDERED: [UNRECOGNIZED DRUG - OTHER] IV SCH ×10 (21:00)
[2019-11-28] MEDS ORDERED: MAGNESIUM SULFATE IV SCH ×10 (21:00)
[2019-11-28] MEDS ORDERED: TPN PERIPHERAL IV SCH ×10 (21:00)
[2019-11-28] MEDS ORDERED: MVI IV SCH ×10 (21:00)
[2019-11-28] MEDS ORDERED: SODIUM ACETATE IV SCH ×10 (21:00)
--- NOTE | 2019-11-28 21:14 | NUR ---
PICC LINE NURSE PICC LINE NURSE JUAN CALLED, ASKING IF CONSENT FOR MIDLINE ORDER IS SIGNED. SAID THAT THE DOCTOR HAS TO PUT ADDITIONAL NOTES THAT IT IS MEDICALLY NECESSARY IF THERE IS NO FAMILY TO GIVE CONSENT TO THE PROCEDURE. WILL ENDORSE TO A.M. SHIFT NURSE.
--- NOTE | 2019-11-29 00:12 | NUR ---
PATIENT RESTING: Patient resting quietly. No acute distress noted. Vital signs within normal range.
[2019-11-29 01:28] VITALS: BP_SYST 159
--- NOTE | 2019-11-29 02:13 | NUR ---
ROUNDS PATIENT ASLEEP, RESPIRATIONS EVEN AND UNLABORED, WILL CONTINUE TO MONITOR.
--- NOTE | 2019-11-29 04:17 | NUR ---
PATIENT RESTING: Patient resting quietly. No acute distress noted. Vital signs within normal range.
--- NOTE | 2019-11-29 06:19 | NUR ---
CLOSING NOTES PATIENT AWAKE, NOT IN DISTRESS, VITALS STABLE, NO SIGNS OF ANY PAIN AND DISCOMFORT NOTED. ALL NEEDS ATTENDED TO. BILATERAL SOFT RESTRAINTS ON, PULSES PALPABLE. WILL CONTINUE TO MONITOR.
[2019-11-29 06:35] LABS: ALANINE AMINOTRANSFERASE 17 U/L (12-78); ALBUMIN 2.1 g/dL (3.4-4.8); ANION GAP 9 (5-15); ASPARTATE AMINOTRANSFERASE 22 U/L (10-37); CALCIUM 7.6 mg/dL (8.4-11.0); CHLORIDE 104 mmol/L (98-107); CREATININE 0.89 mg/dL (0.55-1.30); GLUCOSE 95 mg/dL (70-99); PHOSPHORUS 2.7 mg/dL (2.7-4.5); SODIUM SERUM 136 mmol/L (136-145); TOTAL BILIRUBIN 0.7 mg/dL (0.0-1.0); UREA NITROGEN, BLOOD 19 mg/dL (8-21)
[2019-11-29 08:00] VITALS: BP_SYST 136
[2019-11-29] MEDS: LEVOFLOXACIN 250 MG/D5W 50 ML IV SCH (08:04)
--- NOTE | 2019-11-29 08:10 | NUR ---
medications All morning medications given as ordered. No nausea, no vomiting noted.
--- NOTE | 2019-11-29 10:11 | NUR ---
skin care patient noted with episode of incontinence of urine. skin care provided. linens changed. no other needs at this time.
--- NOTE | 2019-11-29 11:23 | NUR ---
rounds patient resting in bed at this time, no complaints of pain. Iv patent, intact, and infusing PPN as ordered. paged MD regarding clarification of orders. No other needs at this time.
[2019-11-29 12:25] VITALS: BP_SYST 142
--- NOTE | 2019-11-29 12:42 | NUR ---
rounds patient resting in be at this time. Patient is NPO. patient on restraints. Paged Dr. Edwards regarding midline placement and NGT feeding.
--- NOTE | 2019-11-29 14:30 | NUR ---
midline Consent for midline signed by Dr. Edwards. Progress note states patient critically needs the midline for TPN. Ed PICC line nurse stated midline cannot be done if notes do not state medical necessity. Spoke with Dr. Jerry MD wants to speak to Midline nurse. Provided Ed [phone], the phone number of Dr. Edwards to explain what is needed. ed stated he will call Dr. Edwards.
--- NOTE | 2019-11-29 16:30 | NUR ---
Rounds patient resting in bed at this time, no complaints of pain. Skin care provided. Linens changed. No other needs at this time.
[2019-11-29 16:55] VITALS: BP_SYST 130
[2019-11-29] MEDS: POTASSIUM CHLORIDE 10 MEQ in 0.45% NACL 1,000 ML IV SCH (17:20)
--- NOTE | 2019-11-29 17:43 | NUR ---
Nutrition F/U RD reviewed pt's current EMR including diet Hx, physician notes, nursing notes, pertinent labs/meds/procedures, care trends and care activity. Current Nutrition Support: Nepro at 50ml/hr (goal rate), FWF 100ml Q6H via NGT x4 days -- NOT INFUSING D/T NO NGT AVAILABLE Provides: 2160 kcal/day, 97 gm protein/day, and 1272 ml free water/day Meets: 116% of upper end of estimated caloric needs and 109% of upper end of estimated protein needs -AND- PPN D20%, AA8.5% at 65 ml/hr, IL20% at 10 ml/hr via peripheral line Provides: 1275 kcal/day, 66 gm protein/day, 1800 ml total volume/day, and GIR: 2 gm CHO/kg/min Meets: 82% of lower end of estimated caloric needs and 83% of upper end of estimated protein needs. Subjective information: Pt seen in bed, +aphasic, w/ PPN infusing as per physician/pharmacy order. Per physician notes, EGD and GT consent needed but unclear as to who is making decisions. Per EMR records, plans for possible midline and NGT placement pending. Estimated Energy Expenditure (kcals/day) 9198-3857 kcal/day (30-35 kcal/kg CBW for sepsis) Estimated Protein Required (g/day) 53-80 gm/day (1-1.5 gm/kg IBW for renal Dz predialysis/sepsis) Estimated Fluid Required (l/day) per MD (Renal Dz) Problem/Etiology/Signs/Symptoms Inadequate protein-energy intake r/t current diet order AEB NPO status and ST rec to keep pt on NPO and provide alternative method of feeding pt. *ongoing -- though partially met w/ PPN support Expected Outcomes/Goals Monitor provision of nutrition support w/ goal of pt meeting at least 75% of estimated nutritional needs, labs trending WNL, normal GI function, skin integrity/wt maintenance Dietitian Recommendations * Recommend D/C EN support order until NGT becomes available * Recommend continuing PPN D20%, AA8.5% at 65 ml/hr, IL20% at 10 ml/hr via peripheral line Provides: 1275 kcal/day, 66 gm protein/day, 1800 ml total volume/day, and GIR: 2 gm CHO/kg/min Meets: 82% of lower end of estimated caloric needs and 83% of upper end of estimated protein needs Follow Up High Risk: F/U in 2-3 days
--- NOTE | 2019-11-29 17:49 | NUR ---
Dietitian Recommendations * Recommend D/C EN support order until NGT becomes available * Recommend continuing PPN D20%, AA8.5% at 65 ml/hr, IL20% at 10 ml/hr via peripheral line Provides: 1275 kcal/day, 66 gm protein/day, 1800 ml total volume/day, and GIR: 2 gm CHO/kg/min Meets: 82% of lower end of estimated caloric needs and 83% of upper end of estimated protein needs LP, RD Please refer to Nutrition F/U for details.
--- NOTE | 2019-11-29 19:35 | NUR ---
MIDLINE COMMUNICATION WITH DR. GLEASON PICC LINE NURSE JUAN IS COMMUNICATING WITH DR. GLEASON, DR. GLEASON IS GIVING CONSENT PATIENT'S DOCTOR WELL HIS GUARDIAN. DR. GLEASON HAS ALSO CONFIRMED CONSENT OVER THE PHONE WITH ME, THE PATIENT'S RN DIXIE. PICC LINE NURSE JAUN WILL PROCEED WITH PROCEDURE AT THIS TIME.
[2019-11-29] MEDS ORDERED: LORazepam 2 MG/ML VIAL IVP PRN (19:45)
--- NOTE | 2019-11-29 19:50 | NUR ---
MIDLINE INSERTION MIDLINE PLACED ON PATIENT'S LEFT UPPER ARM BY PICC LINE NURSE JUAN AT THIS TIME PER PROTOCOL. PATIENT TOLERATED WELL. PICC LINE IS INTACT AND SECURED AT THIS TIME.
[2019-11-29 20:00] VITALS: BP_SYST 158
--- NOTE | 2019-11-29 20:00 | NUR ---
INITIAL NOTE AT INITIAL ASSESSMENT, PATIENT IS RESTING IN BED, STABLE, NO SIGNS OF RESPIRATORY DISTRESS. PATIENT SHOWS NO PAIN PER FLACC SCALE USED. PLAN OF CARE FOR THE NIGHT IS DISCUSSED WITH THE PATIENT AT THIS TIME. PATIENT IS UNSUCCESSFUL IN DEMONSTRATION OF CALL LIGHT USAGE DUE TO COGNITIVE IMPAIRMENT. ROUNDING WILL BE COMPLETED AT LEAST [id number] THROUGHOUT THE SHIFT. BED IS LOCKED, ALARMED, AND AT THE LOWEST LEVEL. FALL, SAFETY, RESPIRATORY, AND RESTRAINT PRECAUTIONS WILL BE IN PLACE THROUGHOUT THE SHIFT. RESTRAINT ASSESSMENTS WILL BE COMPLETED AT LEAST [id number] THROUGHOUT THE SHIFT.
--- NOTE | 2019-11-29 20:30 | NUR ---
DR. GLEASON ROUNDS DR. GLEASON IS AT PATIENT'S BEDSIDE AT THIS TIME MAKING ROUNDS, NEW ORDERS GIVEN. ORDERS READ BACK, VERIFIED, AND ENTERED.
[2019-11-29] MEDS ORDERED: [UNRECOGNIZED DRUG - OTHER] IV SCH ×11 (21:00)
[2019-11-29] MEDS ORDERED: SODIUM ACETATE IV SCH ×11 (21:00)
[2019-11-29] MEDS ORDERED: TPN PERIPHERAL IV SCH ×11 (21:00)
[2019-11-29] MEDS ORDERED: SODIUM CHLORIDE IV SCH ×11 (21:00)
[2019-11-29] MEDS: FAT EMULSIONS 250 ML IV SCH (21:50)
--- NOTE | 2019-11-29 22:00 | NUR ---
NOTE PATIENT IS RESTING IN BED, STABLE, NO SIGNS OF RESPIRATORY DISTRESS. CALL LIGHT IS WITHIN REACH. BED IS LOCKED, ALARMED, AND AT THE LOWEST LEVEL.
--- NOTE | 2019-11-29 23:50 | NUR ---
NOTE PATIENT IS RESTING IN BED, STABLE, NO SIGNS OF RESPIRATORY DISTRESS. BED IS LOCKED, ALARMED, AND AT THE LOWEST LEVEL.
[2019-11-30] VITALS: BP_SYST 140
--- NOTE | 2019-11-30 01:50 | NUR ---
NOTE PATIENT IS SLEEPING, STABLE, NO SIGNS OF RESPIRATORY DISTRESS. BED IS LOCKED, ALARMED, AND AT THE LOWEST LEVEL.
--- NOTE | 2019-11-30 03:50 | NUR ---
NOTE PATIENT IS SLEEPING, STABLE, NO SIGNS OF RESPIRATORY DISTRESS. BED IS LOCKED, ALARMED, AND AT THE LOWEST LEVEL.
--- NOTE | 2019-11-30 05:20 | NUR ---
HYGIENE CARE HYGIENE CARE PROVIDED AT THIS TIME, PATIENT TOLERATED WELL. FRESH LINENS PROVIDED. PATIENT REPOSITIONED FOR COMFORT, STABLE, NO SIGNS OF RESPIRATORY DISTRESS. BED IS LOCKED, ALARMED, AND AT THE LOWEST LEVEL.
--- NOTE | 2019-11-30 06:58 | NUR ---
CLOSING NOTE PATIENT SLEPT WELL THROUGHOUT THE SHIFT. AT THIS TIME, PATIENT IS RESTING IN BED, STABLE, NO SIGNS OF RESPIRATORY DISTRESS. BED IS LOCKED, ALARMED, AND AT THE LOWEST LEVEL. FALL, SAFETY, ASPIRATION, AND RESPIRATORY PRECAUTIONS HAVE BEEN IN PLACE THROUGHOUT THE SHIFT.
[2019-11-30 07:03] LABS: BASOPHILS % (AUTO) 0.6 % (0.0-2.0); EOSINOPHILS # (AUTO) 0.1 K/uL (0.0-0.4); HEMATOCRIT 32.5 % (36-54); HEMOGLOBIN 11.3 g/dL (14.0-18.0); LYMPHOCYTES # (AUTO) 1.5 K/uL (1.0-5.5); LYMPHOCYTES % (AUTO) 19.9 % (20.5-51.5); MEAN CORPUSCULAR HEMOGLOBIN 31 pg (27-31); MEAN CORPUSCULAR HGB CONC 35 % (32-36); MEAN CORPUSCULAR VOLUME 88 fL (79.0-98.0); MONOCYTES # (AUTO) 0.7 K/uL (0.0-1.0); MONOCYTES % (AUTO) 9.3 % (1.7-9.3); NEUTROPHILS # (AUTO) 5.1 K/uL (1.8-7.7); NEUTROPHILS % (AUTO) 68.2 % (40.0-70.0); PLATELET COUNT (AUTO) 170 K/uL (130-430); RED BLOOD CELL COUNT(AUTO) 3.67 MIL/uL (4.2-6.2); RED CELL DISTRIBUTION WIDTH 13.9 % (9.0-15.0); WHITE BLOOD COUNT (AUTO) 7.4 K/uL (4.8-10.8)
[2019-11-30 07:16] LABS: ALANINE AMINOTRANSFERASE 12 U/L (12-78); ALBUMIN 2.1 g/dL (3.4-4.8); ANION GAP 6 (5-15); ASPARTATE AMINOTRANSFERASE 19 U/L (10-37); CALCIUM 7.7 mg/dL (8.4-11.0); CHLORIDE 105 mmol/L (98-107); GLUCOSE 97 mg/dL (70-99); PHOSPHORUS 3.3 mg/dL (2.7-4.5); POTASSIUM 3.3 mmol/L (3.5-5.1); SODIUM SERUM 135 mmol/L (136-145); TOTAL BILIRUBIN 0.8 mg/dL (0.0-1.0); UREA NITROGEN, BLOOD 21 mg/dL (8-21)
[2019-11-30 12:00] VITALS: BP_SYST 162
[2019-11-30 16:18] VITALS: BP_SYST 161
[2019-11-30] MEDS: POTASSIUM CHLORIDE 10 MEQ in 0.45% NACL 1,000 ML IV SCH (16:34)
[2019-11-30] MEDS ORDERED: SODIUM ACETATE IV SCH ×11 (21:00)
[2019-11-30] MEDS ORDERED: SODIUM CHLORIDE IV SCH ×11 (21:00)
[2019-11-30] MEDS ORDERED: TPN PERIPHERAL IV SCH ×11 (21:00)
[2019-11-30] MEDS ORDERED: [UNRECOGNIZED DRUG - OTHER] IV SCH ×11 (21:00)
[2019-12-01] MEDS: FAT EMULSIONS 250 ML IV SCH ×2 (00:24→20:08)
[2019-12-01 00:40] VITALS: BP_SYST 142
--- NOTE | 2019-12-01 07:40 | NUR ---
Opening Notes Patient received eyes closed, open eyes for verbal and tactile stimulo, limited verbal response, no moaning or grimacing noted. respiration even and unlabored. IVF and TPN infusingwell. Restraints to bilateral wrist in place, good circulation observed. Call light within the reach. Will continue to monitor.
--- NOTE | 2019-12-01 09:00 | NUR ---
RN ROUNDS Patient arousable to verbal and tactile stimuli. No moaning or grimacing noted. IVF and TPN infusing well. Call light within the reach. restraint in place, good circulation observed.
[2019-12-01 10:59] LABS: ALANINE AMINOTRANSFERASE 28 U/L (12-78); ALBUMIN 2.7 g/dL (3.4-4.8); ANION GAP 6 (5-15); ASPARTATE AMINOTRANSFERASE 16 U/L (10-37); CALCIUM 8.1 mg/dL (8.4-11.0); CHLORIDE 100 mmol/L (98-107); CREATININE 0.59 mg/dL (0.55-1.30); GLUCOSE 122 mg/dL (70-99); PHOSPHORUS 1.8 mg/dL (2.7-4.5); SODIUM SERUM 135 mmol/L (136-145); TRIGLYCERIDES 51 mg/dL (30-150); UREA NITROGEN, BLOOD 6 mg/dL (8-21)
--- NOTE | 2019-12-01 11:30 | NUR ---
RN ROUNDS Patient alert, awake and verbally responsive, denies any pain or discomfort, TPN and IVF infusing well via PICC line, Call light within the reach.
[2019-12-01 12:59] VITALS: BP_SYST 114
[2019-12-01] MEDS ORDERED: K PHOS 15 MM in NS 250 ML IV ONE (13:00)
--- NOTE | 2019-12-01 13:30 | NUR ---
RN ROUNDS Patient asleep, eyes closed, respriation even and unlabored, on restraints, bilateral soft wrist, good circulation observed. Denies any pain or discomfort at this time. Call light within the reach.
--- NOTE | 2019-12-01 15:15 | NUR ---
RN ROUNDS Patient denies any pain or discomfort at this time. TPN and IVF infusing well. Call light within the reach.
[2019-12-01] MEDS: POTASSIUM CHLORIDE 10 MEQ in 0.45% NACL 1,000 ML IV SCH (16:34)
[2019-12-01 16:40] VITALS: BP_SYST 178
--- NOTE | 2019-12-01 17:30 | NUR ---
RN ROUNDS Patient remain to be alert, awake and verbally responsive. No sob, no acute distress, no congestion. Denies any pain or discomfort at this time. Call light within the reach.
[2019-12-01 19:00] VITALS: BP_SYST 143
--- NOTE | 2019-12-01 19:15 | NUR ---
change of shift.pt presents quiescent affect;calm.pt.presents no isolation.pt.presents restraints;wrist;bilateral.intact;inplace. pt.presents midline;lt.bicept.tpn/lipids iv fluids infusing.general status stable.respiratory status stable;unlabored @room air. call light/telephone w/in reach of the pt.
--- NOTE | 2019-12-01 19:17 | NUR ---
Closing Notes patient alert, awake and verbally responsive. Denies any pain or discomfort at this time. IVF and TPN infusing well. Respiration even and unlabored. Restrain in place, good circulation observed. Call light within the reach. SBAR report given to night shift supervisor at bedside.
[2019-12-01 20:00] VITALS: BP_SYST 143
--- NOTE | 2019-12-01 20:00 | NUR ---
pt.assessed.v/s assessed;values w/in normal limits.restraints assessed.inplace.intact.skin/circulation w/in normal limits. lt.bicpet assessed:tpn/lipids,iv fluids infusing.pt.assessed for cleanliness.pt.repositioned.general status stable.respiratory status stable;unlabored @room air.call light/telephone placed w/in reach of the pt.
[2019-12-01] MEDS ORDERED: SODIUM CHLORIDE IV SCH ×11 (21:00)
[2019-12-01] MEDS ORDERED: TPN PERIPHERAL IV SCH ×11 (21:00)
[2019-12-01] MEDS ORDERED: SODIUM ACETATE IV SCH ×11 (21:00)
[2019-12-01] MEDS ORDERED: [UNRECOGNIZED DRUG - OTHER] IV SCH ×11 (21:00)
--- NOTE | 2019-12-01 21:00 | NUR ---
2100pmedications administered.the tpn/lipids are administered;tubing changed.the iv fluids administered via midline:location: lt.bicept.
--- NOTE | 2019-12-01 22:00 | NUR ---
pt.assessed.pt.assessed for cleanliness.pt.repositioned.restraints;wrist;bilateral in place;intact.skin/circulation w/in normal limits. lt.bicept assessed;tpn/lipids iv fluids infusing.general status stable.respiratory status stable;unlabored;o2-sat%=96%. call light/telephone placed w/in reach of the pt.
--- NOTE | 2019-12-02 | NUR ---
pt.assessed.v/s assessed;values w/in normal limits.no c/o pain,nausea.pt.assessed for cleanliness.pt.repositioned.restraints;wrist;bilateral in place.intact;skin/circulation w/in normal limits.lt.bicept assessed; tpn/lipids infusing iv fluids infusing.general status stable.respiratory status stable;unlabored;02-sat%=96%. call light/telephone placed w/in reach of the pt.
[2019-12-02 01:11] VITALS: BP_SYST 114
--- NOTE | 2019-12-02 02:00 | NUR ---
pt.assessed.pt.presents quiescent affect;calm,somnolent.tpn/lipids infusing.awaiting the results of the xray:lt bicpet.to confirm placement of the midline.pt.assessed for cleanliness.pt repositioned.genra status stable.respiratory status stable:o2-sat%=96%.call light/ telephone placed w/in reach of the pt. Addendum: 12/02/19 at 0323 by Joe Galicia RN restraints;wrist bilateral assessed;in place,intact.skin/circulation w/in normal limits.
--- NOTE | 2019-12-02 04:00 | NUR ---
pt.assessed.pt.assessed for cleanliness.pt.repositioned.mid line assessed;tpn/lipids,iv fluids infusing.restraints;wrist;bilateral in place;intact.skin/circulation w/in normal limits.general status stable.respiratory status stable;unlabored.call light/telephone placed w/in reach of the pt.
--- NOTE | 2019-12-02 06:30 | NUR ---
pt.assessed.blood glucose assessed;value;88mg/dl.tpn/lipids,iv fluids infusing. i have changed the midline dsg.restraints assessed;in place;intact. skin/circulation w/in normal limits.call light/telephone placed w/in reach of the pt.
[2019-12-02 06:57] LABS: ALANINE AMINOTRANSFERASE 15 U/L (12-78); ALBUMIN 2.2 g/dL (3.4-4.8); ANION GAP 8 (5-15); ASPARTATE AMINOTRANSFERASE 18 U/L (10-37); CALCIUM 7.9 mg/dL (8.4-11.0); CHLORIDE 105 mmol/L (98-107); CREATININE 0.83 mg/dL (0.55-1.30); GLUCOSE 92 mg/dL (70-99); PHOSPHORUS 3.7 mg/dL (2.7-4.5); POTASSIUM 4.3 mmol/L (3.5-5.1); SODIUM SERUM 136 mmol/L (136-145); TOTAL BILIRUBIN 0.8 mg/dL (0.0-1.0); UREA NITROGEN, BLOOD 24 mg/dL (8-21)
[2019-12-02 08:00] VITALS: BP_SYST 128
--- NOTE | 2019-12-02 08:00 | NUR ---
Note Pt resting in bed with restraints on bilaterally on wrists. Pt has midline in JAMEY infusing IVF's and TPN/Lipids at this time. No SOB/resp distress or pain/discomfort noted at this time. Pt has bilateral SCD's on. No needs noted at this time. Call light within reach.
--- NOTE | 2019-12-02 11:01 | NUR ---
Nutrition F/U RD reviewed pt's current EMR including diet Hx, physician notes, nursing notes, pertinent labs/meds/procedures, care trends and care activity. Current Nutrition Support: NPO x 3 days -AND- PPN D20%, AA8.5% at 65 ml/hr, IL20% at 10 ml/hr via peripheral line Provides: 1275 kcal/day, 66 gm protein/day, 1800 ml total volume/day, and GIR: 2gm CHO/kg/min Meets: 82% of lower end of estimated caloric needs and 83% of upper end of estimated protein needs. Subjective information: Pt seen in bed, sleeping, w/ PPN infusing as per physician/pharmacy order. Per bed huddle discussion, awaiting consent for PEG placement. Bed scale weight 122.1#, may be inaccurate d/t multiple blankets. RD s/w pharmD Bach 0919 re: increase in infusion rate to better meet nutrient needs. Estimated Energy Expenditure (kcals/day) 1900-4077 kcal/day (30-35 kcal/kg CBW for sepsis) Estimated Protein Required (g/day) 53-80 gm/day (1-1.5 gm/kg IBW for renal Dz predialysis/sepsis) Estimated Fluid Required (l/day) per MD (Renal Dz) Problem/Etiology/Signs/Symptoms Inadequate protein-energy intake r/t current diet order AEB NPO status and ST rec to keep pt on NPO and provide alternative method of feeding pt. *ongoing -- though partially met w/ PPN support Expected Outcomes/Goals Monitor TPN tolerance and intake w/ goal of pt meeting at least 75% of estimated nutritional needs, labs trending WNL, normal GI function, skin integrity/wt maintenance Dietitian Recommendations * Recommend PPN D20%, AA8.5% at 85 ml/hr, IL20% at 10 ml/hr via peripheral line Provides: 1522 kcal/day, 87 gm protein/day, 2280 ml total volume/day, and GIR: 2.7 gm CHO/kg/min Meets: 98% of lower end of estimated caloric needs and 109% of upper end of estimated protein needs Follow Up High Risk: F/U in 2-3 days
--- NOTE | 2019-12-02 11:10 | NUR ---
Dietitian Recommendations * Recommend PPN D20%, AA8.5% at 85 ml/hr, IL20% at 10 ml/hr via peripheral line Provides: 1522 kcal/day, 87 gm protein/day, 2280 ml total volume/day, and GIR: 2.7 gm CHO/kg/min Meets: 98% of lower end of estimated caloric needs and 109% of upper end of estimated protein needs Please see nutrition f/u note for details. CHILANGO, TONIO RD s/w pharmD Ti for rec. [id number]
--- NOTE | 2019-12-02 12:00 | NUR ---
Note Pt resting in bed and is near nurses' station for close observation for needs and care. Call light within reach.
[2019-12-02 14:15] VITALS: BP_SYST 126
--- NOTE | 2019-12-02 15:45 | NUR ---
Note Pt resting in bed. No needs noted and call light within reach.
[2019-12-02] MEDS: POTASSIUM CHLORIDE 10 MEQ in 0.45% NACL 1,000 ML IV SCH (16:31)
[2019-12-02 16:55] VITALS: BP_SYST 166
--- NOTE | 2019-12-02 18:50 | NUR ---
Note pt resting in bed with bilateral wrist restraints on. Pt resting in bed with IVF's and TPN/Lipids infusing through left upper arm midline. Pt was checked on q1' and PRN all shift for needs and care. No SOB/resp distress or pain/discomfort noted at this time. Call light within reach.
--- NOTE | 2019-12-02 19:30 | NUR ---
OPENING NOTES Recieved patient resting in bed, IVF with Lipids and TPN running to Left midline, dressings c/d/i. No signs of distress observed. Call light wtihin reach, bed alarm on, bed at lowest position, soft restraints on, Q2H 10 minute releases to be done. Will continue to monitor.
[2019-12-02 20:00] VITALS: BP_SYST 140
[2019-12-02] MEDS: FAT EMULSIONS 250 ML IV SCH (23:14)
[2019-12-02] MEDS: SODIUM CHLORIDE IV SCH ×11 (23:14)
[2019-12-02] MEDS: TPN PERIPHERAL IV SCH ×11 (23:14)
[2019-12-02] MEDS: SODIUM ACETATE IV SCH ×11 (23:14)
[2019-12-02] MEDS: [UNRECOGNIZED DRUG - OTHER] IV SCH ×11 (23:14)
[2019-12-03 02:46] VITALS: BP_SYST 134
[2019-12-03 06:33] LABS: BASOPHILS % (AUTO) 0.6 % (0.0-2.0); EOSINOPHILS # (AUTO) 0.1 K/uL (0.0-0.4); EOSINOPHILS % (AUTO) 1.5 % (0.0-4.0); HEMATOCRIT 31.9 % (36-54); HEMOGLOBIN 10.8 g/dL (14.0-18.0); LYMPHOCYTES # (AUTO) 1.1 K/uL (1.0-5.5); LYMPHOCYTES % (AUTO) 14.2 % (20.5-51.5); MEAN CORPUSCULAR HEMOGLOBIN 30 pg (27-31); MEAN CORPUSCULAR HGB CONC 34 % (32-36); MEAN CORPUSCULAR VOLUME 89 fL (79.0-98.0); MONOCYTES # (AUTO) 0.7 K/uL (0.0-1.0); MONOCYTES % (AUTO) 8.7 % (1.7-9.3); NEUTROPHILS # (AUTO) 5.9 K/uL (1.8-7.7); PLATELET COUNT (AUTO) 158 K/uL (130-430); RED BLOOD CELL COUNT(AUTO) 3.57 MIL/uL (4.2-6.2); RED CELL DISTRIBUTION WIDTH 14.5 % (9.0-15.0); WHITE BLOOD COUNT (AUTO) 7.8 K/uL (4.8-10.8)
[2019-12-03 07:08] LABS: ALANINE AMINOTRANSFERASE 15 U/L (12-78); ALBUMIN 2.1 g/dL (3.4-4.8); ANION GAP 8 (5-15); ASPARTATE AMINOTRANSFERASE 21 U/L (10-37); CALCIUM 7.9 mg/dL (8.4-11.0); CHLORIDE 104 mmol/L (98-107); CREATININE 0.87 mg/dL (0.55-1.30); GLUCOSE 87 mg/dL (70-99); PHOSPHORUS 3.6 mg/dL (2.7-4.5); POTASSIUM 4.1 mmol/L (3.5-5.1); SODIUM SERUM 136 mmol/L (136-145); TOTAL BILIRUBIN 0.8 mg/dL (0.0-1.0); UREA NITROGEN, BLOOD 23 mg/dL (8-21)
--- NOTE | 2019-12-03 07:25 | NUR ---
closing notes patient is resting, no signs of acute respiratory distress observed. iv fluids, tpn, and lipids running, dressings c/d/i. call light within reach, bed alarm on, bed at lowest position. all needs met throughout shift. will endorse care to oncoming shift.
--- NOTE | 2019-12-03 08:00 | NUR ---
ASSUMPTION OF CARE: RECEIVED PT ASLEEP, EASILY AROUSED VIA LIGHT TACTILE STIMULI, DX:INADEQUATE VENTILATION, R/T PNU, SEPSIS, BREATH SOUNDS ARE CLEAR, DIMINISHED, 02 SATURATION=98% ORA, BREATHING UNLABORED, AFEBRILE, NO INDICATION OF PAIN OR DISCOMFORT, IV SITE INTACT, PATENT, NO REDNESS OR SWELLING, PT OBSERVED BY STAFF TRYING TO REMOVE MEDICAL TUBING AND IV, NOW HAS BILATERAL, SOFT WRIST RESTRAINTS IN PLACE, WITH PALPABLE PULSES, GOOD COLOR, WARM DRY TO TOUCH, ROOM CLOSE TO NURSES STATION, CALL LIGHT PLACED WITHIN REACH, WILL CONT' TO MONITOR AND ASSESS.
--- NOTE | 2019-12-03 12:00 | NUR ---
GLUCOSE MONITORING: BLOOD SUGAR LEVEL=71, NO COVERAGE REQUIRED, WILL CONT' TO MONITOR AND ASSESS.
[2019-12-03 13:38] VITALS: BP_SYST 157
--- NOTE | 2019-12-03 15:00 | NUR ---
NURSES NOTES: PT REPOSITIONED FOR COMFORT, PULSES PALPABLE, NO DISTRESS NOTED AT THIS TIME, DENIES HAVING ANY PAIN, CALL LIGHT PLACED WITHIN REACH, INSTRUCTED ON HOW TO USE IT, PT CAN'T VALIDATE OR DEMONSTRATE UNDERSTANDING, WILL CONT' TO MONITOR CLOSELY, WILL CONT' TO ASSESS.
--- NOTE | 2019-12-03 17:00 | NUR ---
GLUCOSE MONITORING: BLOOD SUGAR LEVEL=84, NO COVERAGE REQUIRED, WILL CONT' TO MONITOR AND ASSESS.
[2019-12-03 17:20] VITALS: BP_SYST 179
[2019-12-03] MEDS: POTASSIUM CHLORIDE 10 MEQ in 0.45% NACL 1,000 ML IV SCH (17:58)
--- NOTE | 2019-12-03 19:45 | NUR ---
OPENING NOTES Received patient resting in bed, no signs of acute respiratory distress observed, IVF running, dressings c/d/i. Call light within reach, bed alarm on, bed at lowest position, restraints in place, will check every 2 hours with ten minute releases, Will continue to monitor.
[2019-12-03 20:00] VITALS: BP_SYST 158
[2019-12-03] MEDS: FAT EMULSIONS 250 ML IV SCH (23:06)
[2019-12-03] MEDS: TPN PERIPHERAL IV SCH ×11 (23:08)
[2019-12-03] MEDS: [UNRECOGNIZED DRUG - OTHER] IV SCH ×11 (23:08)
[2019-12-03] MEDS: SODIUM CHLORIDE IV SCH ×11 (23:08)
[2019-12-03] MEDS: SODIUM ACETATE IV SCH ×11 (23:08)
[2019-12-04 02:15] VITALS: BP_SYST 180
--- NOTE | 2019-12-04 06:30 | NUR ---
CLOSING NOTES Patient is resting, IVF and TPN, and lipids running, no signs of acute respiratory distress observed. Restraints in place, Q2H release and assessment provided, Call light wtihin reach, bed alarm on, and bed at lowest position. Will endorse care to oncoming shift.
--- NOTE | 2019-12-04 07:25 | NUR ---
OPENING NOTE Patient resting in the bed. No acute distress. Skin warm and dry to touch. Midline intact to JAMEY, no redness, no swelling, no drainage, covered with clean and dry transparent dressing. On TPN at 85ml/hr, lipid at 10ml/hr, and KCl 10mEq in 1/2NS at 30ml/hr, infusing well. Bilateral soft restraint in placed, able to move fingers and hands without problem. Safety measure maintained. Call light within reached. Bed locked in low position, side rails up, bed alarm on. Will continue to monitor.
[2019-12-04 07:41] LABS: ANION GAP 7 (5-15); CALCIUM 7.7 mg/dL (8.4-11.0); CHLORIDE 104 mmol/L (98-107); GLUCOSE 104 mg/dL (70-99); PHOSPHORUS 3.4 mg/dL (2.7-4.5); POTASSIUM 3.8 mmol/L (3.5-5.1); SODIUM SERUM 133 mmol/L (136-145); UREA NITROGEN, BLOOD 24 mg/dL (8-21)
[2019-12-04 08:00] VITALS: BP_SYST 139
--- NOTE | 2019-12-04 09:30 | NUR ---
ROUND Patient resting in the bed. No acute distress. Midline intact to JAMEY, no redness, no swelling, no drainage, infusing TPN , lipid, and IVF well. Bilateral soft restraint in placed, able to move fingers and hands without problem. Safety measure maintained. Call light within reached. Bed locked in low position, side rails up, bed alarm on. Continue to monitor.
--- NOTE | 2019-12-04 11:37 | NUR ---
BS=77 No insulin coverage needed per sliding scale as ordered. Patient resting in the bed. Midline intact, TPN, lipid, and IVF infusing well. Bilateral soft wrist restraint in placed. Abled to move fingers and hands without problem, pulse present. Safety measure maintained. Call light within reached. Bed locked in low position, side rails up, bed alarm on. Continue to monitor.
[2019-12-04 12:14] VITALS: BP_SYST 142
--- NOTE | 2019-12-04 13:25 | NUR ---
ROUND Patient resting in the bed. No acute distress. Skin warm and dry to touch. Midline intact to JAMEY, on TPN , lipid, and IVF infusing well. Bilateral soft restraint in placed, able to move fingers and hands without problem. Safety measure maintained. Call light within reached. Bed locked in low position, side rails up, bed alarm on. Continue to monitor.
--- NOTE | 2019-12-04 15:35 | NUR ---
ROUND Patient resting in the bed. No acute distress. Skin warm and dry to touch. Midline intact to JAMEY, on TPN , lipid, and IVF infusing well. Bilateral soft restraint in placed, able to move fingers and hands without difficulty, pulse present. Safety measure maintained. Call light within reached. Bed locked in low position, side rails up, bed alarm on. Continue to monitor.
[2019-12-04 16:10] VITALS: BP_SYST 138
--- NOTE | 2019-12-04 17:40 | NUR ---
AMARJIT CORLEY Dr. making rounds. Informed to Dr. Edwards, the patient's both upper extremities swollen. Dr. Edwards with order of US noted and carried out.
[2019-12-04] MEDS: POTASSIUM CHLORIDE 10 MEQ in 0.45% NACL 1,000 ML IV SCH (18:35)
--- NOTE | 2019-12-04 18:55 | NUR ---
CLOSING NOTE Patient resting in the bed. No acute distress. Skin warm and dry to touch. Midline intact to JAMEY, no redness, no swelling, no drainage, covered with clean and dry transparent dressing. On TPN at 85ml/hr, lipid at 10ml/hr, and KCl 10mEq in 1/2NS at 30ml/hr, infusing well. Bilateral soft restraint in placed, able to move fingers and hands without problem, pulse present. All needs met. Safety measure maintained. Call light within reached. Bed locked in low position, side rails up, bed alarm on. Will endorse to night nurse.
--- NOTE | 2019-12-04 19:45 | NUR ---
OPENING NOTE RECEIVED CARE OF PATIENT AND SBAR REPORT. PATIENT IS RESTING IN BED, STABLE, NO SIGNS OF RESPIRATORY DISTRESS. PATIENT SHOWS NO PAIN PER FLACC SCALE USED. PLAN OF CARE FOR THE NIGHT IS DISCUSSED WITH THE PATIENT AT THIS TIME. PATIENT IS UNSUCCESSFUL IN DEMONSTRATION OF CALL LIGHT USAGE DUE TO COGNITIVE IMPAIRMENT. ROUNDING WILL BE COMPLETED AT LEAST [id number] THROUGHOUT THE SHIFT. BED IS LOCKED, ALARMED, AND AT THE LOWEST LEVEL. FALL, SAFETY, RESPIRATORY, AND RESTRAINT PRECAUTIONS WILL BE IN PLACE THROUGHOUT THE SHIFT. RESTRAINT ASSESSMENTS WILL BE COMPLETED AT LEAST [id number] THROUGHOUT THE SHIFT. WILL MONITOR.
[2019-12-04 20:00] VITALS: BP_SYST 140
[2019-12-04] MEDS ORDERED: SODIUM ACETATE IV SCH ×11 (21:00)
[2019-12-04] MEDS ORDERED: SODIUM CHLORIDE IV SCH ×11 (21:00)
[2019-12-04] MEDS ORDERED: [UNRECOGNIZED DRUG - OTHER] IV SCH ×11 (21:00)
[2019-12-04] MEDS ORDERED: TPN PERIPHERAL IV SCH ×11 (21:00)
[2019-12-04] MEDS: FAT EMULSIONS 250 ML IV SCH (22:13)
--- NOTE | 2019-12-04 22:13 | NUR ---
TPN/LIPIDS TPN AND LIPIDS HUNG. VERIFIED BY TWO LICENSED NURSES PER PROTOCOL. INFUSING AT ORDERED RATES. SAFETY MAINTAINED. WILL MONITOR.
--- NOTE | 2019-12-04 23:30 | NUR ---
Assumed nursing care of pt from nurse Chichi.
--- NOTE | 2019-12-04 23:30 | NUR ---
CARE ENDORSED TO CATHY MAN, FOR CONTINUITY OF CARE.
--- NOTE | 2019-12-05 01:17 | NUR ---
Accucheck 99 and no Insulin coverage noted. TPN, Lipids and IVF w/KCL are infusing well in JAMEY. Bilateral soft wrist restraints are on and no circulatory impairment noted. Fall and safety precautions are in place.
[2019-12-05 02:06] VITALS: BP_SYST 122
--- NOTE | 2019-12-05 03:00 | NUR ---
TPN, Lipids and IVF w/ KCL are infusing well via JAMEY Midline. No acute distress noted. Fall and safety precautions are in place.
--- NOTE | 2019-12-05 05:00 | NUR ---
No acute distress noted at this time. TPN, Lipids and IVF w/KCL are infusing well in JAMEY. Fall and safety precautions are in place.
[2019-12-05 06:14] LABS: ANION GAP 4 (5-15); CHLORIDE 101 mmol/L (98-107); CREATININE 0.84 mg/dL (0.55-1.30); GLUCOSE 83 mg/dL (70-99); PHOSPHORUS 3.7 mg/dL (2.7-4.5); POTASSIUM 3.8 mmol/L (3.5-5.1); SODIUM SERUM 129 mmol/L (136-145); UREA NITROGEN, BLOOD 26 mg/dL (8-21)
--- NOTE | 2019-12-05 06:42 | NUR ---
All pt's needs were attended to. Pt is awake and lying in bed without any distress noted. TPN, Lipids and IVF are infusing well via JAMEY Midline. Accucheck 92 this AM and no Insulin coverage needed. Skin warm and dry to touch. Fall and safety precautions are in place. Will endorse to day shift nurse.
--- NOTE | 2019-12-05 07:38 | NUR ---
OPENING NOTE Patient resting in the bed. No acute distress. Skin warm and dry to touch. Midline intact to JAMEY, no redness, no swelling, no drainage, covered with clean and dry transparent dressing. On TPN at 85ml/hr, lipid at 10ml/hr, and KCl 10mEq in 1/2NS at 30ml/hr, infusing well. Bilateral soft restraint in placed, able to move fingers and hands without difficulty, pulse present. Safety measure maintained. Call light within reached. Bed locked in low position, side rails up, bed alarm on. Will continue to monitor.
[2019-12-05 07:55] VITALS: BP_SYST 158
--- NOTE | 2019-12-05 09:45 | NUR ---
ROUND Patient resting in the bed. No acute distress. Skin warm and dry to touch. Midline intact to JAMEY, on TPN, lipid, and IVF infusing well. Bilateral soft restraint in placed, able to move fingers and hands without problem, pulse present. Safety measure maintained. Call light within reached. Bed locked in low position, side rails up, bed alarm on. Continue to monitor.
[2019-12-05 12:40] VITALS: BP_SYST 163
--- NOTE | 2019-12-05 12:55 | NUR ---
US BILATERAL UPPER EXTREMITIES DONE AT BEDSIDE Per central supply technician supervisor found something like thrombus will let the doctor read and give the result.
--- NOTE | 2019-12-05 13:25 | NUR ---
[facility]formed [facility] Edwards, US of bilateral upper extremities done and per equipment maintenance technician said found something like thrombus but the final result not come out yet. Per Dr. Edwards, if found out thrombus, order Lovenox per pharmacy dose. Will follow up with the result.
[2019-12-05 16:20] VITALS: BP_SYST 133
--- NOTE | 2019-12-05 16:50 | NUR ---
Nutrition F/U RD reviewed pt's current EMR including diet Hx, physician notes, nursing notes, pertinent labs/meds/procedures, care trends and care activity. Current Nutrition Support: NPO x6 days -AND- PPN D20%, AA8.5% at 85 ml/hr, IL20% at 10 ml/hr via peripheral line Provides: 1522 kcal/day, 87 gm protein/day, 2280 ml total volume/day, and GIR: 2.7 gm CHO/kg/min Meets: 98% of lower end of estimated caloric needs and 109% of upper end of estimated protein needs Subjective information: Pt seen in bed, sleeping, w/ PPN infusing as per physician/pharmacy order. Pt is meeting optimal nutritional needs w/ current PPN support. Estimated Energy Expenditure (kcals/day) 8485-5740 kcal/day (30-35 kcal/kg CBW for sepsis) Estimated Protein Required (g/day) 53-80 gm/day (1-1.5 gm/kg IBW for renal Dz predialysis/sepsis) Estimated Fluid Required (l/day) per MD (Renal Dz) Problem/Etiology/Signs/Symptoms Inadequate protein-energy intake r/t current diet order AEB NPO status and ST rec to keep pt on NPO and provide alternative method of feeding pt. *met Expected Outcomes/Goals Monitor TPN tolerance and intake w/ goal of pt meeting at least 75% of estimated nutritional needs, labs trending WNL, normal GI function, skin integrity/wt maintenance Dietitian Recommendations * Recommend continuing PPN D20%, AA8.5% at 85 ml/hr, IL20% at 10 ml/hr via peripheral line Provides: 1522 kcal/day, 87 gm protein/day, 2280 ml total volume/day, and GIR: 2.7 gm CHO/kg/min Meets: 98% of lower end of estimated caloric needs and 109% of upper end of estimated protein needs Follow Up High Risk: F/U in 2-3 days
--- NOTE | 2019-12-05 16:55 | NUR ---
Dietitian Recommendations * Recommend continuing PPN D20%, AA8.5% at 85 ml/hr, IL20% at 10 ml/hr via peripheral line Provides: 1522 kcal/day, 87 gm protein/day, 2280 ml total volume/day, and GIR: 2.7 gm CHO/kg/min Meets: 98% of lower end of estimated caloric needs and 109% of upper end of estimated protein needs LP, RD Please refer to Nutrition F/U for details.
--- NOTE | 2019-12-05 17:38 | NUR ---
FINAL RESULT OF US OF BILATERAL UPPER EXTREMITIES RECEIVED WITH THROMBUS ON RIGHT BASILIC VEIN SUPERFICIAL. DR. GLEASON INFORMED WITH ORDER RECEIVED.
[2019-12-05] MEDS ORDERED: *LOVENOX 1MG/KG Q24H/PHARMACY XX ONE (17:45)
[2019-12-05] MEDS: ENOXAPARIN SODIUM 40 MG/0.4 ML SYRINGE SUBCUT SCH (17:55)
[2019-12-05] MEDS: POTASSIUM CHLORIDE 10 MEQ in 0.45% NACL 1,000 ML IV SCH (18:03)
--- NOTE | 2019-12-05 19:25 | NUR ---
OPENING NOTES Pt and endorsement received from day shift nurse. Pt is awake, confused and lying in bed. Pt is on TPN at 85ml/hr and Liposyn at 10ml/hr and infusing well on left upper arm midline. Pt on saline lock on left forearm G20. Pt on restrains on both wrists with mittens, with no signs of injury noted. No complains of pain. No signs of acute distress or SOB noted. Safety precautions in place with 3 side rails up, wheels locked, bed alarm on and in lowest level. Call light with pt. Will continue to monitor. Addendum: 12/06/19 at 0046 by Elmira Stephens RN IVF with 0.45NS with 10mEq of KCL at 30ml/hr is infusing well on left forearm G20 and is NOT on saline lock.
[2019-12-05] MEDS ORDERED: SODIUM ACETATE IV SCH ×11 (21:00)
[2019-12-05] MEDS ORDERED: SODIUM CHLORIDE IV SCH ×11 (21:00)
[2019-12-05] MEDS ORDERED: [UNRECOGNIZED DRUG - OTHER] IV SCH ×11 (21:00)
[2019-12-05] MEDS ORDERED: TPN PERIPHERAL IV SCH ×11 (21:00)
[2019-12-05 21:40] VITALS: BP_SYST 139
[2019-12-05] MEDS: FAT EMULSIONS 250 ML IV SCH (21:51)
--- NOTE | 2019-12-05 21:55 | NUR ---
ROUNDS New TPN and Liposyn started as ordered and is infusing well. Incontinence care rendered with STEVE Gloria, pt tolerated well. No complains of pain and no signs of acute distress noted. Safety precautions in place and call light with pt. Will continue to monitor.
[2019-12-05] MEDS: INSULIN REGULAR, HUMAN 100 UNITS/ML, 10 ML VIAL (humuLIN R) SUBCUT PRN (23:31)
--- NOTE | 2019-12-06 00:05 | NUR ---
ROUNDS Pt is resting in bed with both eyes closed, with visible chest rise and fall with non-labored breathing noted. IVF, TPN and Liposyn are infusing well. No moaning or grimacing noted. No signs of acute distress noted. Pt wakes up at intervals and goes back to sleep. Safety precautions in place and call light with pt. Will continue to monitor.
[2019-12-06 00:14] VITALS: BP_SYST 146
--- NOTE | 2019-12-06 03:45 | NUR ---
ROUNDS Pt is awake, scratching his body with mittens on. IVF, TPN and Liposyn are infusing well. No complains of pain and no signs of acute distress noted. Encouraged pt to rest and sleep. Safety precautions in place and call light with pt. Will continue to monitor.
[2019-12-06] MEDS: INSULIN REGULAR, HUMAN 100 UNITS/ML, 10 ML VIAL (humuLIN R) SUBCUT PRN ×2 (05:11→23:07)
--- NOTE | 2019-12-06 06:49 | NUR ---
CLOSING NOTES Pt is resting in bed with both eyes closed, with visible chest rise and fall with non-labored breathing noted. IVF, TPN and Liposyn are infusing well. No moaning or grimacing noted. No signs of acute distress or SOB noted. All needs attended throughout the shift. Safety precautions in place with 3 side rails up, wheels locked, bed alarm on and in lowest level. Call light with pt. Will endorse to day shift nurse.
--- NOTE | 2019-12-06 08:00 | NUR ---
initial notes rec pt awake confused with ivf infusing well on the l forearm and a midline. no infiltration noted. resp easy and unlabored.no sob noted.call light within reached . bed to the lowest position and side rails up up and locked.
[2019-12-06 09:26] LABS: ALANINE AMINOTRANSFERASE 18 U/L (12-78); ALBUMIN 2.2 g/dL (3.4-4.8); ANION GAP 4 (5-15); ASPARTATE AMINOTRANSFERASE 26 U/L (10-37); CALCIUM 7.9 mg/dL (8.4-11.0); CHLORIDE 104 mmol/L (98-107); CREATININE 0.81 mg/dL (0.55-1.30); GLUCOSE 86 mg/dL (70-99); PHOSPHORUS 3.9 mg/dL (2.7-4.5); POTASSIUM 4.5 mmol/L (3.5-5.1); SODIUM SERUM 134 mmol/L (136-145); TOTAL BILIRUBIN 0.7 mg/dL (0.0-1.0); UREA NITROGEN, BLOOD 25 mg/dL (8-21)
[2019-12-06 12:16] VITALS: BP_SYST 161
--- NOTE | 2019-12-06 14:04 | NUR ---
rounds no osbnoted. bed to the lowest position. no hypo /hyperglycemic reaction noted.
[2019-12-06 16:28] VITALS: BP_SYST 167
--- NOTE | 2019-12-06 18:45 | NUR ---
closing notes dr quinones ask to call dr hui in am for possible gt placement for patient. endorsed to [facility] sec to call dr hui. bd was 85 only. no sob noted. tpn lipids infusing well and reg iv to the r mid line. no osb noted.
[2019-12-06] MEDS: ENOXAPARIN SODIUM 40 MG/0.4 ML SYRINGE SUBCUT SCH (19:13)
[2019-12-06] MEDS: POTASSIUM CHLORIDE 10 MEQ in 0.45% NACL 1,000 ML IV SCH (19:16)
--- NOTE | 2019-12-06 19:30 | NUR ---
OPENING NOTES Pt and endorsement received from day shift nurse. Pt is resting in bed with both eyes closed, with visible chest rise and fall with non-labored breathing noted. Pt is on TPN at 89.64ml/hr, Liposyn at 10ml/hr and infusing well on left upper arm midline and IVF of 0.45NS with 10mEq of KCL at 30ml/hr and infusing well on left FA G20. Pt on restrains on both wrists with mittens, with no signs of injury noted. No moaning or grimacing noted. No signs of acute distress or SOB noted. Safety precautions in place with 3 side rails up, wheels locked, bed alarm on and in lowest level. Call light with pt. Will continue to monitor.
[2019-12-06 20:57] VITALS: BP_SYST 144
[2019-12-06] MEDS ORDERED: SODIUM CHLORIDE IV SCH ×11 (21:00)
[2019-12-06] MEDS ORDERED: SODIUM ACETATE IV SCH ×11 (21:00)
[2019-12-06] MEDS ORDERED: [UNRECOGNIZED DRUG - OTHER] IV SCH ×11 (21:00)
[2019-12-06] MEDS ORDERED: TPN PERIPHERAL IV SCH ×11 (21:00)
[2019-12-06] MEDS: FAT EMULSIONS 250 ML IV SCH (21:01)
--- NOTE | 2019-12-06 21:01 | NUR ---
ROUNDS New TPN and Liposyn started as ordered and is infusing well. No complains of pain and no signs of acute distress noted. IVF infusing well. Safety precautions in place and call light with pt. Will continue to monitor.
--- NOTE | 2019-12-06 23:00 | NUR ---
ROUNDS Incontinence care rendered with STEVE Fitzpatrick and pt tolerated well. No signs of acute distress or SOB noted. TPN, Liposyn and IVF are infusing well. Safety precautions in place and call light with pt. Will continue to monitor.
[2019-12-07 00:11] VITALS: BP_SYST 129
--- NOTE | 2019-12-07 02:02 | NUR ---
ROUNDS Pt is awake, scratching and arms keeps moving a lot with mittens on. IVF, TPN and Liposyn are infusing well. No complains of pain and no signs of acute distress noted. No signs of injury on both wrists. Encouraged pt to rest and sleep. Safety precautions in place and call light with pt. Will continue to monitor.
--- NOTE | 2019-12-07 03:32 | NUR ---
ROUNDS Pt is still awake, a little restless and keeps moving both arms with mittens on. IVF, TPN and Liposyn are infusing well. No complains of pain and no signs of acute distress noted. Encouraged again pt to rest and sleep. Safety precautions in place and call light with pt. Will continue to monitor.
[2019-12-07] MEDS: INSULIN REGULAR, HUMAN 100 UNITS/ML, 10 ML VIAL (humuLIN R) SUBCUT PRN (05:02)
--- NOTE | 2019-12-07 06:40 | NUR ---
CLOSING NOTES Pt is awake and lying in bed. IVF, TPN and Liposyn are infusing well. No complains of pain. No signs of acute distress or SOB noted. No signs of injury on both wrists. All needs attended throughout the shift. Safety precautions in place with 3 side rails up, wheels locked, bed alarm on and in lowest level. Call light with pt. Will endorse to day shift nurse.
[2019-12-07 07:19] LABS: ALANINE AMINOTRANSFERASE 17 U/L (12-78); ALBUMIN 2.2 g/dL (3.4-4.8); ANION GAP 7 (5-15); ASPARTATE AMINOTRANSFERASE 18 U/L (10-37); CALCIUM 8.1 mg/dL (8.4-11.0); CHLORIDE 103 mmol/L (98-107); GLUCOSE 90 mg/dL (70-99); POTASSIUM 4.2 mmol/L (3.5-5.1); SODIUM SERUM 134 mmol/L (136-145); TOTAL BILIRUBIN 0.7 mg/dL (0.0-1.0); TRIGLYCERIDES 61 mg/dL (30-150); UREA NITROGEN, BLOOD 26 mg/dL (8-21)
[2019-12-07 08:00] VITALS: BP_SYST 144
[2019-12-07 12:20] VITALS: BP_SYST 115
[2019-12-07 16:27] VITALS: BP_SYST 148
[2019-12-07] MEDS: POTASSIUM CHLORIDE 10 MEQ in 0.45% NACL 1,000 ML IV SCH (17:50)
[2019-12-07] MEDS: ENOXAPARIN SODIUM 40 MG/0.4 ML SYRINGE SUBCUT SCH (18:01)
--- NOTE | 2019-12-07 19:20 | NUR ---
initial notes: pt is awake, alert. confused, non verbal on bed. no sign of pain. not distress. stable vital sign. pt has tpn and lipids infusing well to right upper arm midline. pt has bilateral mittens restrains due pt is pulling out tube and iv lines. pt is incontinent of bnb, IAD seen at bilateral buttocks. clean pt and z guard applied. safety on low bed position and alarm on, side rails up. side rail up. will follow-up.
[2019-12-07 20:30] VITALS: BP_SYST 145
--- NOTE | 2019-12-07 22:00 | NUR ---
awake, alert, confused. stable, no pain. safety on, side rails up x 3. will follow-up.
[2019-12-07] MEDS: [UNRECOGNIZED DRUG - OTHER] IV SCH ×11 (22:48)
[2019-12-07] MEDS: SODIUM CHLORIDE IV SCH ×11 (22:48)
[2019-12-07] MEDS: TPN PERIPHERAL IV SCH ×11 (22:48)
[2019-12-07] MEDS: SODIUM ACETATE IV SCH ×11 (22:48)
[2019-12-07] MEDS: FAT EMULSIONS 250 ML IV SCH (22:49)
--- NOTE | 2019-12-08 | NUR ---
pt is still awake, alert, clean pt and change chux, gowna nd linen with help of senior dentist. needs attended. safety on. will folow-up.
[2019-12-08 00:20] VITALS: BP_SYST 135
--- NOTE | 2019-12-08 04:00 | NUR ---
pt is still awake. pt voided incontinent. clean and change pt gown a d linen. needs attended, safety on. will follow-up.
--- NOTE | 2019-12-08 06:00 | NUR ---
pt is awake, alert, stable. no sob, clean by shai martin, blood sugar 94. needs attended, call light in reach. safety on. will follow-up.
--- NOTE | 2019-12-08 07:25 | NUR ---
closing: pt is still awake. confused, non verbal. stable. no sign of pain. clean and dry, ivf infusing well. needs attended the whole shift. safety on.bedside report given to am rn.
--- NOTE | 2019-12-08 08:00 | NUR ---
received awake but confused disoriented and repositioned in bed incontinent and cleaned.vss tpn infusing as ordered.bl mittens on and released per protocol and continue to monitor q2h.resp even and unlabored.continue to monitor
[2019-12-08] MEDS: POTASSIUM CHLORIDE 10 MEQ in 0.45% NACL 1,000 ML IV SCH ×2 (08:13→23:29)
[2019-12-08 08:30] LABS: ALANINE AMINOTRANSFERASE 19 U/L (12-78); ALBUMIN 2.2 g/dL (3.4-4.8); ANION GAP 7 (5-15); ASPARTATE AMINOTRANSFERASE 21 U/L (10-37); CALCIUM 7.9 mg/dL (8.4-11.0); CHLORIDE 105 mmol/L (98-107); CREATININE 0.88 mg/dL (0.55-1.30); GLUCOSE 88 mg/dL (70-99); PHOSPHORUS 3.3 mg/dL (2.7-4.5); POTASSIUM 4.2 mmol/L (3.5-5.1); SODIUM SERUM 138 mmol/L (136-145); TOTAL BILIRUBIN 0.6 mg/dL (0.0-1.0); UREA NITROGEN, BLOOD 24 mg/dL (8-21)
[2019-12-08 12:00] VITALS: BP_SYST 139
--- NOTE | 2019-12-08 12:00 | NUR ---
turned and repositioned q2h and restraints released q2h continue to monitor
[2019-12-08 16:27] VITALS: BP_SYST 101
[2019-12-08] MEDS: ENOXAPARIN SODIUM 40 MG/0.4 ML SYRINGE SUBCUT SCH (18:00)
--- NOTE | 2019-12-08 18:28 | NUR ---
remains unchanged and tpn infusing and turned q2h and restraints released q2h vss.resp even and unlabored remains unresponsive to questions continue to monitor
--- NOTE | 2019-12-08 19:30 | NUR ---
OPENING NOTES Received patient resting in bed, no signs of acute respiratory distress observed, IVF running Left Upper arm midline, patent, dressings c/d/i. Call light within reach, bed alarm on, bed at lowest position, mitten restraints in place, will check every 2 hours with ten minute releases. Will continue to monitor.
--- NOTE | 2019-12-08 19:38 | NUR ---
report to night rn given
[2019-12-08 20:00] VITALS: BP_SYST 127
--- NOTE | 2019-12-08 21:30 | NUR ---
Patient is resting, no signs of distress observed. Incontinence care provided. Will continue to monitor.
[2019-12-08] MEDS: TPN PERIPHERAL IV SCH ×11 (22:42)
[2019-12-08] MEDS: SODIUM CHLORIDE IV SCH ×11 (22:42)
[2019-12-08] MEDS: [UNRECOGNIZED DRUG - OTHER] IV SCH ×11 (22:42)
[2019-12-08] MEDS: SODIUM ACETATE IV SCH ×11 (22:42)
[2019-12-08] MEDS: FAT EMULSIONS 250 ML IV SCH (22:43)
[2019-12-09 00:22] VITALS: BP_SYST 114
--- NOTE | 2019-12-09 03:20 | NUR ---
Patient is asleep, rise and fall of chest observed, no distress observed. Will continue to monitor.
[2019-12-09 06:31] LABS: ALANINE AMINOTRANSFERASE 13 U/L (12-78); ANION GAP 7 (5-15); ASPARTATE AMINOTRANSFERASE 18 U/L (10-37); CALCIUM 7.4 mg/dL (8.4-11.0); CHLORIDE 105 mmol/L (98-107); CREATININE 0.88 mg/dL (0.55-1.30); GLUCOSE 102 mg/dL (70-99); PHOSPHORUS 3.4 mg/dL (2.7-4.5); POTASSIUM 3.5 mmol/L (3.5-5.1); SODIUM SERUM 136 mmol/L (136-145); TOTAL BILIRUBIN 0.5 mg/dL (0.0-1.0); UREA NITROGEN, BLOOD 26 mg/dL (8-21)
--- NOTE | 2019-12-09 07:30 | NUR ---
CLOSING NOTES Received patient resting in bed, no signs of acute respiratory distress observed, IVF running Left Upper arm midline, patent, dressings c/d/i. Call light within reach, bed alarm on, bed at lowest position, mitten restraints in place, will check every 2 hours with ten minute releases. All needs met throughout shift. Will endorse care to oncoming shift.
[2019-12-09 08:00] VITALS: BP_SYST 158
--- NOTE | 2019-12-09 08:00 | NUR ---
OPENING NOTES Received pt. in bed, no signs of acute respiratory distress observed, no sob. Vitals wnl. no fever. IVF running Left Upper arm midline, patent, dressings clean and dry. Safety precaution in place. Mitten restraints in place to prevent pt from pulling out iv tubings and midline. Call light within reach, bed alarm on, bed at lowest position. Will continue to monitor.
--- NOTE | 2019-12-09 09:54 | NUR ---
pt turned and repositioned. no s/s of sob and pain. mittens on.
[2019-12-09 11:13] VITALS: BP_SYST 143
--- NOTE | 2019-12-09 11:18 | NUR ---
pt resting in bed, eyes closed. no sob, no distress. will cont to monitor.
--- NOTE | 2019-12-09 12:05 | NUR ---
pt in bed, eyes open, turned and repositioned. no sob, no distress.
--- NOTE | 2019-12-09 13:49 | NUR ---
pt now lying in bed. no sob, no distress. pt had hd. r. av shunt dressing reinforced by transmitter engineer in chargeshakira roland.
--- NOTE | 2019-12-09 13:51 | NUR ---
pt in bed, no sob, no resp distress.
[2019-12-09 15:10] VITALS: BP_SYST 132
[2019-12-09] MEDS: ENOXAPARIN SODIUM 40 MG/0.4 ML SYRINGE SUBCUT SCH (18:02)
[2019-12-09 20:00] VITALS: BP_SYST 140
--- NOTE | 2019-12-09 20:00 | NUR ---
received pt in bed v/s and assessment done sa,e stable ,pm care given repositioned made comfortable ,mittens in place ,iv fluids and tpn in place infusing via lt arm picc,not distress noted at this time .
--- NOTE | 2019-12-09 20:01 | NUR ---
closing notes, pt endorsed to night nurse. pt has been stable the whole shift, no sob, no resp distress. no pain. all meds given. picc line intact and patent.
[2019-12-09] MEDS: TPN PERIPHERAL IV SCH ×11 (21:23)
[2019-12-09] MEDS: SODIUM ACETATE IV SCH ×11 (21:23)
[2019-12-09] MEDS: [UNRECOGNIZED DRUG - OTHER] IV SCH ×11 (21:23)
[2019-12-09] MEDS: SODIUM CHLORIDE IV SCH ×11 (21:23)
[2019-12-09] MEDS: FAT EMULSIONS 250 ML IV SCH (21:24)
[2019-12-10 00:16] VITALS: BP_SYST 144
--- NOTE | 2019-12-10 04:00 | NUR ---
am care given made comfortable no distress noted at this time
[2019-12-10 06:01] LABS: ANION GAP 7 (5-15); CALCIUM 8.1 mg/dL (8.4-11.0); CHLORIDE 102 mmol/L (98-107); CREATININE 0.86 mg/dL (0.55-1.30); GLUCOSE 81 mg/dL (70-99); POTASSIUM 3.7 mmol/L (3.5-5.1); SODIUM SERUM 133 mmol/L (136-145); UREA NITROGEN, BLOOD 25 mg/dL (8-21)
[2019-12-10 06:02] LABS: ALANINE AMINOTRANSFERASE 20 U/L (12-78); ALBUMIN 2.4 g/dL (3.4-4.8); ASPARTATE AMINOTRANSFERASE 19 U/L (10-37); PHOSPHORUS 3.8 mg/dL (2.7-4.5); TOTAL BILIRUBIN 0.6 mg/dL (0.0-1.0)
[2019-12-10 07:30] VITALS: BP_SYST 120
[2019-12-10 12:47] VITALS: BP_SYST 131
[2019-12-10] MEDS ORDERED: MENTHOL/ZINC OXIDE 113 GM OINT. TP PRN (13:30)
--- NOTE | 2019-12-10 13:30 | NUR ---
MATTHEW SCALE EVALUATION: Patient evaluated for a low Matthew score of 13. Patient was awake, non-verbal, non-responsive to verbal commands, and received in a [place] bed with an IsoFlex DONAL mattress. Patient is unable to turn in bed independently. Skin assessment: 1. Buttocks: Blanchable red erythema from IAD. Recommend: Cleanse involved areas with mild soap and water. Pat dry. Apply Calmoseptine cream to involved areas. Perform site care 4 times a day as needed for soiling. Recommend reposition patient side to side only every 2 hours with pillow support and off-load pressure areas with pillows for pressure re-distribution. Elevate, off-load and float bilateral heels with pillows. Use Calmoseptine cream on buttocks and other moisture susceptible areas QID and as needed for soiling. Perform skin care and monitor skin integrity Q shift. Initiate low air-loss therapy.
--- NOTE | 2019-12-10 15:17 | NUR ---
spoke with social media coordinator chrissy quinones telling me to tell dr hui (gi) that pt needs to do the peg tube.
--- NOTE | 2019-12-10 15:21 | NUR ---
dr quinones reminded that the pt is receiving 125 cc/h of iv fluids. said it is okay.
[2019-12-10 16:58] VITALS: BP_SYST 131
[2019-12-10] MEDS: POTASSIUM CHLORIDE 10 MEQ in 0.45% NACL 1,000 ML IV SCH (17:21)
[2019-12-10] MEDS: ENOXAPARIN SODIUM 40 MG/0.4 ML SYRINGE SUBCUT SCH (17:22)
--- NOTE | 2019-12-10 19:01 | NUR ---
CLOSING NOTES, PT HAS BEEN STABLE, NO FEVER, NO SOB, NO UNTOWARD INCIDENT DURING THE SHIFT. PICC LINE INFUSING WELL. NO LEAK. SPOKE WITH AUTOMOTIVE SERVICE DIRECTOR RE PEG PLACEMENT. I WAS TOLD NOBODY WILL SIGN CONSENT FOR THE PATIENT HE HAS NO FAMILY. BEST BET IS TO SEND BACK PT TO SNF AND HAVE THEM WORK ON CONSERVATORSHIP. WILL ENDORSE TO NIGHT
[2019-12-10 20:04] VITALS: BP_SYST 130
[2019-12-10] MEDS: FAT EMULSIONS 250 ML IV SCH (21:21)
[2019-12-10] MEDS: [UNRECOGNIZED DRUG - OTHER] IV SCH ×11 (21:22)
[2019-12-10] MEDS: SODIUM CHLORIDE IV SCH ×11 (21:22)
[2019-12-10] MEDS: SODIUM ACETATE IV SCH ×11 (21:22)
[2019-12-10] MEDS: TPN PERIPHERAL IV SCH ×11 (21:22)
[2019-12-11 01:04] VITALS: BP_SYST 130
[2019-12-11 04:00] VITALS: BP_SYST 128
--- NOTE | 2019-12-11 07:25 | NUR ---
INITIAL NOTE PT RESTING AWAKE, NO ACUTE DISTRESS NOTED, PT REMAINS NON VERBAL. REPOSITIONED FOR COMFORT. BILATERAL SOFT MITTENS ON. IVF INFUSING WELL. CALL LIGHT WITHIN REACH, BED IN LOW AND LOCKED POSITION WITH BED ALARM ON.
[2019-12-11 07:42] LABS: ANION GAP 5 (5-15); CALCIUM 7.6 mg/dL (8.4-11.0); CHLORIDE 107 mmol/L (98-107); CREATININE 0.84 mg/dL (0.55-1.30); GLUCOSE 90 mg/dL (70-99); PHOSPHORUS 3.7 mg/dL (2.7-4.5); POTASSIUM 4.3 mmol/L (3.5-5.1); SODIUM SERUM 138 mmol/L (136-145); UREA NITROGEN, BLOOD 25 mg/dL (8-21)
[2019-12-11 08:00] VITALS: BP_SYST 138
--- NOTE | 2019-12-11 09:38 | NUR ---
RN ROUNDS PT AWAKE, REMAINS NON VERBAL, REPOSITIONED PT FOR COMFORT. PT TOLERATED WELL. VSS. WILL CONTINUE TO MONITOR.
--- NOTE | 2019-12-11 11:38 | NUR ---
RN ROUNDS PT RESTING IN BED, NO ACUTE DISTRESS NOTED, BREATHING EVEN AND UNLABORED.
[2019-12-11 13:23] VITALS: BP_SYST 154
--- NOTE | 2019-12-11 13:40 | NUR ---
RN ROUNDS PT QUIET, RESTING, REPOSITIONED FOR COMFORT. WILL CONTINUE TO MONITOR.
--- NOTE | 2019-12-11 15:40 | NUR ---
RN ROUNDS PT INCONTINENT OF URINE, YELLOW, CLEANED PT AND REPOSITIONED. FOR COMFORT. PT TOLERATED WELL.
--- NOTE | 2019-12-11 16:03 | NUR ---
Nutrition F/U RD reviewed pt's current EMR including diet Hx, physician notes, nursing notes, pertinent labs/meds/procedures, care trends, and care activity. Current Nutrition Support: NPO x12 days -AND- PPN D20%, AA8.5% at 85 ml/hr, IL20% at 10 ml/hr via peripheral line Provides: 1522 kcal/day, 87 gm protein/day, 2280 ml total volume/day, and GIR: 2.7 gm CHO/kg/min Meets: 98% of lower end of estimated caloric needs and 109% of upper end of estimated protein needs Subjective information: Pt seen in bed, sleeping, +bilateral mittens, w/ PPN infusing as per physician/pharmacy order. BG levels appear well-controlled per EMR records. Bedscale wt taken: 127# -- likely inaccurate d/t linens. Pt is meeting optimal nutritional needs w/ current PPN support. Estimated Energy Expenditure (kcals/day) 5212-1826 kcal/day (30-35 kcal/kg CBW for sepsis) Estimated Protein Required (g/day) 53-80 gm/day (1-1.5 gm/kg IBW for renal Dz predialysis/sepsis) Estimated Fluid Required (l/day) Per MD (renal Dz) Problem/Etiology/Signs/Symptoms Inadequate protein-energy intake r/t current diet order AEB NPO status and ST rec to keep pt on NPO and provide alternative method of feeding pt. *met Expected Outcomes/Goals Monitor TPN tolerance and intake w/ goal of pt meeting at least 75% of estimated nutritional needs, labs trending WNL, normal GI function, skin integrity/wt maintenance Dietitian Recommendations * Recommend continuing PPN D20%, AA8.5% at 85 ml/hr, IL20% at 10 ml/hr via peripheral line Provides: 1522 kcal/day, 87 gm protein/day, 2280 ml total volume/day, and GIR: 2.7 gm CHO/kg/min Meets: 98% of lower end of estimated caloric needs and 109% of upper end of estimated protein needs Follow Up High Risk: F/U in 2-3 days Addendum: 12/11/19 at [address] Nutrition Consult received for Matthew Score 12, red buttocks, decr. mobility, NPO 12/10/19 0860.
[2019-12-11 16:55] VITALS: BP_SYST 154
[2019-12-11] MEDS: ENOXAPARIN SODIUM 40 MG/0.4 ML SYRINGE SUBCUT SCH (17:59)
[2019-12-11] MEDS ORDERED: TPN PERIPHERAL IV SCH ×11 (18:00)
[2019-12-11] MEDS ORDERED: SODIUM CHLORIDE IV SCH ×11 (18:00)
[2019-12-11] MEDS ORDERED: SODIUM ACETATE IV SCH ×11 (18:00)
[2019-12-11] MEDS ORDERED: [UNRECOGNIZED DRUG - OTHER] IV SCH ×11 (18:00)
[2019-12-11] MEDS: POTASSIUM CHLORIDE 10 MEQ in 0.45% NACL 1,000 ML IV SCH (18:02)
--- NOTE | 2019-12-11 18:32 | NUR ---
CLOSING NOTE PT RESTING, NO ACUTE DISTRESS NOTED, PT ON ROOM AIR TOLERATING WELL. IVF INFUSING WELL. BILATERAL SOFT MITTENS IN PLACE. SKIN ASSESSMENT WITHIN NORMAL LIMITS. ALL NEEDS MET THROUGHOUT SHIFT. CALL LIGHT WITHIN REACH, BED IN LOW AND LOCKED POSITION WITH BED ALARM ON. WILL CONTINUE TO MONITOR UNTIL PT CARE IS ENDORSED TO MILL CRANE OPERATOR RN.
[2019-12-11 20:00] VITALS: BP_SYST 115
--- NOTE | 2019-12-11 20:00 | NUR ---
REPORT GIVEN @ START OF SHIFT FROM DAYSHIFT CATHY WARNER,PATIENT IS NON-VERBAL,WITH CONFUSION, RESPIRATIONS EVEN AND UNLABORED, HOB ELEVATED 40 DEGREES. TPN INFUSING @ 85 ML/HR IN ONUR, FRESH LIPIDS HUNG AND INFUSING IN MIDLINE IV@, 10 ML/HR, BILATERAL HAND MITTENS ON TO HELP PREVENT PATIENT FROM PULLING OUT IV LINES. NPO, INCONTINENT OF LARGE BROWN, SOFT BM ,KEPT CLEAN AND DRY AFTER EACH EPISODE OF INCONTINENCY,, SKIN INTACT, SR'S UP X'S 4, CALL LIGHT WITHIN REACH, WILL CONTINUE TO MONITOR.
[2019-12-11] MEDS: FAT EMULSIONS 250 ML IV SCH (21:48)
--- NOTE | 2019-12-12 | NUR ---
RESTING QUIETLY IN BED WITH EYES CLOSED, EASILY AROUSED, NO NOTED CHANGES IN PRESENT CONDITION, WILL CONTINUE TO MONITOR
[2019-12-12] MEDS: INSULIN REGULAR, HUMAN 100 UNITS/ML, 10 ML VIAL (humuLIN R) SUBCUT PRN ×2 (01:00→06:55)
[2019-12-12 02:03] VITALS: BP_SYST 121
[2019-12-12 04:00] VITALS: BP_SYST 109
--- NOTE | 2019-12-12 04:00 | NUR ---
TURNED AND REPOSITIONED, TPN INFUSING WITH LIPID VIA MIDLINE IN [place], INCONTINENT OF URINE KEPT CLEAN AND DRY, REMAINS NPO,, NONVERBAL ALL NEED ANTICAPATED AND MET, WILL CONTINUE TO MONITOR.
--- NOTE | 2019-12-12 07:15 | NUR ---
OPENING NOTES PT RESTING IN BED. CHEST RISE AND FALL NOTED. PT NONVERBAL. HOB ELEVATED AT 40 DEGREES. NONLABORED BREATHING. IV INTACT AND PATENT, NO SIGNS OF INFILTRATION. FLUIDS, TPN, AND LIPIDS INFUSING ORDERED. TOLERATING WELL. BILATERAL SOFT HAND MITTENS INTACT. NO SIGNS OF REDNESS, NO INJURY NOTED. SKIN INTACT. PT CLEAN AND DRY. NO ACUTE DISTRESS NOTED. ALL NEEDS MET. FALL AND ASPIRATION PRECAUTIONS IN PLACE. CALL LIGHT IN REACH. CONTINUE TO MONITOR.
[2019-12-12 07:42] LABS: ANION GAP 5 (5-15); CALCIUM 7.9 mg/dL (8.4-11.0); CHLORIDE 103 mmol/L (98-107); CREATININE 0.82 mg/dL (0.55-1.30); GLUCOSE 99 mg/dL (70-99); PHOSPHORUS 3.4 mg/dL (2.7-4.5); POTASSIUM 3.5 mmol/L (3.5-5.1); SODIUM SERUM 133 mmol/L (136-145); UREA NITROGEN, BLOOD 22 mg/dL (8-21)
--- NOTE | 2019-12-12 09:15 | NUR ---
ROUNDS PT AWAKE. NO ACUTE DISTRESS NOTED. ALL NEEDS MET. FALL AND ASPIRATION PRECAUTIONS IN PLACE. CALL LIGHT IN REACH. CONTINUE TO MONITOR.
--- NOTE | 2019-12-12 11:15 | NUR ---
PERINEAL CARE ASSISTED PT WITH PERINEAL CARE. TOLERATED WELL. PT CLEAN AND DRY. NO ACUTE DISTRESS NOTED. ALL NEEDS MET. CALL LIGHT IN REACH. FALL AND ASPIRATION PRECAUTIONS IN PLACE. CONTINUE TO MONITOR.
--- NOTE | 2019-12-12 13:04 | NUR ---
ACCUCHECK ACCUCHECK DONE. RESULT 82 MG/DL. TOLERATED WELL. NO ACUTE DISTRESS NOTED. ALL NEEDS MET. CALL LIGHT IN REACH. FALL AND ASPIRATION PRECAUTIONS IN PLACE. CONTINUE TO MONITOR.
[2019-12-12 13:24] VITALS: BP_SYST 160
--- NOTE | 2019-12-12 15:04 | NUR ---
ROUNDS PT AWAKE. NONLABORED BREATHING. NO ACUTE DISTRESS NOTED. ALL NEEDS MET. CALL LIGHT IN REACH. FALL AND ASPIRATION PRECAUTIONS IN PLACE. CONTINUE TO MONITOR.
[2019-12-12 16:29] VITALS: BP_SYST 175
[2019-12-12] MEDS: POTASSIUM CHLORIDE 10 MEQ in 0.45% NACL 1,000 ML IV SCH (17:16)
--- NOTE | 2019-12-12 17:16 | NUR ---
ROUTINE MEDS MEDS ADMINISTERED ORDERED PER MD. EDUCATION GIVEN. TOLERATED WELL. NO ACUTE DISTRESS NOTED. ALL NEEDS MET. CALL LIGHT IN REACH. FALL AND ASPIRATION PRECAUTIONS IN PLACE. CONTINUE TO MONITOR.
[2019-12-12] MEDS: ENOXAPARIN SODIUM 40 MG/0.4 ML SYRINGE SUBCUT SCH (17:18)
[2019-12-12 17:28] VITALS: BP_SYST 135
--- NOTE | 2019-12-12 18:45 | NUR ---
CLOSING NOTE PT RESTING IN BED. CHEST RISE AND FALL NOTED. NONLABORED BREATHING. IV INTACT AND PATENT. NO INFILTRATION NOTED. FLUIDS AND TPN FLOWING ORDERED. TOLERATING WELL. NO ACUTE DISTRESS NOTED. PT CLEAN AND DRY. NO INJURY, NO REDNESS ON SITE OF BILATERAL MITTENS. FALL AND ASPIRATION PRECAUTIONS IN PLACE. CALL LIGHT IN REACH. ALL NEEDS MET. WILL ENDORSE TO NOC NURSE.
[2019-12-12 20:00] VITALS: BP_SYST 168
[2019-12-12] MEDS: FAT EMULSIONS 250 ML IV SCH (21:57)
[2019-12-12] MEDS: TPN PERIPHERAL IV SCH ×11 (22:00)
[2019-12-12] MEDS: [UNRECOGNIZED DRUG - OTHER] IV SCH ×11 (22:00)
[2019-12-12] MEDS: SODIUM ACETATE IV SCH ×11 (22:00)
[2019-12-12] MEDS: SODIUM CHLORIDE IV SCH ×11 (22:00)
[2019-12-13] VITALS (8 sets, daily range): BP systolic 137–187
[2019-12-13] MEDS: hydrALAZINE HCL 20 MG/ML VIAL IVP PRN ×2 (00:54→13:04)
--- NOTE | 2019-12-13 08:00 | NUR ---
Initial notes- In bed, awake, confused. on room air tolerating well. on bilateral mittens to prevents pulling out tubings. incontinent of bowel and bladder. repositioned for comfort. on tpn and lipids. keep npo. oral care done. bed alarm on. will monitor.
--- NOTE | 2019-12-13 10:23 | NUR ---
Has incontinence of urine, pt voided good amount of urine. cleaned and repositioned. no acute distress noted. remain confused.
[2019-12-13 12:32] LABS: ANION GAP 9 (5-15); CALCIUM 8.5 mg/dL (8.4-11.0); CHLORIDE 103 mmol/L (98-107); CREATININE 0.83 mg/dL (0.55-1.30); GLUCOSE 100 mg/dL (70-99); PHOSPHORUS 3.5 mg/dL (2.7-4.5); POTASSIUM 3.7 mmol/L (3.5-5.1); SODIUM SERUM 135 mmol/L (136-145); UREA NITROGEN, BLOOD 23 mg/dL (8-21)
--- NOTE | 2019-12-13 12:46 | NUR ---
Notes- repositioned, no distress noted.
--- NOTE | 2019-12-13 16:00 | NUR ---
Picc/midline dressing change done using aseptic technique. site is clean, no redness or drainage. no swelling noted.
[2019-12-13] MEDS: POTASSIUM CHLORIDE 10 MEQ in 0.45% NACL 1,000 ML IV SCH (17:23)
[2019-12-13] MEDS: ENOXAPARIN SODIUM 40 MG/0.4 ML SYRINGE SUBCUT SCH (17:31)
--- NOTE | 2019-12-13 18:27 | NUR ---
Notes- Awake, no acute distress noted. repositioned for comfort. No change in assessment. Will endorse
--- NOTE | 2019-12-13 19:35 | NUR ---
Opening Note Received report from loraine RN, patient is resting in bed, A/Ox1, even and unlabored breathing on room air, IV fluids infusing to left upper arm, patent/benign, no signs of acute distress, bilateral mittens in place, safety and fall precautions in place, bed locked and in lowest position, bed alarm on, three side rails up, call light with patient, will continue to monitor.
[2019-12-13] MEDS: SODIUM ACETATE IV SCH ×11 (21:36)
[2019-12-13] MEDS: SODIUM CHLORIDE IV SCH ×11 (21:36)
[2019-12-13] MEDS: TPN PERIPHERAL IV SCH ×11 (21:36)
[2019-12-13] MEDS: [UNRECOGNIZED DRUG - OTHER] IV SCH ×11 (21:36)
[2019-12-13] MEDS: FAT EMULSIONS 250 ML IV SCH (21:37)
--- NOTE | 2019-12-13 21:40 | NUR ---
Medications Patient resting in bed, educated patient on 2100 scheduled medications uses and potential side effects, patient unable to verbalize understanding, due to cognitive limitations, hung scheduled medications, no complaints of pain at this time, patient tolerated well, safety, aspiration, and fall precautions in place, call light with patient, will continue to monitor.
[2019-12-14] VITALS: BP_SYST 155
--- NOTE | 2019-12-14 00:23 | NUR ---
EK=869 BS is 100. No insulin coverage per sliding scale at this time. No signs of acute distress. Safety and fall precautions in place. Call light with patient, will continue to monitor.
--- NOTE | 2019-12-14 02:01 | NUR ---
Incontinence Care Patient voided. Incontinence care rendered by this RN and Kristine WILSON. Patient is clean, dry, and repositioned. Patient tolerated well. Call light with patient, will continue to monitor.
--- NOTE | 2019-12-14 05:31 | NUR ---
OG=552 BS is 108. No insulin coverage per sliding scale at this time. No signs of acute distress. Safety and fall precautions in place. Call light with patient, will continue to monitor.
[2019-12-14] MEDS: POTASSIUM CHLORIDE 10 MEQ in 0.45% NACL 1,000 ML IV SCH (05:38)
--- NOTE | 2019-12-14 06:59 | NUR ---
Closing Note Patient is resting in bed, even and unlabored breathing on room air, no signs of acute distress, IV fluids infusing to left upper arm, patent/benign, bilateral mittens in place, safety and fall precautions in place, bed locked and in lowest position, bed alarm on, three side rails up, call light with patient, will endorse care to dayshift RN.
[2019-12-14 07:17] LABS: ANION GAP 5 (5-15); CALCIUM 7.9 mg/dL (8.4-11.0); CHLORIDE 107 mmol/L (98-107); CREATININE 0.95 mg/dL (0.55-1.30); GLUCOSE 113 mg/dL (70-99); PHOSPHORUS 3.5 mg/dL (2.7-4.5); POTASSIUM 3.9 mmol/L (3.5-5.1); SODIUM SERUM 138 mmol/L (136-145); UREA NITROGEN, BLOOD 25 mg/dL (8-21)
--- NOTE | 2019-12-14 08:00 | NUR ---
VERY QUIET NON VERBAL CAME WITH PNA AND SOB
--- NOTE | 2019-12-14 10:00 | NUR ---
REPOSITIONED TO SIDES STILL NON VERBAL REMAINS INCONTINENT
--- NOTE | 2019-12-14 12:00 | NUR ---
WITH MID LINE LEFT UPPER ARM 2 LUMEN WITH TPN AND LIPIDS RUNNING
[2019-12-14 12:55] VITALS: BP_SYST 156
--- NOTE | 2019-12-14 15:00 | NUR ---
Found midline catheter was out with dressing intact no bleeding , peripheral IV inserted to left forearm g 22 x 1 attempt, kept secured PPN/lipids kept transfusing . MID LINE insertion requested given to cost and sales record supervisor.
--- NOTE | 2019-12-14 15:11 | NUR ---
REPORT GIVEN TO Saskia WHO KNOWS THE PATIENTTHE
[2019-12-14 16:51] VITALS: BP_SYST 150
[2019-12-14] MEDS: ENOXAPARIN SODIUM 40 MG/0.4 ML SYRINGE SUBCUT SCH (17:10)
--- NOTE | 2019-12-14 19:15 | NUR ---
OPENING NOTES Receive report from Ashlyn MORGAN. Patient AOx1, no signs of respiratory distress and discomfort noted. On bilateral mitten restraints, no injury noted. TPN and Lipids, infusing well, patency noted. ON room air of 100% O2sat, tolerating well. Call light within reach. Safety precautions in place. Bed locked and lowest position. Bed alarm on. Will continue to monitor patient
[2019-12-14 20:00] VITALS: BP_SYST 130
[2019-12-14] MEDS: SODIUM ACETATE IV SCH ×11 (21:33)
[2019-12-14] MEDS: [UNRECOGNIZED DRUG - OTHER] IV SCH ×11 (21:33)
[2019-12-14] MEDS: SODIUM CHLORIDE IV SCH ×11 (21:33)
[2019-12-14] MEDS: TPN PERIPHERAL IV SCH ×11 (21:33)
--- NOTE | 2019-12-14 21:33 | NUR ---
MED PASS NEW TPN / LIPIDS HUNG New TPN and Lipids hung at this time, patient tolerated well. No signs od respiratory distress and discomfort noted. Breathing even and unlabored. On bilateral soft, mittens restraints, no injury noted. Safety precautions in place. Will continue to monitor patient
[2019-12-14] MEDS: FAT EMULSIONS 250 ML IV SCH (21:35)
[2019-12-14] MEDS: INSULIN REGULAR, HUMAN 100 UNITS/ML, 10 ML VIAL (humuLIN R) SUBCUT PRN (23:50)
[2019-12-15 00:06] VITALS: BP_SYST 147
--- NOTE | 2019-12-15 00:16 | NUR ---
RN ROUNDS Patient asleep at this time. No signs of respiratory distress and discomfort noted. Breathing even and unlabored. TPN and lipids infusing well, patency noted. Call light within reach. Safety precautions in place. Will continue to monitor patient.
--- NOTE | 2019-12-15 01:33 | NUR ---
RN ROUNDS Patient asleep at this time. No signs of respiratory distress and discomfort noted. Breathing even and unlabored. IVF's infusing well, patency noted. Mittens attached and secured, no signs of injury noted. Safety precautions in place. Will continue to monitor patient.
--- NOTE | 2019-12-15 02:37 | NUR ---
RN ROUNDS Patient asleep at this time. No signs of respiratory distress and discomfort noted. Breathing even and unlabored. IVF's infusing well, patency noted. SCD's operating well. Mittens attached and secured, no signs of injury noted. Safety precautions in place. Will continue to monitor patient.
--- NOTE | 2019-12-15 04:30 | NUR ---
RN ROUNDS Patient awake at this time. No signs of respiratory distress and discomfort noted. Breathing even and unlabored. IVF's infusing well, patency noted. SCD's operating well. Mittens attached and secured, no signs of injury noted. Safety precautions in place. Will continue to monitor patient.
[2019-12-15] MEDS: POTASSIUM CHLORIDE 10 MEQ in 0.45% NACL 1,000 ML IV SCH (05:18)
[2019-12-15] MEDS: INSULIN REGULAR, HUMAN 100 UNITS/ML, 10 ML VIAL (humuLIN R) SUBCUT PRN (05:23)
--- NOTE | 2019-12-15 06:40 | NUR ---
CLOSING NOTES Patient awake, AOx1. BS was 110, no coverage needed. No signs of respiratory distress and discomfort noted. On bilateral mitten restraints, no injury noted. TPN and Lipids, infusing well, patency noted. SCD's operating well. ON room air of 100% O2sat, tolerating well. Call light within reach. Safety precautions in place. Bed locked and lowest position. Bed alarm on. All needs met throughout the shift. Will continue to monitor until endorse to oncoming shift nurse for continuity of care
--- NOTE | 2019-12-15 07:40 | NUR ---
Initial notes: Patient awake, alert and oriented x1. Stable. I.V. access patent and running with TPN with lipids. Midline was accidentally pulled yesterday. On bilateral soft mittens.Call light within reach. Safety measures in placed. Report received at bedside.
[2019-12-15 08:00] VITALS: BP_SYST 125
[2019-12-15 09:05] LABS: ALANINE AMINOTRANSFERASE 21 U/L (12-78); ALBUMIN 2.2 g/dL (3.4-4.8); ANION GAP 6 (5-15); ASPARTATE AMINOTRANSFERASE 19 U/L (10-37); CALCIUM 8.1 mg/dL (8.4-11.0); CHLORIDE 106 mmol/L (98-107); CREATININE 0.94 mg/dL (0.55-1.30); GLUCOSE 118 mg/dL (70-99); PHOSPHORUS 3.3 mg/dL (2.7-4.5); POTASSIUM 3.2 mmol/L (3.5-5.1); SODIUM SERUM 135 mmol/L (136-145); TOTAL BILIRUBIN 0.7 mg/dL (0.0-1.0); UREA NITROGEN, BLOOD 26 mg/dL (8-21)
[2019-12-15 12:42] VITALS: BP_SYST 168
--- NOTE | 2019-12-15 12:59 | NUR ---
rounds: Patient resting on bed. No distress noted. Mittens in placed.
--- NOTE | 2019-12-15 13:37 | NUR ---
Midline: Picc line nurse inside the room. Midline insertion on going.
--- NOTE | 2019-12-15 14:26 | NUR ---
Nutrition F/U RD reviewed pt's current EMR including diet Hx, physician notes, nursing notes, pertinent labs/meds/procedures, care trends, and care activity. Current Nutrition Support: NPO x16 days -AND- PPN D20%, AA8.5% at 85 ml/hr, IL20% at 10 ml/hr via peripheral line Provides: 1522 kcal/day, 87 gm protein/day, 2280 ml total volume/day, and GIR: 2.7 gm CHO/kg/min Meets: 98% of lower end of estimated caloric needs and 109% of upper end of estimated protein needs Subjective information: Pt seen in bed, sleeping, no PPN infusing at time of RD visit. Per RN and MD notes, pt is disoriented and confused and pulled out midline. Today at 1337, per RN notes, pt's midline is re-inserted at bedside by PICC line RN. RD s/w Teresa at 1000. Estimated Energy Expenditure (kcals/day) 5566-1784 kcal/day (30-35 kcal/kg CBW for sepsis) Estimated Protein Required (g/day) 53-80 gm/day (1-1.5 gm/kg IBW for renal Dz predialysis/sepsis) Estimated Fluid Required (l/day) Per MD (renal Dz) Problem/Etiology/Signs/Symptoms Inadequate protein-energy intake r/t current diet order AEB NPO status and ST rec to keep pt on NPO and provide alternative method of feeding pt. *met Expected Outcomes/Goals Monitor TPN tolerance and intake w/ goal of pt meeting at least 75% of estimated nutritional needs, labs trending WNL, normal GI function, skin integrity/wt maintenance Dietitian Recommendations * Recommend continuing PPN D20%, AA8.5% at 85 ml/hr, IL20% at 10 ml/hr via peripheral line Provides: 1522 kcal/day, 87 gm protein/day, 2280 ml total volume/day, and GIR: 2.7 gm CHO/kg/min Meets: 98% of lower end of estimated caloric needs and 109% of upper end of estimated protein needs Follow Up High Risk: F/U in 2-3 days
--- NOTE | 2019-12-15 14:29 | NUR ---
Dietitian Recommendations * Recommend continuing PPN D20%, AA8.5% at 85 ml/hr, IL20% at 10 ml/hr via peripheral line Provides: 1522 kcal/day, 87 gm protein/day, 2280 ml total volume/day, and GIR: 2.7 gm CHO/kg/min Meets: 98% of lower end of estimated caloric needs and 109% of upper end of estimated protein needs Please see Nutrition F/U.
[2019-12-15 17:36] VITALS: BP_SYST 144
[2019-12-15] MEDS: ENOXAPARIN SODIUM 40 MG/0.4 ML SYRINGE SUBCUT SCH (17:40)
--- NOTE | 2019-12-15 18:28 | NUR ---
closing notes: Patient on bed resting. Needs attended. MIDline placed on L upper arm. Patient stable. Soft mittens on L hand. Safety measures in placed. Report will be given to restaurant shift supervisor.
--- NOTE | 2019-12-15 19:16 | NUR ---
OPENING NOTES Patient AOx1, follow on simple commands. No signs of respiratory distress and discomfort noted. On bilateral mitten restraints, no injury noted. On NPO. TPN and Lipids, IVF infusing well, patency noted. ON room air of 100% O2sat, tolerating well. Call light within reach. Safety precautions in place. Bed locked and lowest position. Bed alarm on. Will continue to monitor patient
[2019-12-15 20:00] VITALS: BP_SYST 146
[2019-12-15] MEDS: FAT EMULSIONS 250 ML IV SCH (20:58)
--- NOTE | 2019-12-15 20:58 | NUR ---
MED PASS NEW TPN / LIPIDS HUNG New TPN and Lipids hung at this time, patient tolerated well. IV site, midline patency noted. No signs of infiltration noted. No signs of respiratory distress and discomfort noted. Breathing even and unlabored. On bilateral soft, mittens restraints, no injury noted. Safety precautions in place. Will continue to monitor patient
[2019-12-15] MEDS ORDERED: TPN PERIPHERAL IV SCH ×11 (21:00)
[2019-12-15] MEDS ORDERED: [UNRECOGNIZED DRUG - OTHER] IV SCH ×11 (21:00)
[2019-12-15] MEDS ORDERED: SODIUM ACETATE IV SCH ×11 (21:00)
[2019-12-15] MEDS ORDERED: SODIUM CHLORIDE IV SCH ×11 (21:00)
[2019-12-15 22:46] VITALS: BP_SYST 152
--- NOTE | 2019-12-15 23:00 | NUR ---
SHEYLA CARE Sheyla care done at this time with help of Nanette WILSON. Patient tolerated well. No signs of respiratory distress and discomfort noted. Breathing even and unlabored. IVF's infusing well. SCD's operating well. Safety precautions in place. Will continue to monitor.
[2019-12-16] MEDS: INSULIN REGULAR, HUMAN 100 UNITS/ML, 10 ML VIAL (humuLIN R) SUBCUT PRN (00:15)
--- NOTE | 2019-12-16 05:40 | NUR ---
SHEYLA CARE/BS-106 BS checked done at this time. No coverage needed. Sheyla care done at this time as well. Patient tolerated well. Bilateral mittens restraints on place. Patient tried to pull out lines. No signs of respiratory distress and discomfort noted. Breathing even and unlabored. Safety precautions in place. Will continue to monitor patient.
[2019-12-16 06:52] LABS: ALANINE AMINOTRANSFERASE 23 U/L (12-78); ALBUMIN 2.1 g/dL (3.4-4.8); ANION GAP 4 (5-15); ASPARTATE AMINOTRANSFERASE 19 U/L (10-37); CALCIUM 8.1 mg/dL (8.4-11.0); CHLORIDE 106 mmol/L (98-107); CREATININE 0.74 mg/dL (0.55-1.30); GLUCOSE 109 mg/dL (70-99); PHOSPHORUS 3.5 mg/dL (2.7-4.5); POTASSIUM 3.1 mmol/L (3.5-5.1); SODIUM SERUM 137 mmol/L (136-145); TOTAL BILIRUBIN 0.6 mg/dL (0.0-1.0); UREA NITROGEN, BLOOD 25 mg/dL (8-21)
--- NOTE | 2019-12-16 06:53 | NUR ---
CLOSING NOTES Patient awake, AOx1. No signs of respiratory distress and discomfort noted. On bilateral mitten restraints, no injury noted. TPN and Lipids, IVF infusing well, patency noted. SCD's operating well. ON room air of 100% O2sat, tolerating well. Call light within reach. Safety precautions in place. Bed locked and lowest position. Bed alarm on. All needs met throughout the shift. Will continue to monitor until endorse to oncoming shift nurse for continuity of care
--- NOTE | 2019-12-16 07:30 | NUR ---
Initial notes: Patient awake, alert and oriented x1. Stable. .Midline in placed. Bilateral mittens applied. Safety measures in placed. Report received at bedside.
[2019-12-16 08:23] VITALS: BP_SYST 155
--- NOTE | 2019-12-16 10:30 | NUR ---
rounds: Patient resting on bed. no distress noted.
[2019-12-16 12:56] VITALS: BP_SYST 165
[2019-12-16 16:58] VITALS: BP_SYST 168
[2019-12-16] MEDS: ENOXAPARIN SODIUM 40 MG/0.4 ML SYRINGE SUBCUT SCH (17:49)
[2019-12-16] MEDS: POTASSIUM CHLORIDE 10 MEQ in 0.45% NACL 1,000 ML IV SCH (17:55)
--- NOTE | 2019-12-16 18:38 | NUR ---
Closing notes: Patient sleeping. Stable. Needs attended. Mittens on both hands. Safety measures in placed. Report will be given to day shift.
[2019-12-16] MEDS ORDERED: SODIUM ACETATE IV SCH ×11 (21:00)
[2019-12-16] MEDS ORDERED: TPN PERIPHERAL IV SCH ×11 (21:00)
[2019-12-16] MEDS ORDERED: [UNRECOGNIZED DRUG - OTHER] IV SCH ×11 (21:00)
[2019-12-16] MEDS ORDERED: SODIUM CHLORIDE IV SCH ×11 (21:00)
[2019-12-16] MEDS: FAT EMULSIONS 250 ML IV SCH (23:55)
--- NOTE | 2019-12-17 07:30 | NUR ---
Opening note Patient sitting up in bed at this time, A/Ox1, nonverbal. No signs of pain. No SOB. PICC line patent, intact, and infusing TPN and fluids as ordered. no adverse side effects. on bilateral mitten restraints. On safety and aspiration precautions, HOB kept elevated, bed alarm on, 3 side rails up, call light within reach. patient in stable condition. Will continue to monitor.
[2019-12-17 07:49] LABS: ANION GAP 6 (5-15); CHLORIDE 108 mmol/L (98-107); CREATININE 0.74 mg/dL (0.55-1.30); GLUCOSE 106 mg/dL (70-99); PHOSPHORUS 3.4 mg/dL (2.7-4.5); POTASSIUM 3.3 mmol/L (3.5-5.1); SODIUM SERUM 140 mmol/L (136-145); UREA NITROGEN, BLOOD 24 mg/dL (8-21)
[2019-12-17 08:00] VITALS: BP_SYST 163
[2019-12-17 08:46] VITALS: BP_SYST 134
[2019-12-17] MEDS: hydrALAZINE HCL 20 MG/ML VIAL IVP PRN (09:15)
--- NOTE | 2019-12-17 09:30 | NUR ---
medications Patient noted with elevated BP, PRN medication given as ordered. no adverse side effects. No other needs at this time.
[2019-12-17] MEDS ORDERED: CEFAZOLIN 1 GM IVPB PREMIX 50 ML IV ONE (11:30)
--- NOTE | 2019-12-17 11:30 | NUR ---
skin care patient noted with incontinence of urine. Skin care provided. Linens changed, no other needs at this time.
[2019-12-17] MEDS: POTASSIUM CHLORIDE 10 MEQ in 0.45% NACL 1,000 ML IV SCH (11:37)
[2019-12-17 12:11] VITALS: BP_SYST 90
--- NOTE | 2019-12-17 13:30 | NUR ---
rounds patient note with incontinence of urine, skin care provided.Linens changed, no other needs at this time.
--- NOTE | 2019-12-17 15:45 | NUR ---
rounds Patient resting in bed at this time, mittens removed, skin care provided. patient noted to be tugging at PICC line. Mittens replaced and reinforced. No other needs at this time.
[2019-12-17 16:49] VITALS: BP_SYST 97
--- NOTE | 2019-12-17 17:20 | NUR ---
rounds patient resting in bed, noted with incontinence of urine, skin care provided. Linens changed. no other needs at this time.
--- NOTE | 2019-12-17 18:44 | NUR ---
Closing note Patient sitting up in bed at this time, A/Ox1, nonverbal. No signs of pain. No SOB. PICC line patent, intact, and infusing TPN and fluids as ordered. no adverse side effects. on bilateral mitten restraints. On safety and aspiration precautions, HOB kept elevated, bed alarm on, 3 side rails up, call light within reach. patient in stable condition. All needs met.
--- NOTE | 2019-12-17 19:30 | NUR ---
OPENING NOTES RECEIVED CARE OF PT AND SBAR REPORT. PT IS RESTING IN BED, AAOX1, NO S/S OF ACUTE DISTRESS. PT ON BILATERAL MITTEN RESTRAINTS, NO SIGN OF INJURY NOTED. TPN, LIPIDS AND IVF ARE INFUSING WELL AT ORDERED RATES. SCD'S ARE IN PLACE. BREATHING IS UNLABORED TO ROOM AIR, NO SOB NOTED. SAFETY PRECAUTIONS ARE IN PLACE: BED IS LOCKED IN LOWEST POSITION, SIDE RAILS UP X3, BED ALARM ON, CALL LIGHT IS WITH PT. WILL CONTINUE TO MONITOR THROUGHOUT SHIFT.
[2019-12-17 20:00] VITALS: BP_SYST 114
[2019-12-17] MEDS: FAT EMULSIONS 250 ML IV SCH (20:53)
--- NOTE | 2019-12-17 20:53 | NUR ---
TPN/LIPIDS HUNG AND AND ARE INFUSING AT ORDERED RATE.
[2019-12-17] MEDS ORDERED: SODIUM CHLORIDE IV SCH ×11 (21:00)
[2019-12-17] MEDS ORDERED: [UNRECOGNIZED DRUG - OTHER] IV SCH ×11 (21:00)
[2019-12-17] MEDS ORDERED: SODIUM ACETATE IV SCH ×11 (21:00)
[2019-12-17] MEDS ORDERED: TPN PERIPHERAL IV SCH ×11 (21:00)
--- NOTE | 2019-12-17 23:43 | NUR ---
ACCUCHECK BLOOD SUGAR OF 82, NO INSULIN COVERAGE INDICATED PER SLIDING SCALE.
--- NOTE | 2019-12-18 01:48 | NUR ---
RN ROUNDS PT AWAKE. NO ACUTE DISTRESS NOTED. IVF, TPN AND LIPIDS ARE INFUSING AT ORDERED RATE. ALL NEEDS MET. FALL AND ASPIRATION PRECAUTIONS IN PLACE. CALL LIGHT IN REACH. CONTINUE TO MONITOR.
[2019-12-18 02:09] VITALS: BP_SYST 117
--- NOTE | 2019-12-18 03:28 | NUR ---
RN ROUNDS PT RESTING IN BED. NO ACUTE DISTRESS NOTED. IVF, TPN AND LIPIDS ARE INFUSING AT ORDERED RATE. ALL NEEDS MET. FALL AND ASPIRATION PRECAUTIONS IN PLACE. CALL LIGHT IN REACH. CONTINUE TO MONITOR.
--- NOTE | 2019-12-18 05:15 | NUR ---
ACCUCHECK BLOOD SUGAR OF 91, NO INSULIN COVERAGE INDICATED PER SLIDING SCALE.
--- NOTE | 2019-12-18 06:32 | NUR ---
CLOSING NOTE PT IS RESTING IN BED, AAOX1, NO S/S OF ACUTE DISTRESS. PT ON BILATERAL MITTEN RESTRAINTS, NO SIGN OF INJURY NOTED. TPN, LIPIDS AND IVF ARE INFUSING WELL AT ORDERED RATES. SCD'S ARE IN PLACE. BREATHING IS UNLABORED TO ROOM AIR, NO SOB NOTED. SAFETY PRECAUTIONS ARE IN PLACE: BED IS LOCKED IN LOWEST POSITION, SIDE RAILS UP X3, BED ALARM ON, CALL LIGHT IS WITH PT. WILL ENDORSE PT CARE TO DAY SHIFT RN.
[2019-12-18 07:37] LABS: INR 1.1 (0.80-1.20); PROTHROMBIN TIME 11.1 SECS (9.5-12.5)
[2019-12-18 07:39] LABS: ANION GAP 7 (5-15); CALCIUM 7.7 mg/dL (8.4-11.0); CHLORIDE 111 mmol/L (98-107); CREATININE 0.73 mg/dL (0.55-1.30); GLUCOSE 105 mg/dL (70-99); PHOSPHORUS 3.8 mg/dL (2.7-4.5); POTASSIUM 3.7 mmol/L (3.5-5.1); SODIUM SERUM 144 mmol/L (136-145); UREA NITROGEN, BLOOD 26 mg/dL (8-21)
[2019-12-18 08:00] VITALS: BP_SYST 164
[2019-12-18] MEDS: hydrALAZINE HCL 20 MG/ML VIAL IVP PRN (08:29)
--- NOTE | 2019-12-18 08:30 | NUR ---
GT placement patient left for GI lab for GT placement in stable condition. PICC line patent, intact, and infusing antibiotics as ordered. no adverse side effects noted. Patient left via bed.
[2019-12-18] MEDS ORDERED: MIDAZOLAM HCL 5 MG/5 ML VIAL ONE (08:50)
[2019-12-18] MEDS ORDERED: MEPERIDINE HCL/PF 25 MG/ML DISP.SYRIN ONE (08:50)
--- NOTE | 2019-12-18 10:30 | NUR ---
Patient returns patient returned from GI lab S/p GT placement. Additional order to not use GT for 12 hours. patient in stable condition.
[2019-12-18] MEDS: POTASSIUM CHLORIDE 10 MEQ in 0.45% NACL 1,000 ML IV SCH (11:22)
[2019-12-18 12:41] VITALS: BP_SYST 116
--- NOTE | 2019-12-18 12:45 | NUR ---
rounds patient noted with episode of incontinence, skin care provided, linens changed, no other needs at this time.
--- NOTE | 2019-12-18 14:45 | NUR ---
rounds patient noted with episode of incontinence, skin care provided, linens changed, oral care provided. no other needs at this time.
[2019-12-18 16:08] VITALS: BP_SYST 126
--- NOTE | 2019-12-18 16:45 | NUR ---
Rounds patient noted with redness on buttocks, aware, new orders received, pictures taken. Skin care provided. no other needs at this time.
--- NOTE | 2019-12-18 16:47 | NUR ---
Nutrition F/U (short note d/t high patient load) RD reviewed pt's current EMR including diet Hx, physician notes, nursing notes, pertinent labs/meds/procedures, care trends, and care activity. Pt is s/p PEG placement today. Plans to start TF at [address] Recommendation: Jevity 1.5 at 50 ml/hr (goal rate), Free Water Flush: please clarify w/ physician via GT Provides: 1800 kcal/day, 77 gm protein/day, and 912 ml free water/day Meets: 97% of upper end of estimated caloric needs and 96% of upper end of estimated protein needs -AND- Taper off of PPN support once TF is tolerated well Pt remains at high nutritional risk; RD to F/U within 2-3 days.
[2019-12-18 20:00] VITALS: BP_SYST 132
[2019-12-18] MEDS: FAT EMULSIONS 250 ML IV SCH (20:17)
--- NOTE | 2019-12-18 20:20 | NUR ---
MED PASS TPN AND LIPIDS HUNG AND AND ARE INFUSING AT ORDERED RATE. [place]STATIN APPLIED ORDERED.
[2019-12-18] MEDS: NYSTATIN 30 GM TOPICAL CREAM TP SCH (20:36)
[2019-12-18] MEDS ORDERED: SODIUM CHLORIDE IV SCH ×11 (21:00)
[2019-12-18] MEDS ORDERED: SODIUM ACETATE IV SCH ×11 (21:00)
[2019-12-18] MEDS ORDERED: [UNRECOGNIZED DRUG - OTHER] IV SCH ×11 (21:00)
[2019-12-18] MEDS ORDERED: TPN PERIPHERAL IV SCH ×11 (21:00)
--- NOTE | 2019-12-18 22:30 | NUR ---
TUBE FEEDING STARTED. JEVITY 1.2 IS RUNNING AT 40 CC/HR. ASPIRATION PRECAUTIONS ARE IN PLACE. WILL CONT TO MONITOR.
--- NOTE | 2019-12-18 23:15 | NUR ---
ACCUCHECK BLOOD SUGAR OF 109, NO INSULIN COVERAGE INDICATED PER SLIDING SCALE.
[2019-12-19 01:01] VITALS: BP_SYST 118
--- NOTE | 2019-12-19 01:25 | NUR ---
RN ROUNDS PT RESTING IN BED. NO ACUTE DISTRESS NOTED. IVF, TPN AND LIPIDS ARE INFUSING AT ORDERED RATE. TUBE FEEDING IS RUNNING ORDERED. ALL NEEDS MET. FALL AND ASPIRATION PRECAUTIONS IN PLACE. CALL LIGHT IN REACH. WILL CONTINUE TO MONITOR.
--- NOTE | 2019-12-19 03:15 | NUR ---
INCONTINENCE CARE Taylor care done at this time with help of CAROLEE WILSON. Patient tolerated well. No signs of respiratory distress or discomfort noted. Breathing even and unlabored. IVF's infusing well. SCD's operating well. Safety precautions in place. Aspiration precautions maintained. Will continue to monitor.
--- NOTE | 2019-12-19 04:10 | NUR ---
MIDLINE DRESSING CHANGE DONE USING STERILE TECHNIQUE. PT TOLERATED WELL.
--- NOTE | 2019-12-19 05:39 | NUR ---
ACCUCHECK BLOOD SUGAR OF 123, NO INSULIN COVERAGE INDICATED PER SLIDING SCALE.
--- NOTE | 2019-12-19 06:26 | NUR ---
CLOSING NOTE PT IS RESTING IN BED, AAOX1, NO S/S OF ACUTE DISTRESS. PT ON BILATERAL MITTEN RESTRAINTS, NO SIGN OF INJURY NOTED. TPN, LIPIDS AND IVF ARE INFUSING WELL AT ORDERED RATES. TUBE FEEDING IS RUNNING AT ORDERED RATE, 0 RESIDUAL NOTED. SCD'S ARE IN PLACE. BREATHING IS UNLABORED TO ROOM AIR, NO SOB NOTED. SAFETY PRECAUTIONS ARE IN PLACE: BED IS LOCKED IN LOWEST POSITION, SIDE RAILS UP X3, BED ALARM ON, CALL LIGHT IS WITH PT. ASPIRATION PRECAUTIONS OBSERVED. WILL ENDORSE PT CARE TO DAY SHIFT RN.
--- NOTE | 2019-12-19 07:39 | NUR ---
OPENING NOTE REPORT WAS ENDORSED BY NIGHT NURSE AT BED SIDE. PATIENT IS AWAKE AND ALERT SITTING IN BED NO SIGNS OF ANY DISTRESS, BREATHING IS EQUAL AND NON LABORED. PATIENT HAS ALL SAFETY PRECAUTIONS IN PLACE.BILATERAL MITTENS ARE IN PLACE. PATIENT HAS NO OTHER NEEDS AT THIS TIME. WILL CONTINUE TO MONITOR.
[2019-12-19 07:55] LABS: ANION GAP 9 (5-15); CALCIUM 8.2 mg/dL (8.4-11.0); CHLORIDE 112 mmol/L (98-107); CREATININE 0.73 mg/dL (0.55-1.30); GLUCOSE 96 mg/dL (70-99); PHOSPHORUS 2.9 mg/dL (2.7-4.5); POTASSIUM 3.7 mmol/L (3.5-5.1); SODIUM SERUM 146 mmol/L (136-145); UREA NITROGEN, BLOOD 29 mg/dL (8-21)
[2019-12-19] MEDS: NYSTATIN 30 GM TOPICAL CREAM TP SCH ×2 (08:39→20:14)
[2019-12-19 08:40] VITALS: BP_SYST 142
--- NOTE | 2019-12-19 08:40 | NUR ---
[facility] PATIENTS SCHEUDLED MEDICATION GIVEN PER ORDER. PATIENT IS AWAKE AND ALERT, NO SIGNS OF ANY DISTRESS, BREATHING IS EQUAL AND NON LABORED. PATIENT IS TOLERATING TUBE FEEDING WELL, WITH NO RESIDUAL, INCREASED FEEDING TO 50ML/HR ORDERED. PATIENT HAS ALL SAFETY PRECAUTIONS IN PLACE. Addendum: 12/19/19 at 0904 by Liz Merida RN PER PHARMACY TO WEEN PATIENT OFF PPN, LOWER AMOUNT PER HOUR BY 1/2 FOR 2 HOURS, AFTER TWO HOURS LOWER BY HALF AGIAN FOR TWO HOURS, AND THEN AFTER TWO MORE HOURS LOWER BY HALF. AFTER DONE OK TO STOP TPN. LIPIDS STOPPED PER ORDER. TPN IS NOW AT 40ML/HR. Addendum: 12/19/19 at 0920 by Liz Merida RN AT BEDSIDE. OK TO STOP LIPIDS, WEEN PPN PER PHARMACY THEN STOP, DECREASE IV FLUID TO 10ML/HR
[2019-12-19] MEDS ORDERED: COMMUNICATION ORDER XX ONE (08:45)
--- NOTE | 2019-12-19 10:14 | NUR ---
LOVENOX DC'D PATIENT WAS ON LOVENOX SECONDARY TO DVT ON R ARM. LOVENOX WAS DC'D PRIOR TO EGD WITH PEG PLACEMENT. NOTIFIED DR GLEASON IF HE WANTS TO RESUME THE LOVENOX, DR GLEASON SAID NO NEED TO RENEW THE MEDS.
--- NOTE | 2019-12-19 11:00 | NUR ---
PPN LOWERED TO 20ML/HR PER PHARMACY WEENING. PATIENT HAS ALL SAFETY PRECAUTIONS IN PLACE. NO SIGNS OF ANY DISTRESS, BREATHING IS EQUAL AND NON LABORED. NO OTHER NEEDS AT THIS TIME.
[2019-12-19] MEDS: POTASSIUM CHLORIDE 10 MEQ in 0.45% NACL 1,000 ML IV SCH (12:17)
--- NOTE | 2019-12-19 12:22 | NUR ---
ACCU CHECK DONE NO COVERAGE NEEDED. NEW IV FLUID BAG HUNG PER ORDER. PATIENT IS AWAKE AND ALERT, NO SIGNS OF ANY DISTRESS, BREATHING IS EQUAL AND NON LABORED. PATIENT HAS ALL SAFETY PRECAUTIONS IN PLACE. WILL CONTINUE TO MONITOR.
[2019-12-19 12:43] VITALS: BP_SYST 149
--- NOTE | 2019-12-19 13:00 | NUR ---
PPN LOWERED PPN TO 10ML/HR PER PHARMACY.PATIENT IS AWAKE EYES OPEN NO SIGNS OF ANY DISTRESS, BREATHING IS EQUAL AND NON LABORED. PATIENT HAS ALL SAFETY PRECAUTIONS IN PLACE. NO OTHER NEEDS AT THIS TIME.
--- NOTE | 2019-12-19 15:00 | NUR ---
PPN STOP COMPLETELY. PATIENT SHOWS NO SIGNS OF ANY DISTRESS, BREATHING IS EQUAL AND NON LABORED.PATIENT HAS ALL SAFETY PRECAUTIONS IN PLACE. NO OTHER NEEDS AT THIS TIME.
[2019-12-19 16:31] VITALS: BP_SYST 140
[2019-12-19] MEDS ORDERED: LIDOCAINE/EPI 1% 1:100000 20 ML VIAL INJ ONE (16:45)
--- NOTE | 2019-12-19 18:38 | NUR ---
RN CLOSING NOTE PATIENT IS SITTING UP IN BED NO SIGNS OF ANY DISTRESS, BREATHING IS EQUAL AND NON LABORED. PATIENT HAS ALL SAFETY PRECAUTIONS IN PLACE. PATIENT HAS NO OTHER NEEDS AT THIS TIME
--- NOTE | 2019-12-19 19:10 | NUR ---
CHANGE OF SHIFT; pt. awake but non verbal. does not follow commands. On g tube feed with Jevity @ 50 cc./hr. IVF infusing. on fall risk precautions. side rails up, unable to use call light, will do frequent rounds. no acute distress. will reassess later.
--- NOTE | 2019-12-19 20:00 | NUR ---
NOTES: pt. quite restless when received, on restraints with both mittens on both hands due to pulling out. opens eyes when name called. IV on left arm with mid line catheter ut pretty swollen and red. right arm with thrombus, with some discoloration on upper arm. on room air. VS checked. sequentials on both legs. g tube feeding with Jevity @ 50 cc/hr, binder intact. checked residual @ 20 cc. pt. incontinent of urine. bed alarm on.
--- NOTE | 2019-12-19 20:30 | NUR ---
NOTES: due hs care done with BRIDGE MANAGER, repositioned. pt. incontinent of urine, kept dry. on room air. skin reddened on coccyx/sacral area, Z geoffrey applied.
--- NOTE | 2019-12-19 22:23 | NUR ---
NOTES: pt. checked and sleeping, condition observed. making hourly rounds.
[2019-12-19 23:19] VITALS: BP_SYST 139
--- NOTE | 2019-12-20 01:00 | NUR ---
NOTES: condition unchanged. pt. sleeping when checked. BS checked 113, no sliding scale coverage. IV TPN discontinued by day shift since g tube fee in progress, rate up to 60 cc/hr.
--- NOTE | 2019-12-20 03:00 | NUR ---
NOTES: repositioned. still on bilateral hands with mittens., gets agitated at intervals.
--- NOTE | 2019-12-20 04:30 | NUR ---
NOTES: complete am care done with DOCUMENT CONTROL COORDINATOR, wash his hands and put new set of mittens. repositioned. checked residual @ 30 cc, tolerating tube feeding. oral care done. IV midline on left arm, remains swollen, kept elevated with pillows. kept warm and comfortable. HOB elevated.
--- NOTE | 2019-12-20 05:30 | NUR ---
NOTES: pt. been sleeping, opens eyes on stimulation. condition unchanged.
--- NOTE | 2019-12-20 06:37 | NUR ---
CLOSING NOTES; pt. sleeping when checked. bilateral mittens in place, when release, able to grab anything and pretty strong with long nails. G tube continuous, abdominal binder in place, g tube site clean. IVF patent, tko . on room air, fall risk precautions. for further care and assistance. frequent rounds. will endorse to day shift.
[2019-12-20 08:00] VITALS: BP_SYST 163
[2019-12-20] MEDS: hydrALAZINE HCL 20 MG/ML VIAL IVP PRN (08:49)
[2019-12-20] MEDS: NYSTATIN 30 GM TOPICAL CREAM TP SCH (09:03)
--- NOTE | 2019-12-20 11:11 | NUR ---
Discharge Planning: [facility] has faxed pt's information to [facility] ([phone] [phone]); where pt came from. ROUGHING MILL OPERATOR will follow up to see if pt can DC back to [facility] today. Addendum: 12/20/19 at 1231 by Liz Fong LCSW ROUGHING MILL OPERATOR spoke with Eliane; pt has been accepted and can return to [facility]. ROUGHING MILL OPERATOR spoke with nurse to alert her of pt's acceptance back to [facility]. [facility] has arranged transportation with [facility] ([phone]); vegetable picker at 3:30pm. Packet has been placed at nurses station.
[2019-12-20 12:28] VITALS: BP_SYST 153
[2019-12-20 12:53] VITALS: BP_SYST 163
[2019-12-20 15:21] VITALS: BP_SYST 154
[2019-12-20 16:19] VITALS: BP_SYST 137
== END 2019-12-20 15:55 | DRG 871 ==
LOC: SED 18:04 → STU 23:07 → SMU 11-29 22:53
PROVIDERS: ADMIT Internal Medicine; ATTEND Internal Medicine
PROC: 05HB33Z Insertion of Infusion Device into Right Basilic Vein, Percutaneous Approach (ICD-10-PCS; principal; 2019-12-15)
PROC: B54MZZA Ultrasonography of Right Upper Extremity Veins, Guidance (ICD-10-PCS; 2019-12-15)
PROC: 0DH63UZ Insertion of Feeding Device into Stomach, Percutaneous Approach (ICD-10-PCS; 2019-12-18)
DX: A41.9 Sepsis, unspecified organism (principal); J96.90 Respiratory failure, unspecified, unspecified whether with hypoxia or hypercapnia; J18.1 Lobar pneumonia, unspecified organism; G93.40 Encephalopathy, unspecified; N39.0 Urinary tract infection, site not specified; E46 Unspecified protein-calorie malnutrition; E87.0 Hyperosmolality and hypernatremia; J44.0 Chronic obstructive pulmonary disease with (acute) lower respiratory infection; E87.1 Hypo-osmolality and hyponatremia; E86.0 Dehydration; F20.9 Schizophrenia, unspecified; E87.8 Other disorders of electrolyte and fluid balance, not elsewhere classified; F03.90 Unspecified dementia, unspecified severity, without behavioral disturbance, psychotic disturbance, mood disturbance, and anxiety; K29.70 Gastritis, unspecified, without bleeding; N18.9 Chronic kidney disease, unspecified; R13.12 Dysphagia, oropharyngeal phase; Y95 Nosocomial condition; M19.90 Unspecified osteoarthritis, unspecified site; F41.9 Anxiety disorder, unspecified; Z68.20 Body mass index [BMI] 20.0-20.9, adult; Z79.899 Other long term (current) drug therapy; Z74.01 Bed confinement status
CPT/HCPCS: 36415; 43246; 71045; 71250-TC; 73060-TC; 80048; 80053; 81000-TC; 82550-TC; 82962; 83605; 83735-TC; 84100-TC; 84443-TC; 84478-TC; 84484; 85025; 85610-TC; 85730-TC; 87040-TC; 87081; 87086; 92610-GN; 93005; 93970; 96360; 99285; C1751; G0378; G0482; J0360; J0456; J0610; J0690; J0696; J1650; J1815; J1956; J2060; J2175; J2250; J3475; J3480; J7050; J7131